=== PATIENT | female | born 1950 | race Caucasian/White ===

== ENCOUNTER 2018-10-25 15:21 | Emergency (ER) | payer MEDICARE, OTHER ==
[~2018-10-25] VITALS: Ht 152.4 cm; Wt 85.7 kg
[~2018-10-25 15:21] MED LIST: ALBU.083IS IH; AMLO10 PO; ASPI81CH PO; ASPI81EC PO; ATEN100 PO; ATOR40TA PO; BUME1 PO; BUME2 PO; CARB200; CARB200 PO; CARB200ER PO; CIME400 PO; CLON.2 PO; CLON.3TP TP; CLOP75 PO; CODGUAEL; CYCL10 PO; DIPH50 PO; DOCU100 PO; DOXA2 PO; ESOM20 PO; ESTRO; FAMO20 PO; FERR325 PO; FLUC150A; FLUSAL2505; FLUSAL2505 IH; FLUT.05NI; Ferrous Sulfat325 M2 PO; HYDACE5 PO; HYDCHL25 PO; HYDR1TAB94 PO; IBUP200 PO; IBUP800; IBUP800 PO; INSULANPEN SC; ISON300; Isosorbide Mono30 MG PO; LORA.5 PO; MECL25; MECL25 PO; META800 PO; METF500 PO; METF500C PO; METOPROLOL TART75 MG PO; MOTION RELIEF25 MG PO; Macrobid 100 M100 MG PO; Metoprolol Tar100 MG; NAPR250 PO; NITR.4SL SL; NITR100CA PO; OXYACE5T PO; OXYC5 PO; POTA10T PO; POTCHL20ER; POTCHL20ER PO; Plavix75 MG PO; RANO500T PO; SENN187 PO; SERT100 PO; SERT50 PO; SPIHYD; TELM80 PO; TIOT18 INH; TRIA80TC TOP; [UNRECOGNIZED DRUG - OTHER] PO
[2018-10-25 17:25] LABS: BASOPHILS ABSOLUTE AUTO 0.02 K/mm3 (0.00-0.23); BASOPHILS PERCENT AUTO 0 % (0-2); EOSINOPHILS ABSOLUTE AUTO 0.28 K/mm3 (0.00-0.68); EOSINOPHILS PERCENT AUTO 4 % (0-6); Hematocrit 33.7 % (33.0-51.0); Hemoglobin 10.7 g/dL (11.5-16.0); IMMATURE GRAN ABSOLUTE AUTO 0.03 K/mm3 (0.00-0.10); IMMATURE GRAN PERCENT AUTO 1 % (0-1); LYMPHOCYTES ABSOLUTE AUTO 1.19 K/mm3 (0.84-5.20); LYMPHOCYTES PERCENT AUTO 18 % (21-46); MONOCYTES ABSOLUTE AUTO 0.44 K/mm3 (0.16-1.47); MONOCYTES PERCENT AUTO 7 % (4-13); Mean Corpuscular HGB 26.5 pg (26.0-34.0); Mean Corpuscular HGB Conc 31.8 g/dL (31.5-36.5); Mean Corpuscular Volume 83 fL (80-100); Mean Platelet Volume 11.4 fL (9.1-12.4); NEUTROPHILS ABSOLUTE AUTO 4.58 K/mm3 (1.96-9.15); NEUTROPHILS PERCENT AUTO 70 % (41-73); Platelet Count 197 K/mm3 (150-400); RDW Coefficient Variation 14.6 % (11.7-14.2); RDW Standard Deviation 44.8 fL (35.1-46.3); Red Blood Cell Count 4.04 M/mm3 (3.80-5.20); White Blood Cell Count 6.54 K/mm3 (4.00-11.30)
[2018-10-25 17:42] LABS: Alanine Aminotransfer (ALT/SGP 15 U/L (12-78); Albumin, Blood 3.3 g/dL (3.4-5.0); Albumin/Globulin Ratio 0.9 (0.8-1.8); Alk Phos 107 U/L (50-136); Anion Gap 8 mmol/L (6-16); Aspartate Aminotrans (AST/SGOT 11 U/L (12-37); Bilirubin, Total 0.3 mg/dL (0.1-1.0); Blood Urea Nitrogen 27 mg/dL (8-24); Bun/Creatinine Ratio 22.3 (12.0-20.0); CO2, Blood 27 mmol/L (21-32); Calcium, Blood 8.2 mg/dL (8.5-10.1); Chloride, Blood 106 mmol/L (98-108); Creatinine, Blood 1.21 mg/dL (0.40-1.00); Globulin, Blood 3.6 g/dL (2.2-4.0); Glomerular Filtration Rate 47 (60-); Glucose, Blood 103 mg/dL (70-99); Potassium, Blood 4.2 mmol/L (3.5-5.5); Sodium, Blood 141 mmol/L (136-145); Total Protein, Blood 6.9 g/dL (6.4-8.2); Troponin I <0.015 ng/mL (0.000-0.040)
[2018-10-25 17:57] LABS: Source, Urine Voided
[2018-10-25 18:00] LABS: Appearance, Urine Clear (Clear); Bilirubin, Urine Neg (Neg); Blood, Urine Neg (Neg); Color, Urine Yellow (P-Yellow); Glucose Qualitative, Urine Neg (Neg); Ketones, Urine Neg (Neg); Leukocyte Esterase, Urine 1+ (Neg); Nitrite, Urine Neg (Neg); Protein, Urine 1+ (Neg); Specific Gravity, Urine 1.015 (1.003-1.022); Urobilinogen, Urine NORM (Normal)
[2018-10-25 18:50] LABS: Red Blood Cells, Urine 0-2 /hpf (0-2)
[2018-10-25 18:51] LABS: Bacteria Mod /hpf; Squamous Epithelial Cells Many /hpf (Few)
== END 2018-10-25 19:27 | disposition home or self-care (01) ==
LOC: ER 15:21
PROVIDERS: Emergency Medicine
DX: R55 Syncope and collapse (principal); I25.10 Atherosclerotic heart disease of native coronary artery without angina pectoris; Z88.2 Allergy status to sulfonamides; Z88.8 Allergy status to other drugs, medicaments and biological substances; Z79.899 Other long term (current) drug therapy; Z79.84 Long term (current) use of oral hypoglycemic drugs; Z79.82 Long term (current) use of aspirin; I10 Essential (primary) hypertension; E78.00 Pure hypercholesterolemia, unspecified; Z86.73 Personal history of transient ischemic attack (TIA), and cerebral infarction without residual deficits; E11.9 Type 2 diabetes mellitus without complications; Z87.891 Personal history of nicotine dependence
CPT/HCPCS: 80053; 81001; 84484; 85025; 87086; 93005; 93010; 99284-25

== ENCOUNTER 2018-12-16 15:46 | Inpatient (IN) | payer MEDICARE, OTHER ==
[~2018-12-16] VITALS: Ht 152.4 cm; Wt 89.0 kg
[~2018-12-16 15:46] MED LIST changes: +METO50 PO; -METOPROLOL TART75 MG PO
[2018-12-16 16:30] LABS: BASOPHILS ABSOLUTE AUTO 0.02 K/mm3 (0.00-0.23); BASOPHILS PERCENT AUTO 0 % (0-2); EOSINOPHILS ABSOLUTE AUTO 0.31 K/mm3 (0.00-0.68); EOSINOPHILS PERCENT AUTO 5 % (0-6); Hematocrit 35.8 % (33.0-51.0); Hemoglobin 11.5 g/dL (11.5-16.0); IMMATURE GRAN ABSOLUTE AUTO 0.01 K/mm3 (0.00-0.10); IMMATURE GRAN PERCENT AUTO 0 % (0-1); LYMPHOCYTES ABSOLUTE AUTO 1.27 K/mm3 (0.84-5.20); LYMPHOCYTES PERCENT AUTO 20 % (21-46); MONOCYTES ABSOLUTE AUTO 0.45 K/mm3 (0.16-1.47); MONOCYTES PERCENT AUTO 7 % (4-13); Mean Corpuscular HGB Conc 32.1 g/dL (31.5-36.5); Mean Corpuscular Volume 87 fL (80-100); Mean Platelet Volume 10.5 fL (9.1-12.4); NEUTROPHILS ABSOLUTE AUTO 4.19 K/mm3 (1.96-9.15); NEUTROPHILS PERCENT AUTO 67 % (41-73); Platelet Count 268 K/mm3 (150-400); RDW Coefficient Variation 14.5 % (11.7-14.2); RDW Standard Deviation 46.2 fL (35.1-46.3); Red Blood Cell Count 4.11 M/mm3 (3.80-5.20); White Blood Cell Count 6.25 K/mm3 (4.00-11.30)
[2018-12-16 16:48] LABS: Alanine Aminotransfer (ALT/SGP 15 U/L (12-78); Albumin, Blood 3.5 g/dL (3.4-5.0); Albumin/Globulin Ratio 0.9 (0.8-1.8); Alk Phos 137 U/L (50-136); Anion Gap 6 mmol/L (6-16); Aspartate Aminotrans (AST/SGOT 15 U/L (12-37); Bilirubin, Total 0.2 mg/dL (0.1-1.0); Blood Urea Nitrogen 21 mg/dL (8-24); Bun/Creatinine Ratio 18.1 (12.0-20.0); CO2, Blood 28 mmol/L (21-32); Calcium, Blood 8.7 mg/dL (8.5-10.1); Chloride, Blood 106 mmol/L (98-108); Creatinine, Blood 1.16 mg/dL (0.40-1.00); Glomerular Filtration Rate 49 (60-); Glucose, Blood 105 mg/dL (70-99); Potassium, Blood 4.8 mmol/L (3.5-5.5); Sodium, Blood 140 mmol/L (136-145); Total Protein, Blood 7.5 g/dL (6.4-8.2); Troponin I <0.015 ng/mL (0.000-0.040)
[2018-12-16] MEDS ORDERED: POTA10T PO (20:18)
[2018-12-16] MEDS ORDERED: DOCU100 PO (20:25)
[2018-12-16] MEDS ORDERED: TORSE20 PO (20:54)
[2018-12-16] MEDS ORDERED: Isosorbide Mono30 MG PO (20:54)
--- NOTE | 2018-12-16 23:16 | NUR ---
BLOOD SUGAR: APPROX 2219 PATIENTS BLOOD GLUCOSE WAS 44, PATIENT ALERT AND DENIES ANY SYMPTOMS. PATIENT PROVIDED WITH A SANDWICH AND TAPIOCA PUDDING PER REQUEST, ALL VSS. APPROX 2255 PATIENT BLOOD SUGAR 115
[2018-12-17 04:36] LABS: Bun/Creatinine Ratio 19.3 (12.0-20.0); Calcium, Blood 8.9 mg/dL (8.5-10.1); Creatinine, Blood 1.09 mg/dL (0.40-1.00); Potassium, Blood 3.9 mmol/L (3.5-5.5)
--- NOTE | 2018-12-17 04:38 | NUR ---
SHIFT SUMMARY: PATIENT ARRIVED TO [facility] AT APPROX 2140 FROM ED. PATIENT ALERT AND ORIENTED AND STABLE WITH AMBULATION. VSS, SON AT BEDSIDE, CALL LIGHT WITHIN REACH, ADMISSION COMPLETED AND PATIENT ORIENTED TO ROOM, CALL LIGHT AND HOSPITAL POLICIES.
--- NOTE | 2018-12-17 12:44 | NUR ---
DR TIPTON SPOKE WITH DR TIPTON REGARDING PT BLOOD PRESSURE. THIS MORNING DURING ROUNDS HE STATED HE WANTED TO SEE IF THE B/P REDUCED WITH THE PO MEDICATIONS NOT IV. ADMINISTERED PO MED AND RECHECKED PER INSTRUCTIONS THIS AFTERNOON. PT SYSTOLIC CONTINUES IN 190'S, CALLED DR TIPTON AND HE IS ADDING ADDITIONAL PO MEDS TO BE GIVEN, WAIT ONE HOUR, RECHECK B/P, IF IT HAS NOT DECREASED, THEN GIVE HYDRALAZINE IV. THIS NURSE TO ADD NURSE NOTIFY AND FOLLOW UP.
--- NOTE | 2018-12-17 17:49 | NUR ---
HYPERTENSION: PT HAS CONTINUED TO HAVE HYPERTENSION THROUGHOUT THE SHIFT, HER DIASTOLIC PRESSURE INCREASED FROM 60'S TO 110'S THIS AFTERNOON. CALLED DR. TIPTON TO REPORT CHANGE AND ASK FOR FURTHER ORDERS. DR TIPTON ASKED TO HAVE CATAPRESS GIVEN EARLY AND ADD THE SUGGESTED MEDICATIONS FROM DR. MOSQUERA. ENTERED CHANGES AND WILL ADMINISTER MEDICATION. IF THESE CHANGES DO NOT DECREASE B/P, START NICARDAPINE DRIP AND IF NECESSARY TRANSFER TO ICU. WILL ENTER NURSE NOTIFY TO COMMUNICATE THESE VERBAL ORDERS.
--- NOTE | 2018-12-17 19:51 | NUR ---
PT CALM AT TIME OF SHIFT CHANGE, DIASTOLIC BLOOD PRESSURE HAS RETURNED TO 60'S AFTER INTERVENTIONS AND MEDICATION ADMINISTRATION. WILL CONTINUE TO MONITOR AND GIVE REPORT TO NOC RN.
[2018-12-18 04:26] LABS: Bun/Creatinine Ratio 17.4 (12.0-20.0); Calcium, Blood 8.9 mg/dL (8.5-10.1); Creatinine, Blood 1.21 mg/dL (0.40-1.00); Potassium, Blood 3.6 mmol/L (3.5-5.5)
--- NOTE | 2018-12-18 05:57 | NUR ---
ELEVATED BLOOD PRESSURE DR GALVEZ NOTIFIED THAT PATIENT'S BLOOD PRESSURE IS IN THE 180'S-190'S SYSTOLICALLY, THAT THE PATIENT IS NAUSOUS AND HAS A HEADACHE. A ONE TIME DOES OF 10 MG OF HYDRALAZINE IV WAS ORDERED. THEN A HALF HOUR AFTER THAT DOES, IF PATIENT'S SYSTOLIC BLOOD PRESSURE IS STILL GREATER THAN 180 ANOTHER 10 MG DOSE OF IV HYDRALAZINE IS TO BE GIVEN.
--- NOTE | 2018-12-18 06:46 | NUR ---
SHIFT SUMMARY PATIENT APPEARED TO SLEEP WELL THROUGHOUT THE NIGHT. HOWEVER, PATIENT STARTED EXPERIENCING NAUSEA, A HEADACHE, AND ELEVATED BLOOD PRESSURE, AND SHAKES THIS AM. FIRST DOSE OF HYDRALAZINE GIVERN BUT SECOND DOSE A HALF HOUR LATER WAS HELD DUE TO PATIENT'S SYSTOLIC BLOOD PRESSURE BEING IN THE 150'S. PATIENT STATES SHE STILL DOESN'T "FEEL GOOD" THIS MORNING THROUGH. PATIENT CURRENTLY RESTING IN THE DARK ROOM, WITH A COOL CLOTH ON HER FORHEAD. PATIENT APPEARS TO BE NAPPING ON AND OFF THIS MORNING. VITAL SIGNS CHARTED. PATIENT'S STAYED THE NIGHT AT THE BEDSIDE. WILL CONTINUE TO MONITOR PATIENT AND REPORT TO ONCOMING RN.
--- NOTE | 2018-12-18 08:00 | NUR ---
PO B/P MEDS GIVEN WITH SIP OF WATER WILL RECHECK DR TIPTON BY TO SEE PT WILL ADJUST MEDS AWAITING DR WHYTE FOR UPPER ENDO TODAY NPO WILL GIVE OTHER MEDS AFTER
--- NOTE | 2018-12-18 09:49 | NUR ---
PT PLACED ON NC BIOX 87% RA PT REPORTED BEING DIZZY WHEN GETTING UP WITH RT EARLIER STILL ALSO REPORTING HEARTBEAT IN HER EAR
--- NOTE | 2018-12-18 11:15 | NUR ---
PT TRANSPORTED TO DAYSURGERY FOR SCOPE
--- NOTE | 2018-12-18 11:20 | NUR ---
History, Chart, Medications and Allergies reviewed before start of procedure. Patient confirms NPO status and agrees with scheduled surgery.
--- NOTE | 2018-12-18 11:25 | NUR ---
12/18/18 1125 Virgilio Rene PATIENT DETERMINED TO BE ASA APPROPRIATE FOR PROPOFOL SEDATION PRIOR TO START OF PROCEDURE BY . 3-LEAD EKG REVIEWED WITH PHYSICIAN PRIOR TO START OF PROCEDURE.PATIENT CONFIRMS NPO STATUS AND AGREES WITH SCHEDULED PROCEDURE.History, Chart, Medications and Allergies reviewed before start of procedure.MONITOR INTACT WITH CONTINUOUS PULSE OXIMETRY AND INTERMITTENT BP.O2 VIA N/C INTACT THROUGHOUT SEDATION/PROCEDURE.Bite Block Placed
--- NOTE | 2018-12-18 12:03 | NUR ---
PT BACK TO ROOM PCU 15 FROM UPPER ENDO FINDING ULCER NO PATH
--- NOTE | 2018-12-18 15:57 | NUR ---
pt visiting with family stated she eddie food well no nausea or pain biox on ra went down to 88% when pt started to doze put pt on 2 l nc up to 94%
--- NOTE | 2018-12-18 20:11 | NUR ---
Shift Summary: Pt has been resting in room after coming back from Scope. Has been dozing on and off. States that she is just tired. See endo report for results of scope. Pt BP has improved this shift, HR has been stable. Pt biox has been 87-90's. Has required O2 PRN for sleep. Pt has tolerated diet post scope and has denied pain. Report was given to night RN. Stable at the end of shift.
[2018-12-19 04:39] LABS: Bun/Creatinine Ratio 19.2 (12.0-20.0); Calcium, Blood 8.7 mg/dL (8.5-10.1); Creatinine, Blood 1.2 mg/dL (0.40-1.00); Potassium, Blood 3.5 mmol/L (3.5-5.5)
--- NOTE | 2018-12-19 06:22 | NUR ---
SHIFT SUMMARY PATIENT PLEASENT AND COOPERATIVE THROUGHOUT THE NIGHT. PATIENT APPEARED TO SLEEP WELL LAST NIGHT WITH NO COMPLAINTS OF FURTHER HEADACHE, NAUSEA, OR SHAKINESS. PATIENT'S CPAP AND CONTINUOUS BIOX IN LACE THROUGHOUT THE NIGHT. PATIENT'S STAYED THE NIGHT AT THE BEDSIDE. VITAL SIGNS CHARTED. WILL CONTINUE TO MONITOR PATIENT AND REPORT TO ONCOMING RN.
--- NOTE | 2018-12-19 08:16 | NUR ---
RECEIVED REPORT AND ASSUMED CARE OF PATIENT. SHE IS PLEASANT AND ANXIOUS TO GO HOME TODAY.
--- NOTE | 2018-12-19 10:41 | NUR ---
DR GALLEGO TO SEE PATIENT, PLEASED WITH PROGRESS AND STATED SHE WILL PLACE D/C ORDERS FOR PATIENT.
[2018-12-19] MEDS ORDERED: LOSA50 PO (11:37)
[2018-12-19] MEDS ORDERED: PANT20 PO (11:38)
--- NOTE | 2018-12-19 16:15 | NUR ---
PT EDUCATED ABOUT MEDICATION CHANGES AND WENT OVER LIST AND DOSAGES. ANSWERED QUESTIONS FOR FAMILY RELATED TO DISCHARGE.
== END 2018-12-19 13:37 | disposition home or self-care (01) | DRG 384 ==
LOC: ER 15:46 → PCU 21:42
PROVIDERS: Internal Medicine; Physician Assistant; ADMIT Family Medicine
DX: K25.9 Gastric ulcer, unspecified as acute or chronic, without hemorrhage or perforation (principal); I50.32 Chronic diastolic (congestive) heart failure; Z68.42 Body mass index [BMI] 45.0-49.9, adult; R00.1 Bradycardia, unspecified; E66.01 Morbid (severe) obesity due to excess calories; F32.9 Major depressive disorder, single episode, unspecified; J44.9 Chronic obstructive pulmonary disease, unspecified; I11.0 Hypertensive heart disease with heart failure; K22.2 Esophageal obstruction; G47.33 Obstructive sleep apnea (adult) (pediatric); T44.7X5A Adverse effect of beta-adrenoreceptor antagonists, initial encounter; I16.0 Hypertensive urgency; I25.10 Atherosclerotic heart disease of native coronary artery without angina pectoris; K21.9 Gastro-esophageal reflux disease without esophagitis; E11.42 Type 2 diabetes mellitus with diabetic polyneuropathy; Z86.73 Personal history of transient ischemic attack (TIA), and cerebral infarction without residual deficits; I25.2 Old myocardial infarction; Z99.81 Dependence on supplemental oxygen; Z79.01 Long term (current) use of anticoagulants; Z79.82 Long term (current) use of aspirin; Z95.5 Presence of coronary angioplasty implant and graft
CPT/HCPCS: 36415; 71046; 80048; 80053; 82947; 83690; 83880; 84484; 85025; 93005; 93010; 94640; 94760; 94762; 97162; 97530; 99285-25; C9113; J0360; J1650; J1815; J2405; J2704; J7120

== ENCOUNTER → 2018-12-30 | Outpatient (CLI) | payer MEDICARE, OTHER ==
[~2018-12-30] MED LIST changes: +LOSA50 PO; +PANT20 PO; +TORSE20 PO
[2018-12-30 19:23] LABS: Bun/Creatinine Ratio 14.4 (12.0-20.0); Creatinine, Blood 1.11 mg/dL (0.40-1.00); Potassium, Blood 4.3 mmol/L (3.5-5.5)
== END | disposition home or self-care (01) ==
LOC: LAB 19:01 → LAB SHORT 19:01
PROVIDERS: Nurse Practitioner Family
DX: N18.9 Chronic kidney disease, unspecified (principal)
CPT/HCPCS: 80048

== ENCOUNTER → 2019-03-30 | Outpatient (CLI) | payer MEDICARE, OTHER ==
[~2019-03-30] MED LIST changes: -ALBU.083IS IH; +ALBU2.5V5 INH; +Catapres0.2 MG; +ONDA4ODT MM
[2019-04-01 15:14] LABS: Stool Occult Bld Immuno 1 Negative (NEGATIVE); Stool Occult Bld Immuno 2 Negative (NEGATIVE)
== END | disposition home or self-care (01) ==
LOC: LAB SHORT 09:00 → LAB 09:00
PROVIDERS: Internal Medicine Gastroenterology
DX: Z12.11 Encounter for screening for malignant neoplasm of colon (principal)
CPT/HCPCS: 82274

== ENCOUNTER 2019-04-02 11:27 | Emergency (ER) | payer MEDICARE, OTHER ==
[~2019-04-02] VITALS: Ht 152.4 cm; Wt 88.0 kg
[~2019-04-02 11:27] MED LIST changes: -Catapres0.2 MG; -ONDA4ODT MM
[2019-04-02 12:22] LABS: BASOPHILS ABSOLUTE AUTO 0.03 K/mm3 (0.00-0.23); BASOPHILS PERCENT AUTO 1 % (0-2); EOSINOPHILS ABSOLUTE AUTO 0.22 K/mm3 (0.00-0.68); EOSINOPHILS PERCENT AUTO 4 % (0-6); Hematocrit 35.6 % (33.0-51.0); Hemoglobin 11.9 g/dL (11.5-16.0); IMMATURE GRAN ABSOLUTE AUTO 0.01 K/mm3 (0.00-0.10); IMMATURE GRAN PERCENT AUTO 0 % (0-1); LYMPHOCYTES ABSOLUTE AUTO 0.85 K/mm3 (0.84-5.20); LYMPHOCYTES PERCENT AUTO 15 % (21-46); MONOCYTES ABSOLUTE AUTO 0.34 K/mm3 (0.16-1.47); MONOCYTES PERCENT AUTO 6 % (4-13); Mean Corpuscular HGB 28.7 pg (26.0-34.0); Mean Corpuscular HGB Conc 33.4 g/dL (31.5-36.5); Mean Corpuscular Volume 86 fL (80-100); Mean Platelet Volume 10.1 fL (9.1-12.4); NEUTROPHILS ABSOLUTE AUTO 4.07 K/mm3 (1.96-9.15); NEUTROPHILS PERCENT AUTO 74 % (41-73); Platelet Count 244 K/mm3 (150-400); RDW Coefficient Variation 12.8 % (11.7-14.2); RDW Standard Deviation 39.7 fL (35.1-46.3); Red Blood Cell Count 4.15 M/mm3 (3.80-5.20); White Blood Cell Count 5.52 K/mm3 (4.00-11.30)
[2019-04-02 12:44] LABS: Alanine Aminotransfer (ALT/SGP 21 U/L (12-78); Albumin, Blood 3.4 g/dL (3.4-5.0); Albumin/Globulin Ratio 0.9 (0.8-1.8); Alk Phos 134 U/L (50-136); Anion Gap 5 mmol/L (6-16); Aspartate Aminotrans (AST/SGOT 15 U/L (12-37); Bilirubin, Total 0.3 mg/dL (0.1-1.0); Blood Urea Nitrogen 16 mg/dL (8-24); CO2, Blood 35 mmol/L (21-32); Chloride, Blood 98 mmol/L (98-108); Globulin, Blood 3.8 g/dL (2.2-4.0); Glomerular Filtration Rate 59 (60-); Glucose, Blood 114 mg/dL (70-99); Potassium, Blood 3.5 mmol/L (3.5-5.5); Sodium, Blood 138 mmol/L (136-145); Total Protein, Blood 7.2 g/dL (6.4-8.2); Troponin I <0.015 ng/mL (0.000-0.040)
[2019-04-02] MEDS ORDERED: ONDA4ODT MM (12:49)
[2019-04-02] MEDS ORDERED: HYDCHL25 PO (13:58)
== END 2019-04-02 14:37 | disposition home or self-care (01) ==
LOC: ER 11:27
PROVIDERS: Emergency Medicine
DX: I10 Essential (primary) hypertension (principal); Z88.8 Allergy status to other drugs, medicaments and biological substances; Z88.2 Allergy status to sulfonamides; Z79.899 Other long term (current) drug therapy; Z79.84 Long term (current) use of oral hypoglycemic drugs; Z79.82 Long term (current) use of aspirin; E78.00 Pure hypercholesterolemia, unspecified; J44.9 Chronic obstructive pulmonary disease, unspecified; Z86.73 Personal history of transient ischemic attack (TIA), and cerebral infarction without residual deficits; E11.9 Type 2 diabetes mellitus without complications; I25.2 Old myocardial infarction; Z87.891 Personal history of nicotine dependence
CPT/HCPCS: 36415; 80053; 83880; 84484; 85025; 93005; 93010; 99283-25

== ENCOUNTER 2019-04-06 16:00 | Emergency (ER) | payer MEDICARE, OTHER ==
[~2019-04-06] VITALS: Ht 152.4 cm; Wt 87.5 kg
[~2019-04-06 16:00] MED LIST changes: +ONDA4ODT MM
[2019-04-06 16:39] LABS: BASOPHILS ABSOLUTE AUTO 0.03 K/mm3 (0.00-0.23); BASOPHILS PERCENT AUTO 1 % (0-2); EOSINOPHILS ABSOLUTE AUTO 0.17 K/mm3 (0.00-0.68); EOSINOPHILS PERCENT AUTO 3 % (0-6); Hematocrit 35.6 % (33.0-51.0); Hemoglobin 12.2 g/dL (11.5-16.0); IMMATURE GRAN ABSOLUTE AUTO 0.02 K/mm3 (0.00-0.10); IMMATURE GRAN PERCENT AUTO 0 % (0-1); LYMPHOCYTES ABSOLUTE AUTO 0.93 K/mm3 (0.84-5.20); LYMPHOCYTES PERCENT AUTO 15 % (21-46); MONOCYTES ABSOLUTE AUTO 0.42 K/mm3 (0.16-1.47); MONOCYTES PERCENT AUTO 7 % (4-13); Mean Corpuscular HGB 28.7 pg (26.0-34.0); Mean Corpuscular HGB Conc 34.3 g/dL (31.5-36.5); Mean Corpuscular Volume 84 fL (80-100); Mean Platelet Volume 10.3 fL (9.1-12.4); NEUTROPHILS ABSOLUTE AUTO 4.65 K/mm3 (1.96-9.15); NEUTROPHILS PERCENT AUTO 75 % (41-73); Platelet Count 290 K/mm3 (150-400); RDW Coefficient Variation 12.7 % (11.7-14.2); RDW Standard Deviation 38.7 fL (35.1-46.3); Red Blood Cell Count 4.25 M/mm3 (3.80-5.20); White Blood Cell Count 6.22 K/mm3 (4.00-11.30)
[2019-04-06 17:02] LABS: Albumin, Blood 3.6 g/dL (3.4-5.0); Albumin/Globulin Ratio 0.9 (0.8-1.8); Bilirubin, Total 0.3 mg/dL (0.1-1.0); Bun/Creatinine Ratio 24.6 (12.0-20.0); Calcium, Blood 9.1 mg/dL (8.5-10.1); Creatinine, Blood 1.18 mg/dL (0.40-1.00); Globulin, Blood 3.9 g/dL (2.2-4.0); Potassium, Blood 3.1 mmol/L (3.5-5.5); Total Protein, Blood 7.5 g/dL (6.4-8.2)
[2019-04-06 21:13] LABS: Source, Urine Clean Catch
[2019-04-06 21:17] LABS: Bilirubin, Urine Neg (Neg); Blood, Urine Neg (Neg); Glucose Qualitative, Urine Neg (Neg); Ketones, Urine Neg (Neg); Leukocyte Esterase, Urine Neg (Neg); Nitrite, Urine Neg (Neg); Protein, Urine 3+ (Neg); Urobilinogen, Urine NORM (Normal)
[2019-04-06 21:23] LABS: Appearance, Urine Clear (Clear); Color, Urine Yellow (P-Yellow)
[2019-04-06 21:24] LABS: Bacteria Few /hpf; Red Blood Cells, Urine 0-2 /hpf (0-2); Squamous Epithelial Cells Few /hpf (Few); White Blood Cells, Urine 0-2 /hpf (0-5)
== END 2019-04-07 00:57 | disposition home or self-care (01) ==
LOC: ER 16:00
PROVIDERS: Physician Assistant
DX: I10 Essential (primary) hypertension (principal); E87.6 Hypokalemia; Z88.8 Allergy status to other drugs, medicaments and biological substances; Z88.2 Allergy status to sulfonamides; Z79.899 Other long term (current) drug therapy; Z79.82 Long term (current) use of aspirin; Z86.73 Personal history of transient ischemic attack (TIA), and cerebral infarction without residual deficits; E11.9 Type 2 diabetes mellitus without complications; I25.2 Old myocardial infarction; Z87.891 Personal history of nicotine dependence
CPT/HCPCS: 80053; 81001; 84484; 85025; 96374; 99283-25; J0360

== ENCOUNTER → 2019-04-25 | Outpatient (CLI) | payer MEDICARE, OTHER ==
[~2019-04-25] MED LIST changes: +Catapres0.2 MG
[2019-04-25 15:01] LABS: Protein, Urine Quantitative 52.8 mg/dL (0.0-11.9)
[2019-04-28 17:07] LABS: M-SPIKE, % Not Observed % (Not Observed); PROTEIN,TOTAL,URINE 54.4 mg/dL (Not Estab.)
== END | disposition home or self-care (01) ==
LOC: LAB SHORT 11:26 → LAB 11:26
PROVIDERS: Internal Medicine
DX: N18.3 Chronic kidney disease, stage 3 (moderate) (principal)
CPT/HCPCS: 81050; 82530; 84156; 84166

== ENCOUNTER 2019-05-20 14:36 | Emergency (ER) | payer MEDICARE, OTHER ==
[~2019-05-20] VITALS: Ht 152.4 cm; Wt 88.9 kg
[~2019-05-20 14:36] MED LIST changes: -Catapres0.2 MG
[2019-05-20 15:18] LABS: BASOPHILS ABSOLUTE AUTO 0.03 K/mm3 (0.00-0.23); BASOPHILS PERCENT AUTO 1 % (0-2); EOSINOPHILS ABSOLUTE AUTO 0.26 K/mm3 (0.00-0.68); EOSINOPHILS PERCENT AUTO 5 % (0-6); Hematocrit 34.7 % (33.0-51.0); IMMATURE GRAN ABSOLUTE AUTO 0.01 K/mm3 (0.00-0.10); IMMATURE GRAN PERCENT AUTO 0 % (0-1); LYMPHOCYTES ABSOLUTE AUTO 0.97 K/mm3 (0.84-5.20); LYMPHOCYTES PERCENT AUTO 17 % (21-46); MONOCYTES ABSOLUTE AUTO 0.46 K/mm3 (0.16-1.47); MONOCYTES PERCENT AUTO 8 % (4-13); Mean Corpuscular HGB 29.3 pg (26.0-34.0); Mean Corpuscular HGB Conc 34.6 g/dL (31.5-36.5); Mean Corpuscular Volume 85 fL (80-100); Mean Platelet Volume 9.9 fL (9.1-12.4); NEUTROPHILS ABSOLUTE AUTO 3.93 K/mm3 (1.96-9.15); NEUTROPHILS PERCENT AUTO 70 % (41-73); Platelet Count 240 K/mm3 (150-400); RDW Coefficient Variation 12.6 % (11.7-14.2); RDW Standard Deviation 38.5 fL (35.1-46.3); White Blood Cell Count 5.66 K/mm3 (4.00-11.30)
[2019-05-20 15:49] LABS: Albumin, Blood 3.5 g/dL (3.4-5.0); Albumin/Globulin Ratio 0.9 (0.8-1.8); Bilirubin, Total 0.2 mg/dL (0.1-1.0); Bun/Creatinine Ratio 27.5 (12.0-20.0); Calcium, Blood 9.1 mg/dL (8.5-10.1); Creatinine, Blood 1.09 mg/dL (0.40-1.00); Globulin, Blood 3.9 g/dL (2.2-4.0); Total Protein, Blood 7.4 g/dL (6.4-8.2)
[2019-05-20] MEDS ORDERED: Catapres0.2 MG (17:47)
[2019-05-20] MEDS ORDERED: CARB200 PO (17:47)
[2019-05-20] MEDS ORDERED: LOSA50 PO (17:49)
[2019-05-20] MEDS ORDERED: METF500 PO (17:50)
== END 2019-05-20 21:01 | disposition home or self-care (01) ==
LOC: ER 14:36
PROVIDERS: Physician Assistant
DX: G43.909 Migraine, unspecified, not intractable, without status migrainosus (principal); I10 Essential (primary) hypertension; E78.00 Pure hypercholesterolemia, unspecified; J44.9 Chronic obstructive pulmonary disease, unspecified; I25.2 Old myocardial infarction; E11.9 Type 2 diabetes mellitus without complications; Z86.73 Personal history of transient ischemic attack (TIA), and cerebral infarction without residual deficits; Z87.891 Personal history of nicotine dependence; Z88.8 Allergy status to other drugs, medicaments and biological substances; Z88.2 Allergy status to sulfonamides; Z79.899 Other long term (current) drug therapy; Z79.82 Long term (current) use of aspirin; Z79.84 Long term (current) use of oral hypoglycemic drugs; Z79.02 Long term (current) use of antithrombotics/antiplatelets
CPT/HCPCS: 36415; 70450; 80053; 85025; 93005; 93010; 96374; 96375; 99284-25; J0780; J1200; J1885

== ENCOUNTER 2019-09-29 02:46 | Observation (INO) | payer MEDICARE, OTHER ==
[~2019-09-29] VITALS: Ht 152.4 cm; Wt 91.7 kg
[~2019-09-29 02:46] MED LIST changes: +Catapres0.2 MG
[2019-09-29 04:01] LABS: BASOPHILS ABSOLUTE AUTO 0.02 K/mm3 (0.00-0.23); BASOPHILS PERCENT AUTO 0 % (0-2); EOSINOPHILS ABSOLUTE AUTO 0.22 K/mm3 (0.00-0.68); EOSINOPHILS PERCENT AUTO 3 % (0-6); Hematocrit 31.2 % (33.0-51.0); Hemoglobin 10.4 g/dL (11.5-16.0); IMMATURE GRAN ABSOLUTE AUTO 0.04 K/mm3 (0.00-0.10); IMMATURE GRAN PERCENT AUTO 1 % (0-1); LYMPHOCYTES ABSOLUTE AUTO 0.58 K/mm3 (0.84-5.20); LYMPHOCYTES PERCENT AUTO 7 % (21-46); MONOCYTES ABSOLUTE AUTO 0.44 K/mm3 (0.16-1.47); MONOCYTES PERCENT AUTO 6 % (4-13); Mean Corpuscular HGB 29.9 pg (26.0-34.0); Mean Corpuscular HGB Conc 33.3 g/dL (31.5-36.5); Mean Corpuscular Volume 90 fL (80-100); Mean Platelet Volume 10.6 fL (9.1-12.4); NEUTROPHILS ABSOLUTE AUTO 6.69 K/mm3 (1.96-9.15); NEUTROPHILS PERCENT AUTO 84 % (41-73); Platelet Count 205 K/mm3 (150-400); RDW Coefficient Variation 12.6 % (11.7-14.2); RDW Standard Deviation 41.3 fL (35.1-46.3); Red Blood Cell Count 3.48 M/mm3 (3.80-5.20); White Blood Cell Count 7.99 K/mm3 (4.00-11.30)
[2019-09-29 04:16] LABS: Alanine Aminotransfer (ALT/SGP 20 U/L (12-78); Albumin, Blood 3.2 g/dL (3.4-5.0); Albumin/Globulin Ratio 0.9 (0.8-1.8); Alk Phos 133 U/L (50-136); Anion Gap 10 mmol/L (6-16); Aspartate Aminotrans (AST/SGOT 10 U/L (12-37); Bilirubin, Total 0.2 mg/dL (0.1-1.0); Blood Urea Nitrogen 25 mg/dL (8-24); Bun/Creatinine Ratio 19.1 (12.0-20.0); CO2, Blood 23 mmol/L (21-32); Calcium, Blood 8.6 mg/dL (8.5-10.1); Chloride, Blood 105 mmol/L (98-108); Creatinine, Blood 1.31 mg/dL (0.40-1.00); Globulin, Blood 3.6 g/dL (2.2-4.0); Glomerular Filtration Rate 43 (60-); Glucose, Blood 262 mg/dL (70-99); Potassium, Blood 3.5 mmol/L (3.5-5.5); Sodium, Blood 138 mmol/L (136-145); Total Protein, Blood 6.8 g/dL (6.4-8.2); Troponin I <0.015 ng/mL (0.000-0.040)
[2019-09-29 05:15] LABS: PCO2 Arterial 41.3 mmHg (35-45); PO2 Arterial 83.1 mmHg (80-100); pH Blood Arterial 7.42 (7.35-7.45)
[2019-09-29] MEDS ORDERED: AMLO10 PO (06:35)
[2019-09-29] MEDS ORDERED: Isosorbide Mono60 MG PO (06:37)
[2019-09-29] MEDS ORDERED: GLIP5 PO (06:37)
[2019-09-29] MEDS ORDERED: POTA10T PO ×2 (06:38→07:44)
[2019-09-29] MEDS ORDERED: POTASSIUM (06:39)
[2019-09-29] MEDS ORDERED: MAGNESIUM OXID500 MG (06:39)
[2019-09-29] MEDS ORDERED: ESTROGEN (06:40)
--- NOTE | 2019-09-29 07:00 | NUR ---
ADMIT NOTE- PT ADMITTED THROUGH THE ED FOR COPD EXACERBATION. PT HAS AN EXTENSIVE CARDIAC Hx INCLUDING OPEN HEART SURGERY IN 2018. PT HAS HOME MEDICATIONS ON A LIST ON HER CELL PHONE WHICH SHE PROVIDED TO STAFF. MEDICATIONS RECONCILED UPON ARRIVAL. PT HAS NO S&S OF DISTRESS NOTED ON ARRIVAL. PT SATS IN THE 90'S ON ROOM AIR. PT ON SOLUMEDROL. HOME MEDS NOT YET ORDERED. WILL SPEAK TO HOSPITALIST DR BLOUNT ABOUT HOME MEDS.
[2019-09-29] MEDS ORDERED: AMIL5 PO (07:36)
[2019-09-29] MEDS ORDERED: CARV3.125 PO (07:37)
[2019-09-29] MEDS ORDERED: MOTION RELIEF25 MG PO (07:41)
[2019-09-29] MEDS ORDERED: MIRALAX17 GM PO (07:46)
--- NOTE | 2019-09-29 10:00 | NUR ---
PT HAS ADA DIET ORDER AND INSULIN ORDERED. AC & HS BLOOD SUGARS WILL BE DONE. PT BG [phone] LABS 211 ON CBG AFTER SHE ATE HER BREAKFAST. ATTEMPTED TO CALL DR BLOUNT LEFT MESSAGE WAITING FOR A CALL BACK INSULIN HELD FOR CJ. PT RECIEVED LOVENOX. NO MED ORDERS YET. Hx COMPLETED.
--- NOTE | 2019-09-29 10:23 | NUR ---
Pt arrived after shift change, report was not given to me. CBG was checked late.
[2019-09-29 12:55] LABS: CPK Creatine Kinase 71 U/L (26-193); Troponin I <0.015 ng/mL (0.000-0.040)
[2019-09-29 17:16] LABS: Adenovirus Not Detected (NOT DETECT); Bordetella pertussis Not Detected (NOT DETECT); Chlamydophila pneumoniae Not Detected (NOT DETECT); Coronavirus 229E Not Detected (NOT DETECT); Coronavirus HKU1 Not Detected (NOT DETECT); Coronavirus NL63 Not Detected (NOT DETECT); Coronavirus OC43 Not Detected (NOT DETECT); Human Metapneumovirus Not Detected (NOT DETECT); Human Rhinovirus/Enterovirus Not Detected (NOT DETECT); Influenza A Not Detected (NOT DETECT); Influenza A/2009-H1 Not Detected (NOT DETECT); Influenza A/H1 Not Detected (NOT DETECT); Influenza A/H3 Not Detected (NOT DETECT); Influenza B Not Detected (NOT DETECT); Mycoplasma pneumoniae Not Detected (NOT DETECT); Parainfluenza Virus 1 Not Detected (NOT DETECT); Parainfluenza Virus 2 Not Detected (NOT DETECT); Parainfluenza Virus 3 Not Detected (NOT DETECT); Parainfluenza Virus 4 Not Detected (NOT DETECT); Respiratory Syncytial Virus Not Detected (NOT DETECT)
--- NOTE | 2019-09-29 18:30 | NUR ---
SHIFT SUMMARY- PT ALERT, ORIENTED AMD INDEPENDENT IN THE ROOM. PT FAMILY AT THE BEDSIDE. PT HOME C-PAP BROUGHT IN BY PT FAMILY, NOTIFIED RT TIRSO WHEN IT ARRIVED SO IT CAN BE EVALUATED FOR FUNCTION. PT HAS A NEW ORDER FO Q3 BLOOD PRESSURES. PT BP TENDS TO BE VERY LABILE AND JUMPS FROM SBP 190 TO SBP 93 IN AN HOUR. (PER DR DIAZ). PT AWARE, HOME MEDICATIONS ORDERED. PT HAS HAD NO C/O CP OR DISCOMFORT OR DISTRESS T/O THE DAY. PT STATED SHE IS STILL SOB ON EXERTION HOWEVER SHE HAS BEEN UP INDEPENDENTLY IN THE ROOM. NO REPORTED EVENTS ON TELE SINCE PLACEMENT.
[2019-09-29 20:58] LABS: CPK Creatine Kinase 76 U/L (26-193); Troponin I <0.015 ng/mL (0.000-0.040)
[2019-09-30 05:09] LABS: Hemoglobin 10.3 g/dL (11.5-16.0); Mean Corpuscular HGB 29.8 pg (26.0-34.0); Mean Corpuscular HGB Conc 33.2 g/dL (31.5-36.5); Mean Corpuscular Volume 90 fL (80-100); Mean Platelet Volume 10.4 fL (9.1-12.4); Platelet Count 186 K/mm3 (150-400); RDW Coefficient Variation 12.7 % (11.7-14.2); RDW Standard Deviation 41.5 fL (35.1-46.3); Red Blood Cell Count 3.46 M/mm3 (3.80-5.20); White Blood Cell Count 7.95 K/mm3 (4.00-11.30)
[2019-09-30 05:36] LABS: Alanine Aminotransfer (ALT/SGP 19 U/L (12-78); Albumin/Globulin Ratio 0.8 (0.8-1.8); Alk Phos 124 U/L (50-136); Anion Gap 7 mmol/L (6-16); Aspartate Aminotrans (AST/SGOT 13 U/L (12-37); Bilirubin, Total 0.3 mg/dL (0.1-1.0); Blood Urea Nitrogen 35 mg/dL (8-24); Bun/Creatinine Ratio 26.1 (12.0-20.0); CO2, Blood 25 mmol/L (21-32); Calcium, Blood 8.9 mg/dL (8.5-10.1); Chloride, Blood 104 mmol/L (98-108); Creatinine, Blood 1.34 mg/dL (0.40-1.00); Globulin, Blood 3.8 g/dL (2.2-4.0); Glomerular Filtration Rate 42 (60-); Glucose, Blood 222 mg/dL (70-99); Phosphorus, Blood 3.3 mg/dL (2.5-4.9); Sodium, Blood 136 mmol/L (136-145); Total Protein, Blood 6.8 g/dL (6.4-8.2)
--- NOTE | 2019-09-30 06:05 | NUR ---
SHIFT SUMMARY A/O, ABLE TO MAKE NEEDS KNOWN. COOPERATIVE WITH CARE. CALLS AND ANSWERS QUESTIONS APPROPRIATELY. NO C/O PAIN/DISCOMFORT. SISTER AT BEDSIDE. APPEARED TO REST MUCH OF NIGHT. HYPERTENSIVE THIS AM; WILL MEDICATE PER EMAR. NO OTHER ACUTE CHANGES NOTED THIS SHIFT. WCTM. BED IN LOWEST POSITION. CALL LIGHT AND BELONGINGS WITHIN REACH. REPORT TO ONCOMING RN.
--- NOTE | 2019-09-30 13:33 | NUR ---
Upon receiving an admit referral, I visit patient. I conduct a life review. Patient tells me about her family history her Jehovah'S Witness background. I learn from patient about her medical history and all that she has recovered from. Patient is very remarkable in her courage and outlook. I listen emapthically, reinforce helpful attitudes and practices, explore anabaptism beliefs and provide prayer. Patient responds well and shows signs of an elevated mood. I will continue to remain available to patient and family.
--- NOTE | 2019-09-30 19:35 | NUR ---
AFTER BEDSIDE REPORT WAS COMPLETED PT SPOUSE CAME INTO THE HALLWAY AND TOLD STAFF THAT THE PT IS HAVING TROBLE BREATHING AND IS SHAKING AND COLD. PT HAD GOTTEN UP AND WENT TO THE BATHROOM AND BECAME VERY SHORT OF BREATH. PT APPEARED TO BE ANXIOUS BREATHING FAST AND WHEEZY, HOWEVER SHE RECENTLY RECIEVED IV HYDRALIZINE FOR HTN. VITALS 170/115 RESP 24 O2 SATS 98%. CALLED RT TO GIVE A BREATHING Tx. NO PRN ANXIETY MEDICATION, HOWEVER PT TAKES SCHEDULED MEDS FOR HER ANXIETY. WHEN RT ARRIVED IN THE ROOM THE PT BECAME FIDGETTY AND GRABBED HER LEFT SHOULDER SAID MY SHOULDER AND ARM HURT PT WAS ABLE TO TELL STAFF THAT THE PAIN WAS 8/10. PT VERY TEARFUL BREATHING Tx SEEMED TO HELP A LITTLE. PT STATED THE PAIN IN HER SHOULDER HAS REDUCED TO A 3/10 NIGHT RN AWARE AND CAME TO THE BEDSIDE AT THAT TIME. UPDATED NIGHT PLUMBING ASSEMBLER INSTALLER LEXI WHO CALLED DR FOR ORDERS. PT MAY NEED EKG, TROPONIN, AND POSSIBLY TO HAVE TELE ORDERED AGAIN. PT SEEMS TO BE CALMING AT THIS TIME BREATHING STILL SEEMS A LITTLE LABORED.
--- NOTE | 2019-09-30 19:59 | NUR ---
SHIFT SUMMARY- PT ALERT AND ORIENTED AT THE BEDSIDE. REPORT COMPLETED WITH NIGHT RN KASIA. PT IS HAVING AN EPPISODE OF SOME SORT THAT SEEMS TO BE RESOLVING AT THIS TIME. SEE PREVIOUS NOTES FOR DETAILS. UNCLEAR IF IT IS CARDIAC, RESPIRATORY OR ANXIETY RELATED POSSIBLY A COMBINATION OF ALL. NIGHT RN MANAGING NIGHT CHARGE AWARE.
--- NOTE | 2019-10-01 05:57 | NUR ---
LATE ENTRY 1953 ON-CALL PHYSICIAN NOTIFIED OF PREVIOUS RN EXPERICE BY PATIENT SVCS MGR. PATIENT CONTINUES TO HAVE PAIN TO L SHOULDER; DENIES SOB OR CP AT THIS TIME. GIVEN NTG X1 PER ORDERS TO RULE OUT CARDIAC EVENT.
--- NOTE | 2019-10-01 05:58 | NUR ---
LATE ENTRY 2007 VS RE-CHECKED AFTER NTG. ORIGINALLY BP 195/60, HR 72. RE-CHECK: 170/67, 70.
--- NOTE | 2019-10-01 06:00 | NUR ---
LATE ENTRY 2034 PATIENT CONTINUES TO HAVE EPISODES OF SOB, PAIN TO L SHOULDER, TEARFULNESS, SHAKING AND JUST FEELING ILL. ON-CALL PHYSICIAN NOTIFIED BY WEBBING INSPECTORTA BIGGS. NEW ORDERS EKG, 325 ASA X1, XANAX X1, RESTART TELEMETRY. WCTM.
--- NOTE | 2019-10-01 06:02 | NUR ---
LATE ENTRY 2129 PATIENT STATED FEELING MUCH BETTER. NO LONGER HAVING ANY PAIN AND CONVERSING WITH FAMILY WHOM ARE AT BEDSIDE. EKG STATES NORMAL SINUS RHYTHM. TELEMETRY STATES SINUS STEFFANIE @ 56. WCTM.
--- NOTE | 2019-10-01 06:06 | NUR ---
SHIFT SUMMARY A/O, ABLE TO MAKE NEEDS KNOWN. COOPERATIVE WITH CARE. CALLS AND ANSWERS QUESTIONS APPROPRIATELY. NO FURTHER C/O CP OR SOB (SEE PREV RN NOTES). ABLE TO SLEEP MUCH OF NIGHT. @ BEDSIDE. VSS/AFEBRILE. CONTINUE WITH Q3H VS PER ORDERS. BED IN LOWEST POSITION. CALL LIGHT AND BELONGINGS WITHIN REACH. WCTM. REPORT TO ONCOMING RN.
[2019-10-01 09:28] LABS: Albumin, Blood 3.2 g/dL (3.4-5.0); Anion Gap 9 mmol/L (6-16); Blood Urea Nitrogen 45 mg/dL (8-24); Bun/Creatinine Ratio 31.7 (12.0-20.0); CO2, Blood 23 mmol/L (21-32); Calcium, Blood 8.8 mg/dL (8.5-10.1); Chloride, Blood 107 mmol/L (98-108); Creatinine, Blood 1.42 mg/dL (0.40-1.00); Glomerular Filtration Rate 39 (60-); Glucose, Blood 161 mg/dL (70-99); Phosphorus, Blood 4.9 mg/dL (2.5-4.9); Potassium, Blood 3.7 mmol/L (3.5-5.5); Sodium, Blood 139 mmol/L (136-145)
[2019-10-01] MEDS ORDERED: LOSARTAN POTASS50 MG PO (15:28)
[2019-10-01] MEDS ORDERED: PROAIR DIGIHAL90 MCG INH (15:30)
[2019-10-01] MEDS ORDERED: DELTASONE20 MG PO (15:31)
[2019-10-01] MEDS ORDERED: FLUT1DIS5 INH (15:31)
[2019-10-01] MEDS ORDERED: Clonazepam0.5 MG PO (15:34)
--- NOTE | 2019-10-01 17:36 | NUR ---
DISCHARGE INSTRUCTIONS COMPLETED AND DISCUSSED WITH PT AND EXPRESSING UNDERSTANDING. RT IN TO SEE PT WELL AND PROVIDED EXTRA RESP EDUCATION. TO CURB VIA W/C WITH .
== END 2019-10-01 16:50 | disposition home or self-care (01) ==
LOC: ER 02:46 → MEDS 06:25
PROVIDERS: Emergency Medicine; Internal Medicine; ADMIT Internal Medicine
DX: J44.1 Chronic obstructive pulmonary disease with (acute) exacerbation (principal); N17.9 Acute kidney failure, unspecified; I13.0 Hypertensive heart and chronic kidney disease with heart failure and stage 1 through stage 4 chronic kidney disease, or unspecified chronic kidney disease; E11.22 Type 2 diabetes mellitus with diabetic chronic kidney disease; N18.3 Chronic kidney disease, stage 3 (moderate); I50.32 Chronic diastolic (congestive) heart failure; D63.1 Anemia in chronic kidney disease; G47.33 Obstructive sleep apnea (adult) (pediatric); E78.5 Hyperlipidemia, unspecified; E11.40 Type 2 diabetes mellitus with diabetic neuropathy, unspecified; K21.9 Gastro-esophageal reflux disease without esophagitis; I25.10 Atherosclerotic heart disease of native coronary artery without angina pectoris; E66.01 Morbid (severe) obesity due to excess calories; Z68.39 Body mass index [BMI] 39.0-39.9, adult; Z95.1 Presence of aortocoronary bypass graft; Z95.5 Presence of coronary angioplasty implant and graft; Z86.73 Personal history of transient ischemic attack (TIA), and cerebral infarction without residual deficits; Z99.89 Dependence on other enabling machines and devices; Z88.2 Allergy status to sulfonamides; Z88.8 Allergy status to other drugs, medicaments and biological substances; Z79.02 Long term (current) use of antithrombotics/antiplatelets; Z79.52 Long term (current) use of systemic steroids; Z79.82 Long term (current) use of aspirin; Z79.84 Long term (current) use of oral hypoglycemic drugs; Z79.51 Long term (current) use of inhaled steroids; Z79.899 Other long term (current) drug therapy
CPT/HCPCS: 0099U; 36415; 36600; 71046; 80053; 80069; 82550; 82803; 82947; 83880; 84100; 84484; 85025; 85027; 93005; 93010; 93975; 94640; 94664; 94667; 94760; 94762; 96372; 96374; 96375; 96376; 98960; 99285-25; C9113; G0378; J0360; J1650; J2930; J7512

== ENCOUNTER 2021-02-01 17:46 | Observation (INO) | payer MEDICARE, OTHER ==
[~2021-02-01] VITALS: Ht 152.4 cm; Wt 105.4 kg
[~2021-02-01 17:46] MED LIST changes: +ACET500; +AMIL5 PO; +Aspirin EC81 MG PO; +CARV3.125 PO; -CLON.2 PO; +CLON.3 PO; +Clonazepam0.5 MG PO; +DELTASONE20 MG PO; +ESTROGEN; +FLUT1DIS5 INH; +GLIP5 PO; +Isosorbide Mono60 MG PO; +LOSARTAN POTASS50 MG PO; +MAGNESIUM OXID500 MG; +MAGNESIUM OXID500 MG PO; +MIRALAX17 GM PO; +Nitrostat0.3 MG; +Norco 5-325 Ta1 EACH; +OLMESARTAN MEDO20 MG; +POTASSIUM; +PROAIR DIGIHAL90 MCG INH; -SERT100 PO; +Zithromax250 MG PO
[2021-02-01] MEDS ORDERED: HYDCHL25 PO (18:19)
[2021-02-01] MEDS ORDERED: BREO ELLIPTA 11 EAC1 INH (18:19)
[2021-02-01] MEDS ORDERED: ESTEST.62T PO (18:19)
[2021-02-01] MEDS ORDERED: PANT40 PO (18:20)
[2021-02-01] MEDS ORDERED: OLME20 PO (18:20)
[2021-02-01 23:34] LABS: CPK Creatine Kinase 76 U/L (26-193); Troponin I <0.015 ng/mL (0.000-0.040)
[2021-02-02 00:17] LABS: Source, Urine Clean Catch
[2021-02-02 00:25] LABS: Bilirubin, Urine Neg (Neg); Blood, Urine Neg (Neg); Glucose Qualitative, Urine Neg (Neg); Ketones, Urine Neg (Neg); Leukocyte Esterase, Urine Neg (Neg); Nitrite, Urine Neg (Neg); Protein, Urine Neg (Neg); Urobilinogen, Urine NORM (Normal)
[2021-02-02 00:27] LABS: Appearance, Urine Clear (Clear); Color, Urine Yellow (P-Yellow)
[2021-02-02] MEDS ORDERED: TIOT18 INH (06:28)
[2021-02-02 07:22] LABS: BASOPHILS ABSOLUTE AUTO 0.03 K/mm3 (0.00-0.23); BASOPHILS PERCENT AUTO 1 % (0-2); EOSINOPHILS ABSOLUTE AUTO 0.27 K/mm3 (0.00-0.68); EOSINOPHILS PERCENT AUTO 6 % (0-6); Hematocrit 30.4 % (33.0-51.0); Hemoglobin 9.7 g/dL (11.5-16.0); IMMATURE GRAN ABSOLUTE AUTO 0.02 K/mm3 (0.00-0.10); IMMATURE GRAN PERCENT AUTO 0 % (0-1); LYMPHOCYTES ABSOLUTE AUTO 0.92 K/mm3 (0.84-5.20); LYMPHOCYTES PERCENT AUTO 21 % (21-46); MONOCYTES ABSOLUTE AUTO 0.39 K/mm3 (0.16-1.47); MONOCYTES PERCENT AUTO 9 % (4-13); Mean Corpuscular HGB Conc 31.9 g/dL (31.5-36.5); Mean Corpuscular Volume 88 fL (80-100); Mean Platelet Volume 10.4 fL (9.1-12.4); NEUTROPHILS ABSOLUTE AUTO 2.85 K/mm3 (1.96-9.15); NEUTROPHILS PERCENT AUTO 64 % (41-73); Platelet Count 209 K/mm3 (150-400); RDW Coefficient Variation 13.8 % (11.7-14.2); RDW Standard Deviation 43.7 fL (35.1-46.3); Red Blood Cell Count 3.46 M/mm3 (3.80-5.20); White Blood Cell Count 4.48 K/mm3 (4.00-11.30)
[2021-02-02 07:42] LABS: Alanine Aminotransfer (ALT/SGP 16 U/L (12-78); Albumin, Blood 3.2 g/dL (3.4-5.0); Albumin/Globulin Ratio 0.9 (0.8-1.8); Alk Phos 120 U/L (50-136); Anion Gap 5 mmol/L (6-16); Aspartate Aminotrans (AST/SGOT 13 U/L (12-37); Bilirubin, Total 0.3 mg/dL (0.1-1.0); Blood Urea Nitrogen 37 mg/dL (8-24); CO2, Blood 31 mmol/L (21-32); CPK Creatine Kinase 71 U/L (26-193); Calcium, Blood 8.8 mg/dL (8.5-10.1); Chloride, Blood 104 mmol/L (98-108); Creatinine, Blood 1.61 mg/dL (0.40-1.00); Globulin, Blood 3.5 g/dL (2.2-4.0); Glomerular Filtration Rate 34 (60-); Glucose, Blood 131 mg/dL (70-99); Potassium, Blood 3.9 mmol/L (3.5-5.5); Sodium, Blood 140 mmol/L (136-145); Total Protein, Blood 6.7 g/dL (6.4-8.2); Troponin I <0.015 ng/mL (0.000-0.040)
--- NOTE | 2021-02-02 14:00 | NUR ---
Echocardiogram using 9.0ml of agitated saline contrast performed.
--- NOTE | 2021-02-02 16:17 | NUR ---
AM ASSESSMENT I AGREE WITH THE SN DICKEY'S AM ASSEMNT EXCEPT THE PT DID REPORT SOME REDNESS AND SORENESS OF HER LEFT FOOT, PT WAS SOB AND WHEEZING WITH MINIMAL EXCERTION TO THE BATHROOM
--- NOTE | 2021-02-02 16:59 | NUR ---
PT IS A/OX4, SBA, CONTINENT, AND WILL CALL TO USE THE RESTROOM. PT IS ON CONTINUOUS BIOX SATS RANGING FROM 90 TO 92%, ON RA WHILE UP IN HER CHAIR. . PT HAS SOB AND WHEEZING PRESENT WITH EXERTION. PT IS ON TELE, DOES NOT COMPLAIN OF ANY CHEST PAIN. PT RECEIVED A CT TO RULE OUT A PE, AND HAD AN ECHO TODAY WELL. PT IS ON A ADA DIET, ACHS, RECEIVES COVERAGE INDICATED PER SS. PT'S SPOUSE IS WITH HER CURRENTLY AT BEDSIDE.
[2021-02-03 04:37] LABS: BASOPHILS ABSOLUTE AUTO 0.01 K/mm3 (0.00-0.23); BASOPHILS PERCENT AUTO 0 % (0-2); EOSINOPHILS ABSOLUTE AUTO 0.25 K/mm3 (0.00-0.68); EOSINOPHILS PERCENT AUTO 5 % (0-6); Hematocrit 29.5 % (33.0-51.0); Hemoglobin 9.5 g/dL (11.5-16.0); IMMATURE GRAN ABSOLUTE AUTO 0.02 K/mm3 (0.00-0.10); IMMATURE GRAN PERCENT AUTO 0 % (0-1); LYMPHOCYTES ABSOLUTE AUTO 0.88 K/mm3 (0.84-5.20); LYMPHOCYTES PERCENT AUTO 18 % (21-46); MONOCYTES ABSOLUTE AUTO 0.36 K/mm3 (0.16-1.47); MONOCYTES PERCENT AUTO 7 % (4-13); Mean Corpuscular HGB 27.6 pg (26.0-34.0); Mean Corpuscular HGB Conc 32.2 g/dL (31.5-36.5); Mean Corpuscular Volume 86 fL (80-100); Mean Platelet Volume 10.4 fL (9.1-12.4); NEUTROPHILS ABSOLUTE AUTO 3.47 K/mm3 (1.96-9.15); NEUTROPHILS PERCENT AUTO 70 % (41-73); Platelet Count 203 K/mm3 (150-400); RDW Coefficient Variation 13.8 % (11.7-14.2); RDW Standard Deviation 42.8 fL (35.1-46.3); Red Blood Cell Count 3.44 M/mm3 (3.80-5.20); White Blood Cell Count 4.99 K/mm3 (4.00-11.30)
[2021-02-03 04:53] LABS: Bun/Creatinine Ratio 21.1 (12.0-20.0); Calcium, Blood 8.6 mg/dL (8.5-10.1); Creatinine, Blood 1.71 mg/dL (0.40-1.00); Potassium, Blood 3.6 mmol/L (3.5-5.5)
--- NOTE | 2021-02-03 05:32 | NUR ---
SHIFT SUMMARY PT IS A 70 Y/O FEMALE, ADMITTED FOR PERIPHERAL EDEMA AND DYSPNEA. PT IS A&O X 4, SBA TO THE BATHROOM. PT DID REPORT DYSPNEA WITH EXERTION, WITH SOME POSITIONAL DYSPNEA AND DESATTTING TO THE MID 50S. PT ON RA WHILE AWAKE, AND CPAP WITH 2L O2 BLEED IN WHILE SLEEPING. NO COMPLAINTS OF ACUTE NAUSEA OR SOB. PT BP WAS ELEVATED AT START OF SHIFT AT 211/69 BUT CAME DOWN TO 123/64 AFTER RECEIVING HER SCHEDULED HS BLOOD PRESSURE MEDICATION. VITAL SIGNS OTHERWISE STABLE. NO ACUTE CHANGES IN PT CONDITION NOTED DURING THE NIGHT. WILL CONTINUE TO MONITOR AND TREAT PER EMAR UNTIL HAND OFF TO DAY SHIFT RN.
--- NOTE | 2021-02-03 18:21 | NUR ---
PT IS A/O X4, SBA, SATS HAVE BEEN RANGING FROM 90 TO 94%, PT IS ON CONTINUOUS BIOX ON RA. PT'S SOB AND WHEEZING HAS IMPROVED SOME SINCE YESTERDAY. PT DENIES ANY CHEST PAIN CURRENTLY. PT'S BP IS STILL ELEVATED TODAY. THE MD SPOKE WITH THE PT TODAY ABOUT CHANGING SOME MEDICATIONS. IF THE PT'S BP IS MORE CONTROLLED BY TOMORROW THEY MAY BE DC'D HOME WITH SPOUSE.
--- NOTE | 2021-02-03 19:02 | NUR ---
SN ASSESMENT I AGREE WITH THE STUDENTS AM ASSESSMENT AND DOCUMENTATION TODAY
[2021-02-04 05:21] LABS: Bun/Creatinine Ratio 23.1 (12.0-20.0); Calcium, Blood 8.6 mg/dL (8.5-10.1); Creatinine, Blood 1.47 mg/dL (0.40-1.00); Potassium, Blood 3.1 mmol/L (3.5-5.5)
--- NOTE | 2021-02-04 05:54 | NUR ---
SHIFT SUMMARY PT IS A 70 Y/O FEMALE, ADMITTED FOR PERIPHERAL EDEMA AND DYSPNEA. SHE IS A&O X 4, SBA TO THE BATHROOM. PT WAS ELEVATED DURING THE NIGHT, 200/61 AT HS, WHICH CAME DOWN TO 178/70 AFTER HS BP MEDS. THIS AM, BP WAS 199/83, AND CAME DOWN TO 102/59 AFTER 10MG IV HYDRALAZINE. ALL OTHER VITAL STABLE. PT IS ON CPAP WITH 2L O2 BLEED IN WHILE ASLEEP. PT WAS MEDICATED THIS AM FOR BACK PAIN WITH PRN TYLENOL, AND REPORTED DYSPNEA WITH EXERTION AND POSITIONAL. NO C/O NAUSEA. PT SLEPT WELL THROUGH THE NIGHT. NO ACUTE CHANGES IN PT CONDITION NOTED. WILL CONTINUE TO MONITOR AND TREAT PER EMAR UNTIL HAND OFF TO DAY SHIFT RN.
[2021-02-04] MEDS ORDERED: SPIR25 PO (12:39)
--- NOTE | 2021-02-04 16:33 | NUR ---
PATIENT DISCHARGE: PATIENT DISCHARGED TO HOME THIS SHIFT. MEDICATION RECONCILIATION COMPLETED; MED LIST FAXED TO [facility]. DISCHARGE EDUCATION COMPLETED WITH PATIENT AND FAMILY. PATIENT TRANSPORTED TO EXIT BY [facility] WITH WHEELCHAIR AT 1518. PATIENT DEPARTED [facility] VIA PRIVATE AUTO.
[2021-03-30] MEDS ORDERED: AMIL5 PO (17:18)
[2021-03-30] MEDS ORDERED: BREO ELLIPTA 11 EAC1 INH (17:20)
[2021-03-30] MEDS ORDERED: GLIP5 PO ×2 (17:23)
[2021-03-30] MEDS ORDERED: PANT20 PO (17:24)
[2021-03-30] MEDS ORDERED: ONDA4 PO (17:24)
[2021-03-30] MEDS ORDERED: POTA10T PO (17:25)
[2021-03-30] MEDS ORDERED: Zoloft50 MG PO (17:26)
== END 2021-02-04 15:18 | disposition home or self-care (01) ==
LOC: ER 17:46 → MEDS 20:06 → ER 20:06 → MEDS 20:56 → ENPENDDIS 02-04 12:31 → MEDS 02-04 15:18
PROVIDERS: Internal Medicine; ADMIT Internal Medicine
DX: I27.20 Pulmonary hypertension, unspecified (principal); I13.10 Hypertensive heart and chronic kidney disease without heart failure, with stage 1 through stage 4 chronic kidney disease, or unspecified chronic kidney disease; E11.22 Type 2 diabetes mellitus with diabetic chronic kidney disease; N17.9 Acute kidney failure, unspecified; N18.30 Chronic kidney disease, stage 3 unspecified; I27.81 Cor pulmonale (chronic); G47.33 Obstructive sleep apnea (adult) (pediatric); J44.9 Chronic obstructive pulmonary disease, unspecified; E66.01 Morbid (severe) obesity due to excess calories; I25.10 Atherosclerotic heart disease of native coronary artery without angina pectoris; M10.9 Gout, unspecified; F32.9 Major depressive disorder, single episode, unspecified; F41.9 Anxiety disorder, unspecified; Z79.82 Long term (current) use of aspirin; Z95.1 Presence of aortocoronary bypass graft; Z86.73 Personal history of transient ischemic attack (TIA), and cerebral infarction without residual deficits; Z68.41 Body mass index [BMI] 40.0-44.9, adult
CPT/HCPCS: 36415; 71260; 80048; 80053; 81003; 82550; 82947; 84484; 84550; 85025; 85379; 93306; 94640; 94660; 94762; 96372; 96374; 96375; 96376; 99285-25; A9270; G0378; J0360; J1650; J1940; J2405; J7120; Q9967

== ENCOUNTER 2021-05-08 06:26 | Day surgery (SDC) | payer MEDICARE, OTHER ==
[~2021-05-08] VITALS: Ht 152.4 cm; Wt 100.0 kg
[~2021-05-08 06:26] MED LIST changes: +BREO ELLIPTA 11 EAC1 INH; +ESTEST.62T PO; +OLME20 PO; +ONDA4 PO; +PANT40 PO; +SPIR25 PO; +Zoloft50 MG PO
--- NOTE | 2021-05-08 10:13 | NUR ---
HEMATOMA R GROIN FIRM, PRESSURE APPLIED AND SOFTENED. PT HAVING SPASMS IN R UPPER LEG AND ALSO C/O DISCOMFORT. FENTANYL 50 MCG GIVEN PER ORDER IV. WILL CONTINUE TO MONITOR.
--- NOTE | 2021-05-08 11:26 | NUR ---
PT SITTING UP ON GURNEY. BILAT GROIN SITES STABLE. PT HAVING LEG SPASMS UPPER LEG RIGHT SIDE, BUT HAVE IMRPOVED WITH SITTING UP. EATING AT THIS TIME. PT B/P ELEVATED 209/88, NOTIFIED AND ORDERS RECEIVED TO GIVE 20 MG IV HYDRALAZINE.
--- NOTE | 2021-05-08 11:53 | NUR ---
PT AUDIBLY WHEEZING AND SHAKING. JOSE ALBERTO HEBERER GOING AT THIS TIME FOR CHILLS AND NICKY TREATMENT GIVEN FOR WHEEZING.
--- NOTE | 2021-05-08 12:23 | NUR ---
PT UP TO BATHROOM, BECAME NAUSEATED AND THREW UP 200 CC. ZOFRAN 4 MG GIVEN IVP PER ORDER. BILAT GROIN SITES STABLE.
--- NOTE | 2021-05-08 12:46 | NUR ---
PT STATES SHE IS FEELING BETTER. IS SITTING UP IN BED EATING SOME CHEESE AND CRACKERS AT THIS TIME, WILL CONTINUE TO MONITOR.
--- NOTE | 2021-05-08 13:10 | NUR ---
AMBULATED TO BATHROOM. DRESSING FOR DISCHARGE.DISCHARGE INSTRUCTIONS GIVEN WITH VERBAL AND WRITTEN UNDERSTANDING.
--- NOTE | 2021-05-08 13:15 | NUR ---
IV REMOVED INTACT. 2X2, COBAN AND MANUAL PRESSURE HELD BY LILIAN ZURITA RN.
--- NOTE | 2021-05-08 13:35 | NUR ---
DISCHARGED HOME VIA WHEELCHAIR. DRIVING.
[2021-05-09] MEDS ORDERED: HYDR1TAB94 PO (13:25)
== END 2021-05-08 13:35 | disposition home or self-care (01) ==
LOC: MHTC 06:26
DX: E11.51 Type 2 diabetes mellitus with diabetic peripheral angiopathy without gangrene (principal); I70.223 Atherosclerosis of native arteries of extremities with rest pain, bilateral legs; E11.22 Type 2 diabetes mellitus with diabetic chronic kidney disease; I13.0 Hypertensive heart and chronic kidney disease with heart failure and stage 1 through stage 4 chronic kidney disease, or unspecified chronic kidney disease; N18.9 Chronic kidney disease, unspecified; I50.9 Heart failure, unspecified; J44.9 Chronic obstructive pulmonary disease, unspecified; K21.9 Gastro-esophageal reflux disease without esophagitis; I25.2 Old myocardial infarction; Z86.73 Personal history of transient ischemic attack (TIA), and cerebral infarction without residual deficits; Z95.1 Presence of aortocoronary bypass graft; Z87.891 Personal history of nicotine dependence; Z88.8 Allergy status to other drugs, medicaments and biological substances; Z88.2 Allergy status to sulfonamides; Z79.82 Long term (current) use of aspirin; Z79.02 Long term (current) use of antithrombotics/antiplatelets; Z79.84 Long term (current) use of oral hypoglycemic drugs
CPT/HCPCS: 37221; 75625; 75716; 75774; 76937; 82947; 99152; 99153; C1760; C1769; C1876; C1887; C1894; J0360; J1644; J2250; J2405; J3010; J7030; J7050; Q9967

== ENCOUNTER 2021-05-09 12:15 | Emergency (ER) | payer MEDICARE, OTHER ==
[~2021-05-09] VITALS: Ht 152.4 cm; Wt 101.6 kg
[2021-05-09] MEDS ORDERED: HYDR1TAB94 PO (13:25)
== END 2021-05-09 14:20 | disposition home or self-care (01) ==
LOC: ER 12:15
DX: R10.30 Lower abdominal pain, unspecified (principal); G89.18 Other acute postprocedural pain; I10 Essential (primary) hypertension; E78.5 Hyperlipidemia, unspecified; J44.9 Chronic obstructive pulmonary disease, unspecified; I25.10 Atherosclerotic heart disease of native coronary artery without angina pectoris; E11.40 Type 2 diabetes mellitus with diabetic neuropathy, unspecified; K21.9 Gastro-esophageal reflux disease without esophagitis; I25.2 Old myocardial infarction; Z95.1 Presence of aortocoronary bypass graft; Z95.5 Presence of coronary angioplasty implant and graft; Z79.82 Long term (current) use of aspirin; Z79.899 Other long term (current) drug therapy; Z79.02 Long term (current) use of antithrombotics/antiplatelets
CPT/HCPCS: 93005; 93010; 93926; 99284-25; A9270

== ENCOUNTER 2021-07-08 10:28 | Day surgery (SDC) | payer MEDICARE, OTHER ==
[~2021-07-08] VITALS: Ht 152.4 cm; Wt 102.5 kg
--- NOTE | 2021-07-08 14:32 | NUR ---
PATIENT RETURNED FROM THE [facility] AT 1400. PLACED ON THE MONITOR AND CALL LIGHT IN REACH. HOB UP 10 DEGREES. RIGHT GROIN AND LEFT PEDAL ACCESS CHECKED. PATIENT IS IN AND OUT OF SLEEP. MOANING AND GROANING OF PAIN TO THE RIGHT GROIN. ANGIOSEAL NOTED AND SITE CDI, NO HEMATOMA. VVS. SIDE RAIL UP X 2. NOTIFIED OF PROCEDURE COMPLETION AND POTENTIAL DISCHARGE TIME.
--- NOTE | 2021-07-08 16:09 | NUR ---
PATIENT ALLOWED TO SIT UP IN THE BED. LUNCH TRAY SERVED. VVS. MILD TENDERNESS AT THE RIGHT GROIN SITE AND THE LEFT FOOT. PATEINT DID NOT TAKE HER MEDICATIONS THIS MORNING SO FEELING VERY ANXIOUS, WANTING TO GET OUT OF THE BED FREQUENTLY. ENCOURAGED PATIENT TO STAY ON BEDREST UNTIL 1630 THEN CAN GET UP. CONTINUE TO MONITOR. CALL LIGHT IN REACH.
--- NOTE | 2021-07-08 16:28 | NUR ---
PATIENT ALLOWED TO GET UP OOB AND SHE WALKED TO THE RESTROOM INDEPENDENTLY. REVIEWED DISCHARGE INSTRUCTIONS. COPIES MADE FOR THE CHART AND ORIGINALS GIVEN TO THE PATIENT.
--- NOTE | 2021-07-08 17:09 | NUR ---
PATIENT DISCAHRGED HOME WITH MORNING NEWS ANCHOR. PATIENT VERBALIZED INSTRUCTIONS AND FOLLOW UP APPOINTMENT.
== END 2021-07-08 17:00 | disposition home or self-care (01) ==
LOC: MHTC 10:28
DX: I70.293 Other atherosclerosis of native arteries of extremities, bilateral legs (principal); I12.9 Hypertensive chronic kidney disease with stage 1 through stage 4 chronic kidney disease, or unspecified chronic kidney disease; I50.9 Heart failure, unspecified; N18.9 Chronic kidney disease, unspecified; E11.22 Type 2 diabetes mellitus with diabetic chronic kidney disease; J44.9 Chronic obstructive pulmonary disease, unspecified; E66.9 Obesity, unspecified; Z68.41 Body mass index [BMI] 40.0-44.9, adult; I25.2 Old myocardial infarction; Z86.73 Personal history of transient ischemic attack (TIA), and cerebral infarction without residual deficits; Z88.2 Allergy status to sulfonamides; Z88.8 Allergy status to other drugs, medicaments and biological substances; Z79.899 Other long term (current) drug therapy; Z79.84 Long term (current) use of oral hypoglycemic drugs
CPT/HCPCS: 36252; 75716; 75774; 76937; 99152; 99153; C1725; C1760; C1769; C1887; C1894; C2623; C9764; J0360; J1644; J2250; J2405; J3010; J7030; J7050; Q9967

== ENCOUNTER 2021-08-22 12:19 | Emergency (ER) | payer MEDICARE, OTHER ==
[~2021-08-22] VITALS: Ht 152.4 cm; Wt 93.9 kg
[2021-08-22 14:12] LABS: BASOPHILS ABSOLUTE AUTO 0.04 K/mm3 (0.00-0.23); BASOPHILS PERCENT AUTO 1 % (0-2); EOSINOPHILS ABSOLUTE AUTO 0.41 K/mm3 (0.00-0.68); EOSINOPHILS PERCENT AUTO 6 % (0-6); Hemoglobin 10.8 g/dL (11.5-16.0); IMMATURE GRAN ABSOLUTE AUTO 0.02 K/mm3 (0.00-0.10); IMMATURE GRAN PERCENT AUTO 0 % (0-1); LYMPHOCYTES ABSOLUTE AUTO 0.76 K/mm3 (0.84-5.20); LYMPHOCYTES PERCENT AUTO 11 % (21-46); MONOCYTES ABSOLUTE AUTO 0.55 K/mm3 (0.16-1.47); MONOCYTES PERCENT AUTO 8 % (4-13); Mean Corpuscular HGB 28.7 pg (26.0-34.0); Mean Corpuscular HGB Conc 32.7 g/dL (31.5-36.5); Mean Corpuscular Volume 88 fL (80-100); Mean Platelet Volume 11.1 fL (9.1-12.4); NEUTROPHILS ABSOLUTE AUTO 5.35 K/mm3 (1.96-9.15); NEUTROPHILS PERCENT AUTO 75 % (41-73); Platelet Count 221 K/mm3 (150-400); RDW Coefficient Variation 12.9 % (11.7-14.2); RDW Standard Deviation 41.1 fL (35.1-46.3); Red Blood Cell Count 3.76 M/mm3 (3.80-5.20); White Blood Cell Count 7.13 K/mm3 (4.00-11.30)
[2021-08-22 14:32] LABS: Albumin, Blood 3.3 g/dL (3.4-5.0); Albumin/Globulin Ratio 0.8 (0.8-1.8); Bilirubin, Total 0.4 mg/dL (0.1-1.0); Bun/Creatinine Ratio 35.3 (12.0-20.0); Calcium, Blood 9.4 mg/dL (8.5-10.1); Creatinine, Blood 1.56 mg/dL (0.40-1.00); Globulin, Blood 4.1 g/dL (2.2-4.0); Potassium, Blood 4.1 mmol/L (3.5-5.5); Total Protein, Blood 7.4 g/dL (6.4-8.2)
== END 2021-08-22 18:05 | disposition home or self-care (01) ==
LOC: ER 12:19
PROVIDERS: Physician Assistant
DX: R19.7 Diarrhea, unspecified (principal); R10.9 Unspecified abdominal pain; I77.89 Other specified disorders of arteries and arterioles; J44.9 Chronic obstructive pulmonary disease, unspecified; I10 Essential (primary) hypertension; E78.5 Hyperlipidemia, unspecified; I25.10 Atherosclerotic heart disease of native coronary artery without angina pectoris; E11.40 Type 2 diabetes mellitus with diabetic neuropathy, unspecified; K21.9 Gastro-esophageal reflux disease without esophagitis; I25.2 Old myocardial infarction; Z86.73 Personal history of transient ischemic attack (TIA), and cerebral infarction without residual deficits; Z88.2 Allergy status to sulfonamides; Z88.8 Allergy status to other drugs, medicaments and biological substances; Z79.899 Other long term (current) drug therapy; Z79.82 Long term (current) use of aspirin
CPT/HCPCS: 36415; 80053; 83605; 83690; 85025; 93005; 93010; 96374; 99284-25; J2405

== ENCOUNTER → 2021-09-16 | Outpatient (CLI) | payer MEDICARE, OTHER ==
[~2021-09-16] MED LIST changes: +ALBU2.5V5; +STIOLTO RESPIMAT4 G1
[2021-09-18 09:37] LABS: Stool Occult Bld Immuno 1 Negative (NEGATIVE)
== END | disposition home or self-care (01) ==
LOC: LAB SHORT 15:15
PROVIDERS: Internal Medicine Gastroenterology
DX: D64.9 Anemia, unspecified (principal)
CPT/HCPCS: 82274

== ENCOUNTER 2021-11-18 10:17 | Observation (INO) | payer MEDICARE, OTHER ==
[~2021-11-18] VITALS: Ht 152.4 cm; Wt 96.0 kg
[~2021-11-18 10:17] MED LIST changes: +CATAPRES0.2 M1 PO; -CLON.3 PO; -DOXA2 PO; +DOXA4 PO
--- NOTE | 2021-11-18 17:48 | NUR ---
DR BRAUN HERE TO SPEAK TO PATIENT ABOUT HOSPITAL ADMISSION.
--- NOTE | 2021-11-18 18:12 | NUR ---
FULL HANDOFF REPORT GIVEN TO [facility] PCU. PO CLONIDINE GIVEN PRIOR TO TRANSFER. PT TO PCU WITH MONITOR. ALL MEDICATIONS REVIEWED. NO FURTHER QUESTIONS R GROIN SITE STABLE.
[2021-11-18 19:09] LABS: BASOPHILS ABSOLUTE AUTO 0.03 K/mm3 (0.00-0.23); BASOPHILS PERCENT AUTO 0 % (0-2); EOSINOPHILS ABSOLUTE AUTO 0.14 K/mm3 (0.00-0.68); EOSINOPHILS PERCENT AUTO 2 % (0-6); Hematocrit 36.1 % (33.0-51.0); Hemoglobin 11.7 g/dL (11.5-16.0); IMMATURE GRAN ABSOLUTE AUTO 0.07 K/mm3 (0.00-0.10); IMMATURE GRAN PERCENT AUTO 1 % (0-1); LYMPHOCYTES ABSOLUTE AUTO 0.49 K/mm3 (0.84-5.20); LYMPHOCYTES PERCENT AUTO 7 % (21-46); MONOCYTES ABSOLUTE AUTO 0.46 K/mm3 (0.16-1.47); MONOCYTES PERCENT AUTO 6 % (4-13); Mean Corpuscular HGB 29.2 pg (26.0-34.0); Mean Corpuscular HGB Conc 32.4 g/dL (31.5-36.5); Mean Corpuscular Volume 90 fL (80-100); Mean Platelet Volume 10.8 fL (9.1-12.4); NEUTROPHILS ABSOLUTE AUTO 6.07 K/mm3 (1.96-9.15); NEUTROPHILS PERCENT AUTO 84 % (41-73); Platelet Count 164 K/mm3 (150-400); RDW Coefficient Variation 15.5 % (11.7-14.2); RDW Standard Deviation 51.2 fL (35.1-46.3); Red Blood Cell Count 4.01 M/mm3 (3.80-5.20); White Blood Cell Count 7.26 K/mm3 (4.00-11.30)
[2021-11-18 19:42] LABS: Bun/Creatinine Ratio 23.6 (12.0-20.0); Creatinine, Blood 1.27 mg/dL (0.40-1.00); Potassium, Blood 3.9 mmol/L (3.5-5.5)
[2021-11-19 04:40] LABS: BASOPHILS ABSOLUTE AUTO 0.02 K/mm3 (0.00-0.23); BASOPHILS PERCENT AUTO 0 % (0-2); EOSINOPHILS ABSOLUTE AUTO 0.24 K/mm3 (0.00-0.68); EOSINOPHILS PERCENT AUTO 4 % (0-6); Hematocrit 34.8 % (33.0-51.0); IMMATURE GRAN ABSOLUTE AUTO 0.04 K/mm3 (0.00-0.10); IMMATURE GRAN PERCENT AUTO 1 % (0-1); LYMPHOCYTES ABSOLUTE AUTO 0.39 K/mm3 (0.84-5.20); LYMPHOCYTES PERCENT AUTO 6 % (21-46); MONOCYTES ABSOLUTE AUTO 0.45 K/mm3 (0.16-1.47); MONOCYTES PERCENT AUTO 7 % (4-13); Mean Corpuscular HGB 28.4 pg (26.0-34.0); Mean Corpuscular HGB Conc 31.6 g/dL (31.5-36.5); Mean Corpuscular Volume 90 fL (80-100); Mean Platelet Volume 10.7 fL (9.1-12.4); NEUTROPHILS ABSOLUTE AUTO 4.92 K/mm3 (1.96-9.15); NEUTROPHILS PERCENT AUTO 81 % (41-73); Platelet Count 155 K/mm3 (150-400); RDW Coefficient Variation 15.8 % (11.7-14.2); RDW Standard Deviation 51.8 fL (35.1-46.3); Red Blood Cell Count 3.88 M/mm3 (3.80-5.20); White Blood Cell Count 6.06 K/mm3 (4.00-11.30)
[2021-11-19 04:54] LABS: Albumin/Globulin Ratio 0.8 (0.8-1.8); Bilirubin, Total 0.5 mg/dL (0.1-1.0); Bun/Creatinine Ratio 23.8 (12.0-20.0); Calcium, Blood 8.5 mg/dL (8.5-10.1); Creatinine, Blood 1.3 mg/dL (0.40-1.00); Globulin, Blood 3.6 g/dL (2.2-4.0); Potassium, Blood 4.1 mmol/L (3.5-5.5); Total Protein, Blood 6.6 g/dL (6.4-8.2)
--- NOTE | 2021-11-19 06:12 | NUR ---
shift summary pt rested well through the night. alert and oriented, able to make needs known. cooperative with plan of care. sats >95% on 2lnc. tele reads nsr/sb. no c/o chest pain. no c/o other pain. sba to bathroom. r groin site c/d/i. vss. plans for echo this am. call light within reach, bed in lowerst position. will continue to monitor.
[2021-11-19] MEDS ORDERED: LOSA50 PO (09:55)
--- NOTE | 2021-11-19 11:34 | NUR ---
UPDATE: ASSUMED CARE OF PT THIS AM AFTER RECEIVING REPORT FROM TA CARVAJAL. PT CONTINUES A&O, COOPERATIVE WITH CARE. O2 FLOW HAS BEEN TITRATED FROM 2 TO 1 L/MIN VIA NC, PT MAINTAINING O2 SATS >92%. SR CONTINUES ON MONITOR. THIS AM, PT BP ELEVATED, WAS GIVEN HER MORNING MEDICATIONS AND SWALLOWED THEM WITH WATER, THEN HAD IMMEDIATE EMESIS WITH WHOLE PILLS COMING BACK UP. PT EXPRESSED THAT SHE THOUGHT IT WAS BECAUSE SHE HADN'T EATEN FOR QUITE A WHILE. PT MEDICATED W/ZOFRAN, PROVIDED W/BREAKFAST TRAY, THEN MEDICATED WITH MEDS INTENDED TO DECREASE BP WITH PT ABLE TO KEEP THOSE PILLS DOWN. AT THIS TIME, PT BP HAS DECREASED TO APPROPRIATE RANGE BUT NOW HAS ELEVATED TEMP. PT ALREADY MEDICATED W/TYLENOL FOR R HIP ACHE, EXTRA BLANKETS TAKEN OFF BED AND ROOM TEMP ADJUSTED. R HIP SITE CONTINUES WNL. WILL CONTINUE TO MONITOR AND TREAT ACCORDINGLY UNTIL CHANGE OF SHIFT.
--- NOTE | 2021-11-19 14:56 | NUR ---
DISCHARGE: PT HAS BEEN CLEARED FOR DISCHARGE. IV ACCESS DC'D WNL. PT AND SPOUSE PROVIDED WITH DC PAPERWORK AND INSTRUCTIONS, ALL QUESTIONS HAVE BEEN ANSWERED. PT ESCORTED FROM UNIT VIA W/C IN NAD.
== END 2021-11-19 14:55 | disposition home or self-care (01) ==
LOC: MHTC 10:17 → PCU 18:05 → MHTC 18:21 → PCU 11-19 14:55
PROVIDERS: Family Medicine; ADMIT Internal Medicine
DX: I16.0 Hypertensive urgency (principal); I13.0 Hypertensive heart and chronic kidney disease with heart failure and stage 1 through stage 4 chronic kidney disease, or unspecified chronic kidney disease; I50.30 Unspecified diastolic (congestive) heart failure; K59.09 Other constipation; N18.30 Chronic kidney disease, stage 3 unspecified; J44.9 Chronic obstructive pulmonary disease, unspecified; F32.A Depression, unspecified; E11.22 Type 2 diabetes mellitus with diabetic chronic kidney disease; K21.9 Gastro-esophageal reflux disease without esophagitis; E11.40 Type 2 diabetes mellitus with diabetic neuropathy, unspecified; I08.3 Combined rheumatic disorders of mitral, aortic and tricuspid valves; I70.1 Atherosclerosis of renal artery; I15.0 Renovascular hypertension; I25.10 Atherosclerotic heart disease of native coronary artery without angina pectoris; E11.51 Type 2 diabetes mellitus with diabetic peripheral angiopathy without gangrene; R00.1 Bradycardia, unspecified; E66.01 Morbid (severe) obesity due to excess calories; G47.33 Obstructive sleep apnea (adult) (pediatric); Z95.1 Presence of aortocoronary bypass graft; Z88.2 Allergy status to sulfonamides; Z88.8 Allergy status to other drugs, medicaments and biological substances; Z87.891 Personal history of nicotine dependence
CPT/HCPCS: 36415; 76937; 80048; 80053; 82947; 85025; 93005; 93010; 93306; 99152; 99153; A9270; C1725; C1760; C1769; C1876; C1887; C1894; C9113; J0360; J1644; J1650; J2060; J2250; J3010; J7030; J7050; Q9967

== ENCOUNTER 2021-12-17 20:01 | Inpatient (IN) | payer MEDICARE, OTHER ==
[~2021-12-17] VITALS: Ht 152.4 cm; Wt 106.9 kg
[2021-12-17 20:43] LABS: BASOPHILS ABSOLUTE AUTO 0.01 K/mm3 (0.00-0.23); BASOPHILS PERCENT AUTO 0 % (0-2); EOSINOPHILS ABSOLUTE AUTO 0.13 K/mm3 (0.00-0.68); EOSINOPHILS PERCENT AUTO 2 % (0-6); Hematocrit 31.7 % (33.0-51.0); Hemoglobin 10.4 g/dL (11.5-16.0); IMMATURE GRAN ABSOLUTE AUTO 0.06 K/mm3 (0.00-0.10); IMMATURE GRAN PERCENT AUTO 1 % (0-1); LYMPHOCYTES ABSOLUTE AUTO 0.47 K/mm3 (0.84-5.20); LYMPHOCYTES PERCENT AUTO 7 % (21-46); MONOCYTES ABSOLUTE AUTO 0.49 K/mm3 (0.16-1.47); MONOCYTES PERCENT AUTO 7 % (4-13); Mean Corpuscular HGB 29.2 pg (26.0-34.0); Mean Corpuscular HGB Conc 32.8 g/dL (31.5-36.5); Mean Corpuscular Volume 89 fL (80-100); Mean Platelet Volume 10.4 fL (9.1-12.4); NEUTROPHILS ABSOLUTE AUTO 6.03 K/mm3 (1.96-9.15); NEUTROPHILS PERCENT AUTO 84 % (41-73); Platelet Count 204 K/mm3 (150-400); RDW Coefficient Variation 15.3 % (11.7-14.2); RDW Standard Deviation 50.1 fL (35.1-46.3); Red Blood Cell Count 3.56 M/mm3 (3.80-5.20); White Blood Cell Count 7.19 K/mm3 (4.00-11.30)
[2021-12-17] MEDS ORDERED: METO25ER PO (20:46)
[2021-12-17] MEDS ORDERED: ALDACTONE25 MG PO (20:48)
[2021-12-17] MEDS ORDERED: ALBU2.5V5 INH (20:50)
[2021-12-17 20:56] LABS: Albumin, Blood 3.2 g/dL (3.4-5.0); Albumin/Globulin Ratio 0.9 (0.8-1.8); Bilirubin, Total 0.4 mg/dL (0.1-1.0); Bun/Creatinine Ratio 31.6 (12.0-20.0); Calcium, Blood 8.5 mg/dL (8.5-10.1); Creatinine, Blood 1.33 mg/dL (0.40-1.00); Globulin, Blood 3.5 g/dL (2.2-4.0); Potassium, Blood 3.9 mmol/L (3.5-5.5); Total Protein, Blood 6.7 g/dL (6.4-8.2)
[2021-12-18 05:43] LABS: BASOPHILS ABSOLUTE AUTO 0.01 K/mm3 (0.00-0.23); BASOPHILS PERCENT AUTO 0 % (0-2); EOSINOPHILS ABSOLUTE AUTO 0.01 K/mm3 (0.00-0.68); EOSINOPHILS PERCENT AUTO 0 % (0-6); Hematocrit 33.4 % (33.0-51.0); Hemoglobin 11.1 g/dL (11.5-16.0); IMMATURE GRAN ABSOLUTE AUTO 0.04 K/mm3 (0.00-0.10); IMMATURE GRAN PERCENT AUTO 1 % (0-1); LYMPHOCYTES ABSOLUTE AUTO 0.24 K/mm3 (0.84-5.20); LYMPHOCYTES PERCENT AUTO 4 % (21-46); MONOCYTES ABSOLUTE AUTO 0.13 K/mm3 (0.16-1.47); MONOCYTES PERCENT AUTO 2 % (4-13); Mean Corpuscular HGB Conc 33.2 g/dL (31.5-36.5); Mean Corpuscular Volume 87 fL (80-100); Mean Platelet Volume 10.2 fL (9.1-12.4); NEUTROPHILS ABSOLUTE AUTO 6.49 K/mm3 (1.96-9.15); NEUTROPHILS PERCENT AUTO 94 % (41-73); Platelet Count 195 K/mm3 (150-400); RDW Coefficient Variation 15.4 % (11.7-14.2); Red Blood Cell Count 3.83 M/mm3 (3.80-5.20); White Blood Cell Count 6.92 K/mm3 (4.00-11.30)
[2021-12-18 06:07] LABS: Bun/Creatinine Ratio 36.7 (12.0-20.0); Calcium, Blood 9.4 mg/dL (8.5-10.1); Creatinine, Blood 1.2 mg/dL (0.40-1.00)
[2021-12-18] MEDS ORDERED: OMEP20ER PO (06:50)
[2021-12-18] MEDS ORDERED: TIOT18 INH (06:55)
[2021-12-18] MEDS ORDERED: FLONASE ALLERG9.9 ML (06:56)
[2021-12-18] MEDS ORDERED: BREO ELLIPTA 11 EAC1 INH (06:57)
[2021-12-18] MEDS ORDERED: CARBAMAZEPINE200 M1 PO (06:58)
[2021-12-18] MEDS ORDERED: GLIP5 PO (07:00)
[2021-12-18] MEDS ORDERED: DOCU100 PO (07:00)
[2021-12-18] MEDS ORDERED: MAGNESIUM OXID500 MG PO (07:01)
[2021-12-18] MEDS ORDERED: MECL25 PO (07:02)
[2021-12-18] MEDS ORDERED: ASPI81CH PO (07:02)
[2021-12-18] MEDS ORDERED: CLOP75 PO (07:03)
[2021-12-18] MEDS ORDERED: CARV6.25 PO (07:09)
[2021-12-18] MEDS ORDERED: CARDURA2 M2 PO (07:10)
[2021-12-18] MEDS ORDERED: ISOSORBIDE MONO60 MG PO (07:11)
[2021-12-18] MEDS ORDERED: ONDA4 PO (07:12)
[2021-12-18] MEDS ORDERED: IRON18 MG PO (07:12)
--- NOTE | 2021-12-18 07:30 | NUR ---
PT ADMITTED TO ROOM ICU 14 AT 0620 THIS MORNING. PT UNDER PCU STATUS. REPORT RECEIVED. PT PRENSENTS WITH DYSPNEA. ANXIOUS AFFECT. PT SLIDE TRANSFERRED TO BED FROM [facility]. PT GOOD HISTORIAN. UPDATED MEDICATION LIST. REPORT GIVEN TO ONCOMING RN.
[2021-12-18] MEDS ORDERED: SERTRALINE HCL50 MG PO (07:34)
[2021-12-18] MEDS ORDERED: ESTROVEN CMPLT M4 MG PO (07:34)
--- NOTE | 2021-12-18 07:49 | NUR ---
ASSUME CARE: I have assumed care of this patient.
--- NOTE | 2021-12-18 08:05 | NUR ---
PHONE CALL: Dr. Howard called for home dose of pantoprazole of 20mg BID; telephone order.
--- NOTE | 2021-12-18 15:37 | NUR ---
UPDATE: PRN hydralazine given with minimal effect. Dr Hansen called and notified of continued hypertension; She will put in order for nicardipine drip and transfer to ICU status.
--- NOTE | 2021-12-18 18:42 | NUR ---
SHIFT SUMMARY: Pt transferred to ICU status this afternoon for nicardapine drip. Pt's blood pressures have been elevated, but labile. Hydralazine PRN given with minimal effect. Nicardapine currently at 5. Pt complains of headache for which she was given 650mg tylenol. UOP 850 today; total fluid balance -490 this shift. Pt complaining of dyspnea on exertion that is considerably worse than usual. Pt on 2 liters O2 baseline and CPAP at night at home. Declined bed bath due to fatigue. Pt was encouraged to turn q two hours and was offered assistance, however she decline repositioning as well. Tolerating PO intake well. Family at bedside and interactive with patient.
--- NOTE | 2021-12-18 19:41 | NUR ---
ASSUMED CARE OF PT AT 1915. REPORT RECEIVED AT BEDSIDE. PT PRESENTS IN BED EATING HER DINNER. FAMILY AT BEDSIDE. PT ALERT AND ORIENTED. PLEASANT AND COOPERATIVE WITH CARE AND ASSESSMENT. WILL REVIEW CHART AND PLAN OF CARE FOR THIS PT.
--- NOTE | 2021-12-19 00:19 | NUR ---
PT CONTINUES ON NICARDIPINE DRIP WHICH HAS BEEN INCREASED TO 7.5. REMAINS WITH HYPERTENSION. BLOOD PRESSURES DO VARY IN VALUE. SOMEWHAT COORELATED TO ANXIOUSNESS. DID PLACE 18 GAUGHE BY 10 CM POWERGLIDE IN LEFT UPPER ARM. PT TOLERATES WELL. USED LIDOCAINE 1 PERCENT. PT EASILY BECOMES ANXIOUS WITH CONVERSATION AND WITH ANY MOVEMENTS. PT DOES MOVE HERSELF ABOUT IN BED ON HER OWN. DOES NEED SOME ENCOURAGEMENT.
[2021-12-19 04:01] LABS: Hematocrit 32.8 % (33.0-51.0); Hemoglobin 10.8 g/dL (11.5-16.0); Mean Corpuscular HGB 29.3 pg (26.0-34.0); Mean Corpuscular HGB Conc 32.9 g/dL (31.5-36.5); Mean Corpuscular Volume 89 fL (80-100); Mean Platelet Volume 10.3 fL (9.1-12.4); Platelet Count 223 K/mm3 (150-400); RDW Coefficient Variation 15.5 % (11.7-14.2); RDW Standard Deviation 50.2 fL (35.1-46.3); Red Blood Cell Count 3.69 M/mm3 (3.80-5.20); White Blood Cell Count 8.85 K/mm3 (4.00-11.30)
[2021-12-19 04:19] LABS: Albumin, Blood 3.2 g/dL (3.4-5.0); Albumin/Globulin Ratio 0.9 (0.8-1.8); Bilirubin, Total 0.6 mg/dL (0.1-1.0); Bun/Creatinine Ratio 33.6 (12.0-20.0); Calcium, Blood 8.6 mg/dL (8.5-10.1); Creatinine, Blood 1.25 mg/dL (0.40-1.00); Globulin, Blood 3.7 g/dL (2.2-4.0); Potassium, Blood 3.7 mmol/L (3.5-5.5); Total Protein, Blood 6.9 g/dL (6.4-8.2)
--- NOTE | 2021-12-19 05:54 | NUR ---
PT'S NICARDIPINE DRIP TITRATED UPWARDS THROUGH THE NIGHT TO CURRENT 12.5 MG/HOUR. PT HAS BEEN ABLE TO TURN HERSELF IN BED. DOES BECOME VERY DYSPNEIC WITH ANY EXERTION. MAINTAINS ON HOME CPAP WITH 2 L/M O2 BLEEDIN. MAINTAINS OXYGEN SATURATIONS > 90 PERCENT. CPAP WITHOUT O2 BLEED IN, SATURATIONS 88 PERCENT. POWERGLIDE PLACED TO LEFT UPPER ARM. CALL MADE TO DR RUSSELL THIS NIGHT FOR A POSSITIVE BLOOD CULTURE OF GRAM POSITIVE COCCI IN CLUSTERS. NO NEW ORDERS RECEIVED. PT REMAINS AFEBRILE. WILL CONTINUE TO MONITOR PT, AND WILL REPORT OFF TO ONCOMING RN.
--- NOTE | 2021-12-19 07:00 | NUR ---
ASSUME CARE: I have assumed care of this patient.
--- NOTE | 2021-12-19 15:06 | NUR ---
UPDATE: Dr Hansen called regarding CT and US; will order CTA chest abdomen pelvis and d/c PE study and renal US.
--- NOTE | 2021-12-19 16:49 | NUR ---
UPDATE: PT REPORTING SHARP, LEFT SIDED CHEST PAIN THAT BEGAN AFTER EXERTION AND HAS NOT IMPROVED FOR APPROXMATELY [address] COWART CALLED AND NOTIFIED; NEW ORDER FOR EKG AND PRN MORPHINE
--- NOTE | 2021-12-19 18:43 | NUR ---
SHIFT SUMMARY: Pt up in chair for most of day. She declined bed bath again today, stating that she was too fatigued. Nicardapine currently at 10 mg/hr (100mls/hr). Pt to CT this afternoon for CTA chest abdomen pelvis. After CT, pt has had a difficult time recovering; she complains of "twinges" of sharp, left sided chest pain as well as increased SOB. One time dose of 20mg lasix given. Dr Garcia consulted regarding results. Pt to be NPO after midnight tonight. 24 hour urine collection started at 11:00 am today.
--- NOTE | 2021-12-19 20:00 | NUR ---
ASSUMED CARE OF PT AT 1915. REPORT RECEIVED. PT PRESENTS IN BED. ALERT AND ORIENTED. DOES STATE SHE FEELS IF SHE IS UNABLE TO BREATHE. PT'S OXYGEN SATURATIONS > 90 PERCENT WITH NASAL CANNULA AT 4 L/M. CONTINUES ON NICARDIPINE DRIP AT 10 MG/HOUR. BLOOD PRESSURES NOTED WITHOUT MUCH FLUCTUATION DAY PREVIOUS. WILL REVIEW CHART AND PLAN OF CARE FOR THIS PT.
[2021-12-19 21:26] LABS: Source, Urine Foley catheter
[2021-12-19 21:30] LABS: Bilirubin, Urine Neg (Neg); Blood, Urine 5+ (Neg); Glucose Qualitative, Urine Neg (Neg); Ketones, Urine Neg (Neg); Leukocyte Esterase, Urine 1+ (Neg); Nitrite, Urine Neg (Neg); Protein, Urine 3+ (Neg); Urobilinogen, Urine NORM (Normal)
[2021-12-19 21:33] LABS: Appearance, Urine Hazy (Clear); Color, Urine Yellow (P-Yellow)
[2021-12-19 21:40] LABS: Bacteria Few /hpf; Red Blood Cells, Urine TNTC /hpf (0-2); Squamous Epithelial Cells Few /hpf (Few); White Blood Cells, Urine 0-2 /hpf (0-5)
[2021-12-20 04:33] LABS: Hematocrit 29.9 % (33.0-51.0); Hemoglobin 9.6 g/dL (11.5-16.0); Mean Corpuscular HGB 28.9 pg (26.0-34.0); Mean Corpuscular HGB Conc 32.1 g/dL (31.5-36.5); Mean Corpuscular Volume 90 fL (80-100); Mean Platelet Volume 10.5 fL (9.1-12.4); Platelet Count 189 K/mm3 (150-400); RDW Coefficient Variation 15.3 % (11.7-14.2); RDW Standard Deviation 50.8 fL (35.1-46.3); Red Blood Cell Count 3.32 M/mm3 (3.80-5.20); White Blood Cell Count 6.46 K/mm3 (4.00-11.30)
--- NOTE | 2021-12-20 04:52 | NUR ---
PT HAS REMAINED WITH HER HOME CPAP MASK AND HER HOME SETTINGS THROUGHOUT THE NIGHT. SHE HAD STATED THAT SHE HAS NOT HAD A GOOD NIGHT SLEEP IN PAST FEW NIGHTS SO ALLOWED TO PT BE UNDESTURBED MUCH THIS NIGHT FOR HER TO GET HER REST. PT CONTINUES ON NICARDAPINE DRIP AT 10 MG/HOUR WHICH HAS GIVEN A MORE STEADY BLOOD PRESSURE THIS NIGHT. WILL CONTINUE TO MONITOR PT, AND WILL REPORT OFF TO ONCOMING RN.
[2021-12-20 04:55] LABS: Albumin/Globulin Ratio 0.8 (0.8-1.8); Bilirubin, Total 0.5 mg/dL (0.1-1.0); Bun/Creatinine Ratio 28.8 (12.0-20.0); Calcium, Blood 8.5 mg/dL (8.5-10.1); Creatinine, Blood 1.46 mg/dL (0.40-1.00); Globulin, Blood 3.6 g/dL (2.2-4.0); Potassium, Blood 3.9 mmol/L (3.5-5.5); Total Protein, Blood 6.6 g/dL (6.4-8.2)
--- NOTE | 2021-12-20 08:00 | NUR ---
PT STATES BASELINE BLOOD PRESSURE IS BETWEEN 150-170 SYSTOLIC
--- NOTE | 2021-12-20 09:16 | NUR ---
PT REFUSING ALL MEDS, BESIDES PROTONIX, UNTIL SHE CAN EAT, D/T RISK OF THROWING UP. STATES WILI DOESN'T WORK AND REITERATES THAT SHE MUST EAT TO KEEP THEM DOWN. RN TO NOTIFY PHYSICIAN.
--- NOTE | 2021-12-20 11:08 | NUR ---
ATTEMPTED TO NOTIFY DR. COSTA OF CONSULT FROM . NO ANSWER
--- NOTE | 2021-12-20 16:00 | NUR ---
SUMMARY NEURO; A/O X4, AT BASELINE LUNGS; 2LNC, DYSPNEA ON EXERTION, CRACKLES IN BASES, PT NOT INTERESTED IN USING BIPAP AT THIS TIME. CARDIAC; BLE AND BUE EDEMA, NSR, ON 2.5MG/HR OF NICARDIPINE DRIP, 2 DOSES OF PRN HYDRALAZINE GIVEN. CARDIAC PO MEDS ADJUSTED BY AIR TRAFFIC INSTRUCTOR, PER DR. COSTA SYSTOLIC GOAL 150-170 CONSITENT WITH PT'S BASELINE. GI; NO BM SINCE THURSDAY ; CRICKET IN PLACE, 24HR URINE SENT AT 11AM WITH ONLY 1500ML. RENAL ULTRASOUND COMPLETED TODAY- SEE RESULTS. MED REC COMPLETED
[2021-12-20] MEDS ORDERED: AMLO5 PO (17:03)
[2021-12-20] MEDS ORDERED: ATOR40TA PO (17:05)
[2021-12-20] MEDS ORDERED: CATAPRES0.3 MG PO (17:09)
[2021-12-20] MEDS ORDERED: ESTROVEN CMPLT M4 MG PO (17:11)
[2021-12-20] MEDS ORDERED: OLME20 PO (17:15)
[2021-12-20] MEDS ORDERED: POTA10T PO (17:17)
[2021-12-20] MEDS ORDERED: PANT20 PO (17:18)
[2021-12-20] MEDS ORDERED: PRED1 PO (17:22)
[2021-12-20] MEDS ORDERED: SOAANZ40 MG PO (17:24)
[2021-12-20] MEDS ORDERED: Voltaren100 GM TOP (17:26)
--- NOTE | 2021-12-20 19:15 | NUR ---
ASSUMPTION OF CARE PT SITTING IN CHAIR WITH IN ROOM. SHE IS ON 2L NC WITH SPO2 >90%. SHE APPEARS UNCOMFORTABLE AND SOB. PT MOVED TO BED AND PLACED ON CPAP. INCREASED TO 5L DUE TO DYSPNEA WITH EXCERTION. HARLEY PATENT AND DRAINING CLOUDY YELLOW URINE. PT IS ALERT AND ORIENTED. SHE IS ON NICARDIPINE 2.5MG/HR. SEE SHIFT ASSESSMENT.
[2021-12-21 04:54] LABS: Hematocrit 29.5 % (33.0-51.0); Hemoglobin 9.6 g/dL (11.5-16.0); Mean Corpuscular HGB 29.4 pg (26.0-34.0); Mean Corpuscular HGB Conc 32.5 g/dL (31.5-36.5); Mean Corpuscular Volume 90 fL (80-100); Platelet Count 188 K/mm3 (150-400); RDW Standard Deviation 53.1 fL (35.1-46.3); Red Blood Cell Count 3.27 M/mm3 (3.80-5.20); White Blood Cell Count 6.48 K/mm3 (4.00-11.30)
[2021-12-21 05:13] LABS: Albumin/Globulin Ratio 0.8 (0.8-1.8); Bilirubin, Total 0.5 mg/dL (0.1-1.0); Bun/Creatinine Ratio 28.9 (12.0-20.0); Calcium, Blood 8.7 mg/dL (8.5-10.1); Creatinine, Blood 1.59 mg/dL (0.40-1.00); Globulin, Blood 3.8 g/dL (2.2-4.0); Potassium, Blood 3.9 mmol/L (3.5-5.5); Total Protein, Blood 6.8 g/dL (6.4-8.2)
[2021-12-21 05:41] LABS: BAND PERCENT MAN 1 % (0-8); BASOPHILS PERCENT MAN 0 % (0-2); EOSINOPHILS ABSOLUTE MAN 0.06 K/mm3 (0.00-0.68); EOSINOPHILS PERCENT MAN 1 % (0-6); LYMPHOCYTES ABSOLUTE MAN 0.25 K/mm3 (0.84-5.20); LYMPHOCYTES PERCENT MAN 4 % (21-46); MONOCYTES ABSOLUTE MAN 0.12 K/mm3 (0.16-1.47); MONOCYTES PERCENT MAN 2 % (4-13); NEUTROPHILS ABSOLUTE MAN 6.02 K/mm3 (1.96-9.15); SEG NEUTROPHILS PERCENT MAN 92 % (41-73); TOTAL CELLS COUNTED 100
--- NOTE | 2021-12-21 06:08 | NUR ---
SHIFT SUMMARY PT REMAINS ON NICARDIPINE 2.5MG/HR. SHE HAS WORN HER CPAP THROUGH THE WHOLE NIGHT WITH 2-5L. SHE WAS ABLE TO REST MOST OF THE NIGHT AND WOKE UP AROUND 0430 FEELING SOB. TREATMENT PROVIDED BY RT. CRICKET JHA AND DRAINING WITH SHIFT OUPUT OF 525ML. NO SIGNIFICANT CHANGES THIS SHIFT. WILL REPORT TO ONCOMING RN.
--- NOTE | 2021-12-21 08:10 | NUR ---
TOOK OVER CARE OF PT AT 0700, PT RESTING ON HOME CPAP MACHINE, NICARDIPINE DRIP AT 2.5MG/HR
--- NOTE | 2021-12-21 10:00 | NUR ---
PT REQUESTING AM MEDS TOLERATED, ALL AVAILABLE TO THE PATIENT WHEN SHE IS READY.
--- NOTE | 2021-12-21 10:41 | NUR ---
PER PT REQUEST, NOTIFIED OF DEMADEX HOME DOSAGE AMOUNT
--- NOTE | 2021-12-21 18:26 | NUR ---
SUMMARY NEURO: A/O X4 CARDIAC: EDEMA DECREASING BUT STILL PRESENT. NICARDIPINE DRIP OFF. PO CARDIAC AND PRN MEDS ADJUSTED. LUNGS; CRACKLES IN BASES, 2-4L NC TODAY, 2L NC AT BASELINE. PT REPORTS MORE DYSPNEA THAN AT BASELINE. GI/; URINE 50ML/HR, NO BM
--- NOTE | 2021-12-21 19:15 | NUR ---
ASSUMPTION OF CARE PT SLEEPING AND WAKENS EASILY. SHE IS LYING IN BED WITH CPAP ON AND 4L. SHE IS ALERT AND ORIENTED. HARLEY PATENT AND DRAINING SMALL AMOUNT OF URINE. SBP 150S. DR LABOY AT BEDSIDE FOR EVAL. ORDER RECEIVED TO INCREASE TORSEMIDE. SEE SHIFT ASSSSMENT.
[2021-12-22 05:09] LABS: Hematocrit 26.6 % (33.0-51.0); Hemoglobin 8.7 g/dL (11.5-16.0); Mean Corpuscular HGB 29.9 pg (26.0-34.0); Mean Corpuscular HGB Conc 32.7 g/dL (31.5-36.5); Mean Corpuscular Volume 91 fL (80-100); Mean Platelet Volume 10.7 fL (9.1-12.4); Platelet Count 167 K/mm3 (150-400); RDW Standard Deviation 53.8 fL (35.1-46.3); Red Blood Cell Count 2.91 M/mm3 (3.80-5.20); White Blood Cell Count 4.22 K/mm3 (4.00-11.30)
[2021-12-22 05:36] LABS: Albumin, Blood 2.7 g/dL (3.4-5.0); Albumin/Globulin Ratio 0.8 (0.8-1.8); Bilirubin, Total 0.4 mg/dL (0.1-1.0); Bun/Creatinine Ratio 30.9 (12.0-20.0); Calcium, Blood 8.3 mg/dL (8.5-10.1); Creatinine, Blood 1.65 mg/dL (0.40-1.00); Globulin, Blood 3.2 g/dL (2.2-4.0); Potassium, Blood 3.9 mmol/L (3.5-5.5); Total Protein, Blood 5.9 g/dL (6.4-8.2)
--- NOTE | 2021-12-22 05:39 | NUR ---
SHIFT SUMMARY NO ACUTE CHANGES OVERNIGHT. PT HAS WORN CPAP THROUGHOUT NIGHT WITH 2-4L. CONTINUES TO FEEL SOB WITH EXCERTION AND MOVEMENT. SALINE LOCKED. SBP CURRENTLY 140S. HARLEY PATENT AND DRAINING TO GRAVITY WITH SHIFT OUTPUT OF 400ML DARK YELLOW URINE. SHE REMAINS ON FLUID RESTRICTION OF 1000ML/DAY AND DRANK 50ML THIS SHIFT. WILL REPORT TO ONCOMING RN.
--- NOTE | 2021-12-22 08:07 | NUR ---
GIVING AM MEDS PT REQUEST THEM
--- NOTE | 2021-12-22 18:01 | NUR ---
PT IS ALERT AND ORIENED. TRANSFERED FROM ICU AROUND 1130 FOR HTN EMERGENCY. SINCE TX HER SYSTOLIC HAS RANGED FROM 130-150 AND HAS PERSISTENT BRADYCARDIA. SHE IS ON A 1000CC STRICT FLUID RESTRICTION FOR FLUID OVERLOAD. LUNGS SOUND CLEAR, SLIGHTLY DIMINISHED. OXYGEN IS KEPT AT 3-4L.
[2021-12-23 03:56] LABS: Hematocrit 28.8 % (33.0-51.0); Hemoglobin 9.4 g/dL (11.5-16.0)
[2021-12-23 04:12] LABS: Albumin, Blood 2.8 g/dL (3.4-5.0); Anion Gap 9 mmol/L (6-16); Blood Urea Nitrogen 57 mg/dL (8-24); Bun/Creatinine Ratio 33.9 (12.0-20.0); CO2, Blood 24 mmol/L (21-32); Calcium, Blood 8.5 mg/dL (8.5-10.1); Chloride, Blood 107 mmol/L (98-108); Creatinine, Blood 1.68 mg/dL (0.40-1.00); Glomerular Filtration Rate 30 (60-); Glucose, Blood 124 mg/dL (70-99); Magnesium, Blood 2.2 mg/dL (1.6-2.4); Phosphorus, Blood 4.5 mg/dL (2.5-4.9); Potassium, Blood 3.9 mmol/L (3.5-5.5); Sodium, Blood 140 mmol/L (136-145)
--- NOTE | 2021-12-23 05:48 | NUR ---
SHIFT SUMMARY PT IS ALERT AND ORIENTED. THERE HAVE BEEN NO ACUTE CHANGES T/O THE SHIFT. VITLAS ARE STABLE AND PT HAS BEEN ON 3LNC OR CPAP WHILE SLEEPING WITH SATS ABOVE 92%. PT DENIES CHEST PAIN. PT HAS BEEN SOB WITH EXERTION AND OXYGEN HAD TO BE INCREASED WHILE PT WAS PIVOTING FROM CHAIR TO BED. PT REPORTS NOT HAVING A BM SINCE ADMISSION. PT HAS BEEN SLEEPING MOST OF THE NIGHT. HARLEY IN PLACE AND DRAINING OT GRAVITY. CALL LIGHT IS WITHIN REACH.
--- NOTE | 2021-12-23 14:08 | NUR ---
NO SIGNIFICANT CHANGES. BP WAS HIGH THIS MORNING BUT HAS SINCE CAME BACK DOWN TO HER BASELINE THAT SHES BEEN SINCE YESTERDAY. PATIENT IS ON 3L NC WHICH IS HER BASELINE. PATIENT BECOMES DYSPNIC ON EXERTION AND NEEDS TO HAVE OXYGEN INCREASED TO 4-5L OF OXYGEN BUT OTHERWISE DENIES SOB OR CHEST PAIN. SHE IS TOLERATING HER PO INTAKE. SHE IS ON A FLUID RESTRICTION OF 600CCS DURING THE DAY THEN 400 AT NIGHT. HARLEY IS IN PLACE AND IS DRAINING PER GRAVITY. SHE IS A SBA TO BSC AND CHAIR. IS IN THE ROOM. CALL LIGHT WITHIN REACH. PATIENT HAD A VERY LARGE BM THIS MORNING. HAND OFF WILL BE GIVEN TO PRN NURSE SHORTLY TO TAKE OVER.
--- NOTE | 2021-12-23 14:58 | NUR ---
ASSUMPTION OF CARE HANDOFF REPORT RECEIVED FROM TATIANA Obregon RN.
--- NOTE | 2021-12-23 18:23 | NUR ---
SHIFT SUMMARY PT HAS BEEN RESTING IN CHAIR SINCE THIS RN ASSUMED CARE. PT HAS BEEN DROWSY BUT ROUSABLE BY VOICE OR GENTLE TOUCH. PT HAS HAD NO C/O PAIN OR DISCOMFORT. PT HAS BEEN PLEASANT AND COOPERATIVE WITH CARES. PT HAS TAKEN AN ACTIVE ROLE IN CARE AND ASKED QUESTIONS TO BETTER UNDERSTAND THEIR MEDICATIONS. TEMP. 98.0 F, PULSE 48, RR 16, BP 152/51, SPO2 98% ON RA.
[2021-12-24 05:01] LABS: Hematocrit 28.9 % (33.0-51.0); Hemoglobin 9.6 g/dL (11.5-16.0)
[2021-12-24 05:11] LABS: METANEPHRINE, UR 215 ug/L (Undefined)
[2021-12-24 05:31] LABS: Albumin, Blood 2.9 g/dL (3.4-5.0); Anion Gap 9 mmol/L (6-16); Blood Urea Nitrogen 52 mg/dL (8-24); Bun/Creatinine Ratio 35.4 (12.0-20.0); CO2, Blood 25 mmol/L (21-32); Chloride, Blood 108 mmol/L (98-108); Creatinine, Blood 1.47 mg/dL (0.40-1.00); Glomerular Filtration Rate 35 (60-); Glucose, Blood 124 mg/dL (70-99); Magnesium, Blood 2.2 mg/dL (1.6-2.4); Phosphorus, Blood 3.8 mg/dL (2.5-4.9); Potassium, Blood 3.4 mmol/L (3.5-5.5); Sodium, Blood 142 mmol/L (136-145)
--- NOTE | 2021-12-24 06:45 | NUR ---
SHIFT SUMMARY PATIENT ALERT AND ORIENTED. MEDICATED PER EMAR FOR PAIN. GETS DYSPNIC UPON EXERTION. NO ACUTE ISSUES NOTED OVERNIGHT. CALL LIGHT WITHIN REACH. REPORT GIVEN TO ONCOMING RN.
[2021-12-24] MEDS ORDERED: ESTROGEN PO (09:25)
--- NOTE | 2021-12-24 19:33 | NUR ---
SHIFT SUMMARY- PT A/OX4, 1 ASSIST WITH FWW UP TO BSC. PT MEDICATED X1 WITH TYLENOL FOR MID BACK PAIN. LS CLEAR, ON 2L SATS IN THE MID 90'S, OCCASIONAL DESATS TO HIGH 80'S WITH EXERTION. SOB WITH EXERTION. CPAP AT HS, CONT BIOX IN PLACE. TELE SR AT 75 BUT DOES STEFFANIE INTO THE 50'S. 1+ BLE EDEMA NOTED. PT BP ELEVATED T/O THE DAY INTO THE 220'S. SCHEDULE CARDIAC MEDS GIVEN WELL PRN IV HYDRALAZINE, SBP DID COME DOWN INTO THE 160'S BUT INCREASED BACK TO THE 180'S. CRICKET DC'D, PT VOIDING. PHYSICAL THERAPY EVAL COMPLETED. BRUISING NOTED TO RIGHT ABD, ABRASION ON BUTTOCKS. NO OTHER ACUTE CHANGES THIS SHIFT.
--- NOTE | 2021-12-25 04:33 | NUR ---
TIE KNITTER HELPER SUMMARY AWAKE AT INTERVALS. VOICED BACK PAIN AND NOTED ELEVATED BP. RECEIVED TYLENOL FOR PAIN AND ANTIHPERTENSIVE MED FOR ELEVATED BP. WAS 200/59 AT EARLIER WHEN SHE RECEIVED THE MED, BP NOW TRENDING DOWN. ASYMPTOMATIC. CALL LIGHT IN REACH. WILL CONTINUE TO MONITOR
[2021-12-25 07:39] LABS: Albumin, Blood 3.1 g/dL (3.4-5.0); Anion Gap 7 mmol/L (6-16); Blood Urea Nitrogen 39 mg/dL (8-24); Bun/Creatinine Ratio 33.3 (12.0-20.0); CO2, Blood 27 mmol/L (21-32); Calcium, Blood 9.1 mg/dL (8.5-10.1); Chloride, Blood 108 mmol/L (98-108); Creatinine, Blood 1.17 mg/dL (0.40-1.00); Glomerular Filtration Rate 46 (60-); Glucose, Blood 137 mg/dL (70-99); Potassium, Blood 3.3 mmol/L (3.5-5.5); Sodium, Blood 142 mmol/L (136-145)
[2021-12-25] MEDS ORDERED: LOSA25 PO (13:54)
[2021-12-25] MEDS ORDERED: ACET325 PO (13:56)
[2021-12-25] MEDS ORDERED: HYDRA50 PO (13:56)
[2021-12-25] MEDS ORDERED: TORSE20 PO (13:57)
--- NOTE | 2021-12-25 16:29 | NUR ---
DISHCARGE SUMMARY- DISCHARGE INSTRUCTIONS REVIEWED WITH PT AND SPOUSE. PHARMACIST REVEWED DISCHARGE MEDICATIONS. POWERGLIDE DC'D INTACT BY RN STUDENT. HOME 02 EVAL COMPLETED WITH 02 AT 2L CONT, [facility] DROPPED OFF PORTABLE 02 AND PT ALREADY HAS CONCENTRATOR AT HOME. F/U APPT MADE AT PCP'S AND DR LABOY, PT TO F/U WITH HH. U/S COMPLETED OF BLE PRIOR TO DISCHARGE NO DVT NOTED. BP 184/48, PER DR FUNEZ OK TO DISCHARGE HOME. PT DC'D HOME WITH SPOUSE AT 1637 ESCORTED OUT VIA W/C.
--- NOTE | 2021-12-26 09:35 | NUR ---
Received referral from nurse managed care manager (Marlena Puentes) on 12/25/2021. Patient discharged 12/25/2021 with orders for home health and elected [facility]. Contacted patient at number listed on demographic sheet today- 12/26/2021 to further discuss the above. Spoke with patient and patient's (Cristobal Franz) who are agreeable to the above. Discussed homebound status definition with patient and . Patient and verbalized understanding. Discussed what home health is vs what it is not (in home caregivers/housekeeping). Patient and verbalized understanding. Discussed the next steps in the process of an initial assessment to determine frequency of visits. Again patient and verbalized understanding. Offered a chance for patient and to ask questions regarding the above of which there were none. Gathered all supporting documentation for referral (face sheet, face to face, med list, H&P, discharge summary, and most recent PT assessment) and sent to [facility] for review. No further interventions required. Dalia Curry Referral Liaison
[2022-01-01 20:06] LABS: 5-HIAA, URINE 2.6 mg/L (Undefined); CREATININE, URINE 52.9 mg/dL (Not Estab.); CREATININE, URINE 54.3 mg/dL (Not Estab.)
[2022-01-02 15:10] LABS: ALDOS/RENIN RATIO 0.2 (0.0-30.0); ALDOSTERONE 5.1 ng/dL (0.0-30.0)
== END 2021-12-25 16:40 | disposition home health service (06) | DRG 291 ==
LOC: ER 20:01 → ICUW 12-18 03:05 → ERHOLD 12-18 03:05 → ICUW 12-18 05:45 → PCU 12-22 11:10 → MEDS 12-23 18:37
PROVIDERS: Family Medicine; Internal Medicine; Internal Medicine Nephrology; Physician Assistant; ADMIT Internal Medicine
PROC: 5A09357 Assistance with Respiratory Ventilation, Less than 24 Consecutive Hours, Continuous Positive Airway Pressure (ICD-10-PCS; principal; 2021-12-18)
DX: I13.0 Hypertensive heart and chronic kidney disease with heart failure and stage 1 through stage 4 chronic kidney disease, or unspecified chronic kidney disease (principal); I50.33 Acute on chronic diastolic (congestive) heart failure; I16.1 Hypertensive emergency; N17.9 Acute kidney failure, unspecified; Z68.41 Body mass index [BMI] 40.0-44.9, adult; N25.81 Secondary hyperparathyroidism of renal origin; E66.2 Morbid (severe) obesity with alveolar hypoventilation; I27.20 Pulmonary hypertension, unspecified; E88.09 Other disorders of plasma-protein metabolism, not elsewhere classified; E87.6 Hypokalemia; I25.10 Atherosclerotic heart disease of native coronary artery without angina pectoris; I25.2 Old myocardial infarction; N18.30 Chronic kidney disease, stage 3 unspecified; E78.5 Hyperlipidemia, unspecified; E11.22 Type 2 diabetes mellitus with diabetic chronic kidney disease; J44.9 Chronic obstructive pulmonary disease, unspecified; E11.42 Type 2 diabetes mellitus with diabetic polyneuropathy; K21.9 Gastro-esophageal reflux disease without esophagitis; I70.1 Atherosclerosis of renal artery; D63.1 Anemia in chronic kidney disease; F32.A Depression, unspecified; Z86.73 Personal history of transient ischemic attack (TIA), and cerebral infarction without residual deficits; Z79.899 Other long term (current) drug therapy; Z79.82 Long term (current) use of aspirin; Z79.02 Long term (current) use of antithrombotics/antiplatelets; Z88.2 Allergy status to sulfonamides; Z88.8 Allergy status to other drugs, medicaments and biological substances; Z95.1 Presence of aortocoronary bypass graft; Z95.5 Presence of coronary angioplasty implant and graft; Z79.84 Long term (current) use of oral hypoglycemic drugs; Z90.49 Acquired absence of other specified parts of digestive tract; Z90.710 Acquired absence of both cervix and uterus; Z98.890 Other specified postprocedural states; Z87.891 Personal history of nicotine dependence
CPT/HCPCS: 36415; 71045; 71275; 74174; 80048; 80053; 80069; 81001; 81050; 82088; 82570; 82947; 83497; 83605; 83735; 83835; 83880; 84484; 84585; 85007; 85014; 85018; 85025; 85027; 87040; 87086; 93005; 93010; 93970; 94640; 94660; 94664; 94760; 94761; 94762; 96374; 96375; 96376; 97110; 97116; 97162; 97530; 99285-25; A9270; C1751; C9113; J0360; J1650; J1940; J2930; J7050; Q9967

== ENCOUNTER 2022-01-03 18:55 | Inpatient (IN) | payer MEDICARE, OTHER ==
[~2022-01-03] VITALS: Ht 152.4 cm; Wt 98.4 kg
[2022-01-03 19:48] LABS: BASOPHILS ABSOLUTE AUTO 0.02 K/mm3 (0.00-0.23); BASOPHILS PERCENT AUTO 0 % (0-2); EOSINOPHILS ABSOLUTE AUTO 0.14 K/mm3 (0.00-0.68); EOSINOPHILS PERCENT AUTO 2 % (0-6); Hematocrit 31.9 % (33.0-51.0); Hemoglobin 10.4 g/dL (11.5-16.0); IMMATURE GRAN ABSOLUTE AUTO 0.05 K/mm3 (0.00-0.10); IMMATURE GRAN PERCENT AUTO 1 % (0-1); LYMPHOCYTES ABSOLUTE AUTO 0.63 K/mm3 (0.84-5.20); LYMPHOCYTES PERCENT AUTO 8 % (21-46); MONOCYTES ABSOLUTE AUTO 0.47 K/mm3 (0.16-1.47); MONOCYTES PERCENT AUTO 6 % (4-13); Mean Corpuscular HGB 29.1 pg (26.0-34.0); Mean Corpuscular HGB Conc 32.6 g/dL (31.5-36.5); Mean Corpuscular Volume 89 fL (80-100); Mean Platelet Volume 10.7 fL (9.1-12.4); NEUTROPHILS ABSOLUTE AUTO 6.55 K/mm3 (1.96-9.15); NEUTROPHILS PERCENT AUTO 83 % (41-73); Platelet Count 236 K/mm3 (150-400); RDW Coefficient Variation 14.6 % (11.7-14.2); RDW Standard Deviation 46.1 fL (35.1-46.3); Red Blood Cell Count 3.57 M/mm3 (3.80-5.20); White Blood Cell Count 7.86 K/mm3 (4.00-11.30)
[2022-01-03 20:11] LABS: Albumin, Blood 3.6 g/dL (3.4-5.0); Albumin/Globulin Ratio 0.9 (0.8-1.8); Bilirubin, Total 0.4 mg/dL (0.1-1.0); Bun/Creatinine Ratio 25.4 (12.0-20.0); Calcium, Blood 9.1 mg/dL (8.5-10.1); Creatinine, Blood 1.18 mg/dL (0.40-1.00); Globulin, Blood 3.8 g/dL (2.2-4.0); Potassium, Blood 3.6 mmol/L (3.5-5.5); Total Protein, Blood 7.4 g/dL (6.4-8.2)
[2022-01-03 22:46] LABS: CPK Creatine Kinase 50 U/L (26-193)
--- NOTE | 2022-01-04 00:50 | NUR ---
NURSE NOTE: SAEED HAYNES CONTACTED REQUESTING TO MODIFY SCHEDULED NIGHT TIME MEDICATIONS PATIENT REPORTED NOT TAKING TO START NOW. GAVE TELEPHONE ORDER TO START LIPITOR, ZOLOFT, COLACE AND PROTONIX NOW AND RESUME NORMAL SCHEDULED REGIMINE.
--- NOTE | 2022-01-04 04:10 | NUR ---
SHIFT SUMMARY: TRANSFER FROM ED ADMIT. PT A/OX4, INCREASED SHORTNESS OF BREATH WITH EXERTION. PT REPORTS WEAKNESS BUT IS STEADY ON FEET, 1 PERSON STAND BY ASSIST. BASELINE 2-3 L O2 NASAL CANNULA AT HOME, CURRENTLY ON 3L O2 SATING 90's PERCENTILE. DIFFICULTY MANAGING BLOOD PRESSURE, MULTIPLE PRN BP MEDS ADMINISTERED. PT REPORTS PERSISTANT HEADACHE, ACETAMINOPHEN GAVE NO RELIEF. CONTINUE TREATING BP AND MONITOR HEADACHE, SUSPECTING HEADACHE CAUSED BY ELEVATED BP AT THIS TIME. PT RESTING WITH CPAP IN PLACE. PATIENT CALLS APPROPRIATELY AND FOLLOWS COMMANDS, BED IN LOW POSITION, BED ALARM ACTIVATED, CALL MERINO IN REACH.
[2022-01-04 06:44] LABS: BASOPHILS ABSOLUTE AUTO 0.01 K/mm3 (0.00-0.23); BASOPHILS PERCENT AUTO 0 % (0-2); EOSINOPHILS ABSOLUTE AUTO 0.11 K/mm3 (0.00-0.68); EOSINOPHILS PERCENT AUTO 2 % (0-6); Hematocrit 27.9 % (33.0-51.0); Hemoglobin 9.2 g/dL (11.5-16.0); IMMATURE GRAN ABSOLUTE AUTO 0.02 K/mm3 (0.00-0.10); IMMATURE GRAN PERCENT AUTO 0 % (0-1); LYMPHOCYTES ABSOLUTE AUTO 0.44 K/mm3 (0.84-5.20); LYMPHOCYTES PERCENT AUTO 8 % (21-46); MONOCYTES ABSOLUTE AUTO 0.41 K/mm3 (0.16-1.47); MONOCYTES PERCENT AUTO 7 % (4-13); Mean Corpuscular HGB 29.5 pg (26.0-34.0); Mean Corpuscular Volume 89 fL (80-100); Mean Platelet Volume 10.3 fL (9.1-12.4); NEUTROPHILS PERCENT AUTO 82 % (41-73); Platelet Count 175 K/mm3 (150-400); RDW Coefficient Variation 14.5 % (11.7-14.2); RDW Standard Deviation 46.6 fL (35.1-46.3); Red Blood Cell Count 3.12 M/mm3 (3.80-5.20); White Blood Cell Count 5.59 K/mm3 (4.00-11.30)
[2022-01-04 07:08] LABS: Albumin, Blood 3.1 g/dL (3.4-5.0); Albumin/Globulin Ratio 0.9 (0.8-1.8); Bilirubin, Total 0.4 mg/dL (0.1-1.0); Bun/Creatinine Ratio 23.7 (12.0-20.0); Calcium, Blood 8.9 mg/dL (8.5-10.1); Creatinine, Blood 1.14 mg/dL (0.40-1.00); Globulin, Blood 3.4 g/dL (2.2-4.0); Potassium, Blood 3.5 mmol/L (3.5-5.5); Total Protein, Blood 6.5 g/dL (6.4-8.2)
--- NOTE | 2022-01-04 22:00 | NUR ---
ALY HAYNES NOTIFIED PTS HR DROPPING INTO THE 40'S WHEN SLEEPING. NON SYMPTOMATIC. GAVE NO ORDERS FOR INTERVENTIONS AT THIS TIME. CONTINUE TO MONITOR INFORM IF PATIENT BECOMES SYMPTOMATIC OR HR SUSTAINS <40 BPM.
--- NOTE | 2022-01-05 03:01 | NUR ---
SHIFT SUMMARY: A/O X4, CONTINENT, SUPERVISION WHEN AMBULATING. CONTINUED 3L O2 NASAL CANNULA. PATIENTS BREATHING APPEARS TO HAVE IMPROVED SIGNIFICANTLY, LESS SHORT OF BREATH WHEN AMBULATING AND DECREASED DIFFICULTY BREATHING AT REST. HR BRADYCARDIC IN THE 40'S WHEN SLEEPING (MD NOTIFIED) NON SYMPTOMATIC. CPAP IN USE WHEN RESTING. PATIENT CALLS APPROPRIATELY, FOLLOWS COMMANDS. RESPOSTIONS SELF IN BED. BED ALARM ACTIVATED, BED IN LOW POSITION, CALL MERINO IN REACH.
[2022-01-05 05:18] LABS: Albumin, Blood 2.8 g/dL (3.4-5.0); Albumin/Globulin Ratio 0.9 (0.8-1.8); Bilirubin, Total 0.4 mg/dL (0.1-1.0); Bun/Creatinine Ratio 22.3 (12.0-20.0); Calcium, Blood 8.6 mg/dL (8.5-10.1); Creatinine, Blood 1.21 mg/dL (0.40-1.00); Globulin, Blood 3.1 g/dL (2.2-4.0); Potassium, Blood 3.5 mmol/L (3.5-5.5); Total Protein, Blood 5.9 g/dL (6.4-8.2)
--- NOTE | 2022-01-05 18:36 | NUR ---
SHIFT SUMMARY PATIENT IS ALERT AND ORIENTED X4, PLEASANT AND COOPERATIVE WITH CARE. SYSTOLIC BP'S HAVE BEEEN 170-190'S TODAY. BLOOD PRESSURE MEDS GIVEN PER MAR. HELD THE COREG TODAY PATIENT'S HEART RATE WAS NOT WITHIN PARAMETERS. HEART RATE WILL STEFFANIE TO THE 40'S WHILE THE PATIENT IS SLEEPING. HEART RATE HAS BEEN BETWEEN 50 AND 6O TODAY. PATIENT BECOMES SHORT OF BREATH WHILE AMBULATING. PATIENT STATES THEY WOULD LIKE TO BE ON TORSIMIDE VERSUS THE BUMEX THEY ARE GETTING NOW. PATIENT IS CURRENTLY UP IN RECLINER. CALL LIGHT WITHIN REACH.
--- NOTE | 2022-01-06 04:05 | NUR ---
SHIFT SUMMARY NO ACUTE CHANGES TO PT CONDITION. PT COMPLAINED OF BACK AND HEAD PAIN. MEDICATED PER EMAR AND PT WAS ABLE TO GO TO SLEEP. PT PLEASANT AND COOPERATIVE. CALL LIGHT IS WITHIN REACH AND WILL CONTINUE TO MONITOR.
[2022-01-06 06:36] LABS: Bun/Creatinine Ratio 22.9 (12.0-20.0); Calcium, Blood 9.1 mg/dL (8.5-10.1); Creatinine, Blood 1.09 mg/dL (0.40-1.00); Potassium, Blood 3.5 mmol/L (3.5-5.5)
--- NOTE | 2022-01-06 09:59 | NUR ---
PT REQUESTED TO PULL OUT IV THAT WAS TOTALLY WORKING. PT STATED IT IS UNCOMFORTABLE AND A LITTLE BIT PAINFUL WHENEVER WE DO A BLOOD PRESSURE CHECK. CANNOT CHECK A BP ON THE RIGHT SIDE OF ARM PER PT. TRIED TO PUT AN IV BUT WAS UNSUCCESSFUL. AWAITS FOR CHARGE TO START ANOTHER ATTEMPT. PT BP IS ELEVATED AGAIN THIS AM
--- NOTE | 2022-01-06 14:43 | NUR ---
CALLED AND ASKED ABOUT THE PT MEDICATION WHICH IS THE CLONIDINE AND HYDRALAZINE, THE PT BP WAS 160/50 USING THE MANUAL BP AND HR IS 57 TO LOW 50'S ON THE MONITOR . DR ORDERED TO HOLD THE MEDICATION DUE TO LOW HR.
--- NOTE | 2022-01-06 17:24 | NUR ---
SHIFT SUMMARY PT AOX4; AT BEDSIDE ALL DAY. PT IS ON 3L OF O2 AND USES CPAP AT NIGHT. PT DESATS WHEN GOING TO THE BATHROOM UP TO HIGH 80'S. BP WAS IN THE 200'S TODAY; BUT THEN DR ORDER TO USE MANUAL BP; PT BP HAS BEEN STAYING IN THE 150'S TO 170'S SBP. HR IS ON HIGH 40'S AND LOW 50'S TODAY PER TELE. CALLED THE DR FOR PARAMETERS ON BP MEDS TODAY. ENCOURAGE THE PT TO NOT TALK OR MOVE DURING BP CHECK TO GET AN ACCURATE READING PER DR. PT MEDICATED FOR PAIN NEEDED PER EMAR. PT C/O OF IV SITE BEING RED THIS AFTERNOON AND PAINFUL. ENCOURAGED TO ELEVATE THE ARM AND PLACED ICE TO MINIMIZE SWELLING. BED IS IN THE LOWEST POSITION AND CALL LIGHT WITHIN REACH
--- NOTE | 2022-01-07 04:32 | NUR ---
SHIFT SUMMARY ASSUMED CARE OF PT AT 1900. PT IS A/OX4. HEART SOUNDS REGULAR, LUNG SOUNDS DIMINISHED. PT WAS A 1P SBA TO BATHROOM. PT C/O PAIN IN HER R GLUTE FROM SORE. MEILEX CHANGED AND PT SLEPT OFF OF IT T/O THE NIGHT. PT C/O HEADACHE AND BACK ACHE, MEDICATED PER EMAR. PT SLEPT WITH HER CPAP ON T/O THE NIGHT.
[2022-01-07 06:34] LABS: Bun/Creatinine Ratio 17.8 (12.0-20.0); Calcium, Blood 8.5 mg/dL (8.5-10.1); Creatinine, Blood 1.29 mg/dL (0.40-1.00); Potassium, Blood 3.4 mmol/L (3.5-5.5)
--- NOTE | 2022-01-07 15:57 | NUR ---
SHIFT SUMMARY- PT WITH FAMILY(SON) AT BEDSIDE THROUGHOUT SHIFT. PT DESATS OCCASSIONALY BUT IMPROVES WITH PROPT DEEP BREATH REMINDERS. PT B/P HIGH AT BEGINING OF SHIFT BUT CONTROLLED THROUGHOUT SHIFT WITH MEDS PER EMAR. PT ASSIGNED FLUID RESTRICTION PRE DR ORDERS. PT PROPED IN CHAIR THROUGHOUT MOST OF DAY. CALL LIGHT WITHIN REACH.
--- NOTE | 2022-01-07 16:52 | NUR ---
SPOKE WITH DR. LABOY ABOUT CONSULT ORDER. AGREED TO PUT PT ON LIST. 01/07/22 @ 6644
--- NOTE | 2022-01-07 17:53 | NUR ---
THIS BATTERYMAN HAS REVIEWED ALL ASSESSMENTS AND NOTES BY TA BELLE AND AGREES WITH THEM.
[2022-01-08 00:17] LABS: Base Excess Venous 4.4 mmol/L; Bicarbonate Venous 28.1 mmol/L (24.0-30.0); PCO2 Venous 39.7 mmHg (38-42); PO2 Venous 145 mmHg (38-42); pH Blood Venous 7.46 (7.34-7.37)
[2022-01-08 00:36] LABS: Hematocrit 28.5 % (33.0-51.0); Hemoglobin 9.2 g/dL (11.5-16.0)
[2022-01-08 00:46] LABS: Albumin, Blood 2.8 g/dL (3.4-5.0); Anion Gap 7 mmol/L (6-16); Blood Urea Nitrogen 29 mg/dL (8-24); Bun/Creatinine Ratio 19.3 (12.0-20.0); CO2, Blood 28 mmol/L (21-32); Calcium, Blood 8.2 mg/dL (8.5-10.1); Chloride, Blood 101 mmol/L (98-108); Glomerular Filtration Rate 34 (60-); Glucose, Blood 181 mg/dL (70-99); Magnesium, Blood 1.2 mg/dL (1.6-2.4); Phosphorus, Blood 2.5 mg/dL (2.5-4.9); Potassium, Blood 3.4 mmol/L (3.5-5.5); Sodium, Blood 136 mmol/L (136-145)
--- NOTE | 2022-01-08 05:44 | NUR ---
SHIFT SUMMARY PATIENT RESTED THROUGHOUT NIGHT, VSS ON 3 LV VIA NC OR HOME CPAP, PATIENT DOES DESAT QUICKLY WITHOUT OXYGEN, PATIENT IS EXTREMELY LETHARGIC THIS SHIFT, A&O 2-3, PATIENT UP TO THE RESTROOM X 1, BECAME NAUSEASOUS WAS ALMOST UNABLE TO MAKE IS BACK TO BED, NEXT VOID WAS TO THE BEDSIDE COMMODE, PATIENT STILL EXTREMELY FATIGUED AND NOT FOLLOWING DIRECTIONS WELL, UNABLE TO HELP HERSELF UPRIGHT WHILE SITTING, PLACED PATIENT ON BEDREST FOR SAFETY UNTIL SHE IS ABLE TO PARTICIPATE IN CARE MORE, D/T PATIENT INCREASED LETHARGY, DR QUIÑONES WAS CALLED TO UPDATE HER ON PATIENT CONDITION FOR WORRY OF CO2 RETENTION. DR. QUIÑONES ORDERED A VBG AND FOR PATIENT TO WEAR HER CPAP.
--- NOTE | 2022-01-08 11:26 | NUR ---
SPOKE WITH DR. VALDOVINOS ABOUT ELEVATED TEMP 102.2. GENERAL WEAKNESS, ABLE TO STAND, REPORTED CURRENT B/P. DISCUSSED GIVING TYNENOL AROUND 1000. WILL PLACE ICE BEHIND NECK AND ARMPITS, CONTINUE TO MONITOR.
--- NOTE | 2022-01-08 14:35 | NUR ---
PT DISPLAYED TEMPERATURE OF 102.4 AT 1048. TREATED FOR PAIN/ FEVER PER EMAR. REASSED TEMP AT 1410 PT TEMP 98.4.
--- NOTE | 2022-01-08 15:02 | NUR ---
Spoke with Primary RN Zuri reporting Pt and family may benefit from F/U discussion regarding code status wishes. Pt resting in bed with eyes closed. Pt's spouse Cristobal and Pt's friend at bedside. Pt awakes briefly and intermittently during conversation but does not interact. Engaged in therapeutic listening as spouse reports being to Pt for over 30 years. He reports Pt is visiting the hospital more frequently and has seen a decline with Pt during this hospital visit. Engaged in therapeutic discussion regarding wishes for CPR. Educated on life sustaining treatment including risk factors and implications of CPR. Gentle education on disease process including trajectory. Spouse reports plan to make a decision regarding Pt's code status after speaking with hospitalist regarding results of latest CT. Continued therapeutic listening and answered questions. Spouse expresses appreciation and report no other concerns at this time. Palliative Care will remain available.
[2022-01-08 16:35] LABS: Hematocrit 27.2 % (33.0-51.0); Hemoglobin 8.8 g/dL (11.5-16.0); Mean Corpuscular HGB 29.6 pg (26.0-34.0); Mean Corpuscular HGB Conc 32.4 g/dL (31.5-36.5); Mean Corpuscular Volume 92 fL (80-100); Mean Platelet Volume 10.5 fL (9.1-12.4); Platelet Count 127 K/mm3 (150-400); RDW Standard Deviation 50.2 fL (35.1-46.3); Red Blood Cell Count 2.97 M/mm3 (3.80-5.20); White Blood Cell Count 4.88 K/mm3 (4.00-11.30)
[2022-01-08 16:40] LABS: Base Excess Venous 3.8 mmol/L; Bicarbonate Venous 27.9 mmol/L (24.0-30.0); PCO2 Venous 31.4 mmHg (38-42); PO2 Venous 163 mmHg (38-42); pH Blood Venous 7.53 (7.34-7.37)
--- NOTE | 2022-01-08 17:10 | NUR ---
PT TRANSFERED TO [facility] 7 AT 1700. GAVE REPORT TO ELROY IN U FPOR TRANSFER.
[2022-01-08 17:16] LABS: Albumin, Blood 2.4 g/dL (3.4-5.0); Albumin/Globulin Ratio 0.7 (0.8-1.8); Bilirubin, Total 0.6 mg/dL (0.1-1.0); Bun/Creatinine Ratio 17.8 (12.0-20.0); Calcium, Blood 8.2 mg/dL (8.5-10.1); Creatinine, Blood 2.13 mg/dL (0.40-1.00); Globulin, Blood 3.5 g/dL (2.2-4.0); Potassium, Blood 3.9 mmol/L (3.5-5.5); Total Protein, Blood 5.9 g/dL (6.4-8.2)
--- NOTE | 2022-01-08 17:16 | NUR ---
SUMMARY FOR PARTIAL SHIFT CARE- PT PAINFUL BUT MODERATELY RESPONSIVE AT BEGINNING OF SHIFT. PT ABLE TO VOID IN BEDPAN AND SWALLOW MEDICATION ONCE NPO REMOVED, WITH APPLESAUCE. PT PROGRESSIVELY WEAKER ONCE ATTEMPTING TO GET UP TO BEDSIDE SHALA. PT DEMOSTRATED WEAKNESS WHILE STANDING, RIGHT SIDE FAVORED. PT THEN REMAINED BEDFAST. PT APPETITE POOR. PT PROGRESSIVELY REDUCED RESPONSIVENESS THROUGHOUT AFTERNOON. PT SPIKED FEVER OF 104, DR NOTIFIED. ICE PACKS AND TYNENOL APPIED, PER EMAR. PT FAMILY AT BEDSIDE THROUGH DAY. PT TRANSFERRED TO PCU 7, REPORT GIVEN TO CLOCK ASSEMBLERELROY. TRANSFERRED AT 1700.
[2022-01-08 17:36] LABS: BAND PERCENT MAN 7 % (0-8); BASOPHILS PERCENT MAN 0 % (0-2); EOSINOPHILS PERCENT MAN 0 % (0-6); LYMPHOCYTES ABSOLUTE MAN 0.04 K/mm3 (0.84-5.20); LYMPHOCYTES PERCENT MAN 1 % (21-46); MONOCYTES ABSOLUTE MAN 0.09 K/mm3 (0.16-1.47); MONOCYTES PERCENT MAN 2 % (4-13); NEUTROPHILS ABSOLUTE MAN 4.73 K/mm3 (1.96-9.15); SEG NEUTROPHILS PERCENT MAN 90 % (41-73); TOTAL CELLS COUNTED 100
[2022-01-08 18:17] LABS: Source, Urine Foley catheter
[2022-01-08 18:34] LABS: Appearance, Urine Hazy (Clear); Bilirubin, Urine Neg (Neg); Blood, Urine 1+ (Neg); Color, Urine Yellow (P-Yellow); Glucose Qualitative, Urine Neg (Neg); Ketones, Urine Neg (Neg); Leukocyte Esterase, Urine 3+ (Neg); Nitrite, Urine Neg (Neg); Protein, Urine 2+ (Neg); Urobilinogen, Urine NORM (Normal)
[2022-01-08 18:51] LABS: Bacteria Many /hpf; Squamous Epithelial Cells Many /hpf (Few); White Blood Cells, Urine 25-50 /hpf (0-5)
[2022-01-08 18:52] LABS: Granular Casts 0-2 /lpf (0); Hyaline Casts 0-2 /lpf (0-2)
[2022-01-08 18:55] LABS: Influenza A, PCR NEGATIVE (NEGATIVE); Influenza B, PCR NEGATIVE (NEGATIVE); Resp Syncytial Virus, PCR NEGATIVE (NEGATIVE); SARS-Cov-2 (COVID-19) PCR, MMC NEGATIVE (NEGATIVE)
--- NOTE | 2022-01-08 19:36 | NUR ---
TRANSFER/SHIFT SUMMARY: PATIENT TRANSFER FROM MEDICAL FLOOR. UPON ARRIVAL VERY LETHARGIC AND MINIMAL RESPONSE. PATIENT SAYING YES/NO AND OPENING EYES BRIEFLY. HARD TO UNDERSTAND. NOT SAFE TO SWALLOW AT THIS TIME. ORDERS TO HOLD ALL MEDS TONIGHT, PER DR. SAIGAL. PALOMINO. NOT FOLLOWING COMMANDS. ON 3L NASAL CANNULA SATING LOW 90'S. CPAP AT BEDSIDE, WEARING [facility] WITH 3L BLEED IN AT BASELINE. LUNG SOUNDS DIMINISHED. TELE SHOWING SINUS RHYTHM WITH HR 70-80'S. STRONG RADIAL AND PEDAL PULSES. PER , HE STATES PATIENT LOWER LEGS LOOK MORE SWOLLEN THAN NORMAL. HARLEY CATH PLACED AND UA SENT TO LAB. DRAINING YELLOW URINE TO GRAVITY. BOWEL TONES PRESENT. 24 URINE COLLECTED AND WALKED UP TO LAB. TEMP TRENDING IN RIGHT DIRECTION. UPON LAST CHECK 100.8. ICE PACKS AND FAN IN PLACE. ANTIBIOTICS INFUSED. POWER GLIDE PLACED. SALINE LOCKED AT THIS TIME. NOT SAFE TO SWALLOW AT THIS TIME DUE TO LETHERGY AND DECREASED MENTATION. CALL LIGHT IN REACH. AT BEDSIDE. ORIENTED TO ROOM AND UNIT. BED IN LOW LOCKED POSITION. BP STABLE AT THIS TIME. REPORTED OFF TO [facility] NURSE SANTOS.
[2022-01-09 01:43] LABS: Base Excess Venous 2.4 mmol/L; Bicarbonate Venous 26.2 mmol/L (24.0-30.0); PCO2 Venous 42.5 mmHg (38-42); PO2 Venous 53.4 mmHg (38-42); pH Blood Venous 7.41 (7.34-7.37)
[2022-01-09 01:58] LABS: Hematocrit 26.4 % (33.0-51.0); Hemoglobin 8.5 g/dL (11.5-16.0); Mean Corpuscular HGB 29.2 pg (26.0-34.0); Mean Corpuscular HGB Conc 32.2 g/dL (31.5-36.5); Mean Corpuscular Volume 91 fL (80-100); Mean Platelet Volume 10.9 fL (9.1-12.4); Platelet Count 118 K/mm3 (150-400); RDW Coefficient Variation 14.9 % (11.7-14.2); Red Blood Cell Count 2.91 M/mm3 (3.80-5.20); White Blood Cell Count 3.64 K/mm3 (4.00-11.30)
[2022-01-09 02:06] LABS: Alanine Aminotransfer (ALT/SGP 19 U/L (12-78); Albumin, Blood 2.6 g/dL (3.4-5.0); Albumin/Globulin Ratio 0.7 (0.8-1.8); Alk Phos 82 U/L (50-136); Anion Gap 9 mmol/L (6-16); Aspartate Aminotrans (AST/SGOT 67 U/L (12-37); Bilirubin, Total 0.6 mg/dL (0.1-1.0); Blood Urea Nitrogen 46 mg/dL (8-24); Bun/Creatinine Ratio 19.9 (12.0-20.0); CO2, Blood 28 mmol/L (21-32); Calcium, Blood 8.2 mg/dL (8.5-10.1); Chloride, Blood 100 mmol/L (98-108); Creatinine, Blood 2.31 mg/dL (0.40-1.00); Globulin, Blood 3.5 g/dL (2.2-4.0); Glomerular Filtration Rate 21 (60-); Glucose, Blood 171 mg/dL (70-99); Magnesium, Blood 1.9 mg/dL (1.6-2.4); Phosphorus, Blood 3.2 mg/dL (2.5-4.9); Potassium, Blood 3.6 mmol/L (3.5-5.5); Sodium, Blood 137 mmol/L (136-145); Total Protein, Blood 6.1 g/dL (6.4-8.2); Vancomycin, Random 15.8 ug/mL
[2022-01-09 02:19] LABS: BAND PERCENT MAN 15 % (0-8); BASOPHILS ABSOLUTE MAN 0.03 K/mm3 (0.00-0.23); BASOPHILS PERCENT MAN 1 % (0-2); EOSINOPHILS PERCENT MAN 0 % (0-6); LYMPHOCYTES ABSOLUTE MAN 0.14 K/mm3 (0.84-5.20); LYMPHOCYTES PERCENT MAN 4 % (21-46); MONOCYTES ABSOLUTE MAN 0.14 K/mm3 (0.16-1.47); MONOCYTES PERCENT MAN 4 % (4-13); MYELOCYTE ABSOLUTE MAN 0.03 K/mm3 (0.00-0.00); MYELOCYTE PERCENT MAN 1 % (0-0); NEUTROPHILS ABSOLUTE MAN 3.27 K/mm3 (1.96-9.15); SEG NEUTROPHILS PERCENT MAN 75 % (41-73); TOTAL CELLS COUNTED 100
--- NOTE | 2022-01-09 05:17 | NUR ---
NOC SHIFT SUMMARY ASSUMED CARE OF PATIENT AT 1919. ASSESSMENT COMPLETED @ 1944. PT OBTUNDED, R GAZE DEVIATION, NONVERBAL AND NOT FOLLOWING COMMANDS. DR. JOSEE QUIÑONES MD NOTIFIED OF ABOVE FINDINGS AND CONCERN FOR STROKE R/O. VSS, ON 3L NC DR. QUIÑONES ORDERED HEAD CT AND STATES WILL SEE PATIENT SHORTLY. 2039 - HEAD CT COMPLETED. 2099- MD AT BEDSIDE TO EVALUATE PATIENT. ORDERS FOR [place] TYLENOL FOR FEVER AND NOTIFY OF CT RESULTS WHEN AVAILABLE. 2199 - NOTIFIED DR. QUIÑONES OF NEGATIVE HEAD CT. NO NEW ORDERS. 2349 - NOTED PT DESATURATION TO LOW 80S ON MONITOR. ENTERED ROOM TO FIND BROWN EMESIS ALL OVER PATIENT CHIN AND CHEST. RAISED HOB, ATTACHED WALL SUCTION. ENCOURAGED COUGH, INCREASED O2 TO 6L WITH SATS IN MID 90S. MD NOTIFIED AND RT TO BEDSIDE. PT COUGHING SPONTANEOUSLY BUT NOT FOLLOWING COMMANDS. CRACKLES NOTED IN MID L AND LOWER L LOBES. CXR ORDERED PER MD. 309 - NOTIFIED DR. QUIÑONES OF + BC X2 FOR GRAM NEG COCCI IN CLUSTERS WELL LOW UOP OVERNIGHT AND INCREASE IN CREATININE W/AM LABS. VBG RESULTED. PER MD OK TO PLACE ON CPAP. PT REMAINING STABLE ON 6L NC OR CPAP OVERNIGHT. WILL PASS ON TO DAY RN.
--- NOTE | 2022-01-09 12:32 | NUR ---
AM NOTE: PATIENT ABLE TO OPEN EYES TO SOUND. ABLE TO TELL THIS RN: NAME, , FAMILY MEMBERS NAME AND ANSWER YES AND NO QUESTIONS. VERY LETHERGIC AND SLEEPY. NOT ABLE TO STAY AWAKE FOR LONG PERIODS OF TIME. ABLE TO MOVE ALL EXTREMITIES. HELPING WITH TURNS. COMPLAINS OF RIGHT HIP PAIN DUE TO ARTHRITIS. Q2 TURNING AND NEEDED. FLOATING HIPS WITH PILLOWS. ON 3-4 L NASAL CANNULA SATING MID 90'S. HOME CPAP ON STANBY AT BEDSIDE. LUNGS SOUNDING CLEAR AND DIM IN BASES. NO COUGH. TELE SHOWING SINUS RHYTHM WITH HR 70'S. DENIES CHEST PAIN/PRESSURE. BP STABLE. BLE EDEMA. DENIES ABDOMINAL PAIN/NAUSEA. HARLEY CATH IN PLACE DRAINING TO GRAVITY. RECTAL TEMP PROBE IN PLACE. SPEECH THERAPY IN THIS AM, SEE ORDERS. PILLS CRUSHED WITH APPLESAUCE, TAKING SMALL SIPS OF WATER. NOT AWAKE ENOUGH TO EAT SAFELY AT LUNCH. TMAX 101.9. TYLENOL SUPPOSITORY IN PLACE. ICE PACKS AND FAN IN PLACE. SPOKE WITH DR. BLOUNT AND DR. VALDOVINOS THIS AM REGARDING CT RESULTS AND PLAN MOVING FORWARD. THIS RN TO MONITOR BP AND MENTATION CLOSELY. CALL LIGHT IN REACH. AT BEDSIDE. PLAN FOR CTA OF HEAD THIS AFTERNOON. ECHO IN AM ALONG WITH CARDIOLOGY CONSULT. WILL CONTINUE TO MONITOR.
--- NOTE | 2022-01-09 14:15 | NUR ---
UPDATE: PATIENT BACK FROM CTA. THIS RN CONCERNED ABOUT PATIENT MENTATION. CALL PLACED TO DR. BLOUNT. DR BLOUNT IN TO ASSESS. ORDERS TO CONTINUE WITH TYLENOL FOR ELEVATED TEMP. PATIENT SEEMS MORE ALTERED WHEN TEMP IS ELEVATED. TYLENOL GIVEN. ICE PACKS, COLD WASH CLOTHS, AND FAN IN PLACE. BP STABLE AT THIS TIME. AT BESIDE. ECHO BEING DONE AT THIS TIME.
--- NOTE | 2022-01-09 18:00 | NUR ---
SHIFT SUMMARY: SEE PREVIOUS NOTES FOR UPDATES THROUGHOUT DAY. PATIENT AT THIS TIME REMAINS LETHARGIC AND AT TIMES OBTUNDED. MENTATION IMPROVING THIS EVENING TEMPERATURE IMPROVES. TMAX 102.5. TYLENOL Q4. THIS AM PATIENT ALERT ENOUGH TO PARTICIPATE IN SPEECH THERAPY AND TAKE PILLS CRUSHED WITH APPLESAUCE. ABLE TO TAKE TYLENOL PO AND OTHERS DE. ABLE TO MOVE EXTREMITIES AND HELP WITH TURNS. COMPLAINS OF RIGHT HIP PAIN, LIDOCAINE PATCH IN PLACE. Q2 TURNING AND NEEDED. REMAINS ON 3-4L NASAL CANNULA, AT TIMES NEEDING IN MOUTH DUE TO MOUTH BREATHING. CPAP AT BEDSIDE. TELE SHOWING SINUS RHYTHM WITH HR 60'S. BP SOFT WITH MAPS RANGING FROM 58-60'S. DR. BLOUNT NOTIFIED. ORDERS TO HOLD ALL BP LOWERING MEDS TONIGHT, THIS RN CHARTED THEM NOT GIVEN. ORDERS TO INFUSE LR AT 125 ML/HR AT ONE BAG. INFUSING AT THIS TIME. TEMP TRENDING IN RIGHT DIRECTION, ICE PACKS REMAIN IN PLACE. REMAINS AT BEDSIDE. CALL LIGHT IN REACH. WILL REPORT OFF TO ONCOMING RN. ECHO COMPLETED THIS SHIFT, RESULTS PENDING.
[2022-01-10 04:17] LABS: Hematocrit 24.2 % (33.0-51.0); Hemoglobin 7.7 g/dL (11.5-16.0); Mean Corpuscular HGB 28.8 pg (26.0-34.0); Mean Corpuscular HGB Conc 31.8 g/dL (31.5-36.5); Mean Corpuscular Volume 91 fL (80-100); Mean Platelet Volume 11.9 fL (9.1-12.4); Platelet Count 95 K/mm3 (150-400); RDW Coefficient Variation 15.2 % (11.7-14.2); RDW Standard Deviation 50.6 fL (35.1-46.3); Red Blood Cell Count 2.67 M/mm3 (3.80-5.20); White Blood Cell Count 2.94 K/mm3 (4.00-11.30)
[2022-01-10 04:38] LABS: Albumin, Blood 2.3 g/dL (3.4-5.0); Anion Gap 11 mmol/L (6-16); Blood Urea Nitrogen 67 mg/dL (8-24); Bun/Creatinine Ratio 21.1 (12.0-20.0); CO2, Blood 26 mmol/L (21-32); Calcium, Blood 8.1 mg/dL (8.5-10.1); Chloride, Blood 100 mmol/L (98-108); Creatinine, Blood 3.17 mg/dL (0.40-1.00); Glomerular Filtration Rate 14 (60-); Glucose, Blood 124 mg/dL (70-99); Magnesium, Blood 2.2 mg/dL (1.6-2.4); Phosphorus, Blood 4.8 mg/dL (2.5-4.9); Potassium, Blood 3.7 mmol/L (3.5-5.5); Sodium, Blood 137 mmol/L (136-145); Vancomycin, Random 19.9 ug/mL
[2022-01-10 04:42] LABS: BAND PERCENT MAN 19 % (0-8); BASOPHILS PERCENT MAN 0 % (0-2); EOSINOPHILS PERCENT MAN 0 % (0-6); LYMPHOCYTES PERCENT MAN 7 % (21-46); MONOCYTES ABSOLUTE MAN 0.14 K/mm3 (0.16-1.47); MONOCYTES PERCENT MAN 5 % (4-13); NEUTROPHILS ABSOLUTE MAN 2.58 K/mm3 (1.96-9.15); SEG NEUTROPHILS PERCENT MAN 69 % (41-73); TOTAL CELLS COUNTED 100
--- NOTE | 2022-01-10 05:35 | NUR ---
NOC SHIFT SUMMARY ASSUMED CARE OF PT @1900. PT ORIENTED X2-4 OVERNIGHT, AWAKENS TO VOICE. DELAYED RESPONSES AND OCCASIONALLY SLURRED SPEECH. LUNGS DIM W/FINE CRACKLES IN BASES. ON 4L NC OR CPAP. NOTIFIED DR. NURIA MD OF MAPS 58-61 AND VERY LITTLE UOP VIA HARLEY. ORDER FOR ADDITIONAL BAG OF LR @ 125. MAPS INCREASED TO 66. SB/SR ON TELEMETRY. NOTIFIED DR. QUIÑONES @ 0500 ABOUT TOTAL UOP OF 50ML VIA HARLEY, CR 3.17/GFR 14 W/AM LABS. ALSO NOTIFIED OF PT COMPLAINTS OF HEADACHE. NO FURTHER ORDERS AT THIS TIME. WILL CONTINUE TO MONITOR CLOSELY AND PASS ON TO DAY RN
--- NOTE | 2022-01-10 18:17 | NUR ---
SHIFT SUMMARY: NO ACUTE CHANGES T/OUT SHIFT. PT W/PERIODS OF ALERTNESS BUT MOSTLY LETHARGIC, ORIENTED x3. PT COOPERATIVE W/CARE, ANSWERS QUESTIONS BUT OFTEN W/A DELAYED RESPONSE. PT AFEBRILE T/OUT SHIFT. CURRENTLY MAINTAINING O2 SATS >92% ON BASELINE O2 OF 3 L/MIN. SR ON MONITOR. BP STABLE W/MAP MAINTAINED >70. PT PARTICIPATES WITH REASSESSMENT BY SPEECH THERAPY, DIET ADVANCED TO [facility] SOFT BUT W/MEDS CRUSHED IN APPLESAUCE. CERTAIN MEDS HELD D/TO NOT BEING CRUSHABLE, VERIFIED W/PHARMACY AND MD MADE AWARE. MINIMAL U.O. VIA HARLEY CONTINUES. IV FLUID INFUSION COMPLETE AT THIS TIME W/NO CURRENT ORDERS FOR MORE. PT FOUND TO [place]/ATTEMPT TO REPOSITION OFTEN W/ C/O R HIP PAIN. EMAR MEDICATIONS ALREADY IN PLACE, HEAT THERAPY ADDED THIS AFTERNOON AND APPEARS TO BE HELPING. AT THIS TIME PT RESTING QUIETLY IN BED, CALL LIGHT WITHIN REACH. WILL CONTINUE TO MONITOR AND TREAT ACCORDINGLY UNTIL CHANGE OF SHIFT.
[2022-01-11 05:01] LABS: BASOPHILS ABSOLUTE AUTO 0.01 K/mm3 (0.00-0.23); BASOPHILS PERCENT AUTO 0 % (0-2); EOSINOPHILS ABSOLUTE AUTO 0.03 K/mm3 (0.00-0.68); EOSINOPHILS PERCENT AUTO 1 % (0-6); Hematocrit 27.1 % (33.0-51.0); Hemoglobin 8.6 g/dL (11.5-16.0); IMMATURE GRAN ABSOLUTE AUTO 0.08 K/mm3 (0.00-0.10); IMMATURE GRAN PERCENT AUTO 2 % (0-1); LYMPHOCYTES ABSOLUTE AUTO 0.38 K/mm3 (0.84-5.20); LYMPHOCYTES PERCENT AUTO 8 % (21-46); MONOCYTES ABSOLUTE AUTO 0.34 K/mm3 (0.16-1.47); MONOCYTES PERCENT AUTO 7 % (4-13); Mean Corpuscular HGB 29.2 pg (26.0-34.0); Mean Corpuscular HGB Conc 31.7 g/dL (31.5-36.5); Mean Corpuscular Volume 92 fL (80-100); Mean Platelet Volume 12.5 fL (9.1-12.4); NEUTROPHILS ABSOLUTE AUTO 3.77 K/mm3 (1.96-9.15); NEUTROPHILS PERCENT AUTO 82 % (41-73); Platelet Count 118 K/mm3 (150-400); RDW Coefficient Variation 15.1 % (11.7-14.2); RDW Standard Deviation 50.3 fL (35.1-46.3); Red Blood Cell Count 2.95 M/mm3 (3.80-5.20); White Blood Cell Count 4.61 K/mm3 (4.00-11.30)
[2022-01-11 05:28] LABS: Albumin, Blood 2.4 g/dL (3.4-5.0); Anion Gap 11 mmol/L (6-16); Blood Urea Nitrogen 77 mg/dL (8-24); Bun/Creatinine Ratio 22.5 (12.0-20.0); CO2, Blood 25 mmol/L (21-32); Calcium, Blood 8.8 mg/dL (8.5-10.1); Chloride, Blood 100 mmol/L (98-108); Creatinine, Blood 3.42 mg/dL (0.40-1.00); Glomerular Filtration Rate 13 (60-); Glucose, Blood 168 mg/dL (70-99); Magnesium, Blood 2.6 mg/dL (1.6-2.4); Phosphorus, Blood 6.1 mg/dL (2.5-4.9); Potassium, Blood 3.9 mmol/L (3.5-5.5); Sodium, Blood 136 mmol/L (136-145); Vancomycin, Random 16.7 ug/mL
--- NOTE | 2022-01-11 07:19 | NUR ---
NOC SHIFT SUMMARY PT SLEPT POORLY. ORIENTED X4, DELAYED RESPONSES. ALYSSA. SB/SR ON TELEMETRY. COMPLAINTS OF R HIP PAIN WITH NO RELIEF WITH AVAILABLE PRNS, HEATING PAD, OR REPOSITIONING. DR. NURIA MD NOTIFIED AND PRNS RECEIVED (SEE EMAR FOR DETAILS). 0600 - PT TAKING OFF NC CONSISTENTLY AND NOT BREATHING THROUGH NOSE. DESATS INTO 80S. CPAP PLACED W/10L BLEED THRU - RT CALLED AND TITRATED DOWN TO 5L BLEED THRU TO MAINTAIN SATS. WILL PASS ON TO DAY RN.
[2022-01-11 09:20] LABS: Albumin, Blood 2.3 g/dL (3.4-5.0); Albumin/Globulin Ratio 0.5 (0.8-1.8); Bilirubin, Direct 0.2 mg/dL (0.0-0.3); Bilirubin, Indirect 0.3 mg/dL (0.1-0.7); Bilirubin, Total 0.5 mg/dL (0.1-1.0); Globulin, Blood 4.2 g/dL (2.2-4.0); Total Protein, Blood 6.5 g/dL (6.4-8.2)
--- NOTE | 2022-01-11 10:07 | NUR ---
AM NOTES: PT ALERT AND ORIENTED X3, MOSTLY LETHARGIC CAN CONVERSE BUT DUE TO CAN ONLY ANSWER CLOSE ENDED QUESTIONS. SPOUSE AT THE BEDSIDE SINCE SHIFT CHANGE. VITALS HRR SR 70'S, BP SYSTOLIC 118-160'S, UNABLE TO TOLERATE NASAL CANNULA THIS MORNING DR VALDOVINOS AT BEDSIDE WHEN PT WAS SWITCHED TO NASAL CANNULA FOR MED ADMINISTRATION PT DESATS TO LOW 70'S O2 TURNED UP TO 12L FOR PT TO RECOVER, PO MEDS HELD DUE TO BREATHING ISSUES PROVIDER AWARE. PT THEN REALLY GOT SHORT OF BREATH KEEPS SAYING "OH MY GOSH CAN'T BREATHE" PT THEN PLACED BACK ON CPAP 7L O2 BLEED SATS KEPT ABOVE 90%. DR LABOY SAW PT TODAY BUMEX 4MG AND 125MG IV SOLUMEDROL WAS GIVEN. PT STILL NOT MAKING MUCH OF URINE OUTPUT. PT HAS RIGHT HIP PAIN LIDOCAINE PATCH APPLIED AND HEATING PAD IN PLACE. PT CURRENTLY TAKEN TO IMAGING FOR ABD/CHEST XRAY. WILL CONTINUE TO MONITOR PT
[2022-01-11 11:20] LABS: Base Excess Venous -2.8 mmol/L; Bicarbonate Venous 21.7 mmol/L (24.0-30.0); PCO2 Venous 52.1 mmHg (38-42); pH Blood Venous 7.27 (7.34-7.37)
[2022-01-11 15:41] LABS: Base Excess Venous -3.3 mmol/L; Bicarbonate Venous 21.8 mmol/L (24.0-30.0); PCO2 Venous 43.9 mmHg (38-42); pH Blood Venous 7.32 (7.34-7.37)
--- NOTE | 2022-01-11 17:54 | NUR ---
PT SUMMARY: SEE AM NOTES. PT WAS SWITCHED TO BIPAP M SERIES SETTINGS 20/12 WITH 7L O2 BLEED FROM CPAP. VBG OBTAINED FOR BASELINE PH CRITICAL LOW AT 7.27 WENT UP TO 7.32 AFTER 3-4 HRS OF BEING ON BIPAP, PT WITH LESS EFFORT BREATHING WITH BIPAP THAN CPAP, PT ALSO FINALLY WAS ABLE TO REST, SATS MAINTAINED ABOVE 90%, CAN TOLERATE 8L OF O2 VIA OXYMIZER NOT LONGER THAN 15 MINS DUE TO . VITALS HRR SR 60-70'S, BP SYSTOLIC ELEVATED ALL SHIFT 140-190'S, WAS GIVEN IV BP MEDS LABETALOL AND HYDRALAZINE PRN SEE BP TRENDS. ATTEMPTED TO GIVE CLONIDINE PO CRUSHED IN TEASPOON OF WATER PER DR VALDOVINOS'S RECOMMENDATION AT SECOND SIP OF WATER PT STARTED COUGHING AND ASPIRATE ON FLUIDS, PT KEPT NPO FOR NOW PROVIDER AWARE. PT HAD ONLY 200 MLS URINE OUTPUT FOR THE SHIFT DR LABOY MADE AWARE WAS GIVEN 4MG BUMEX IV THIS AM AND THEN ANOTHER DOSE 5MG BUMEX GIVEN THIS AFTERNOON. FAMILY AT BEDSIDE AWARE OF THE PLAN OF PT'S STATUS. DR BLOUNT WAS ABLE TO DISCUSS WITH THE ABOUT CODE STATUS, PT SWITCHED TO LIMITED CODE INTUBATION ONLY. SCD'S ORDERED PER DVT PROPHYLAXIS DR VALDOVINOS MADE AWARE ABOUT PT'S HX STENOSIS AND STENTS ON LEGS PER PT'S , NOT APPLICABLE TO PT AT THIS TIME. PT HAS BEEN ON THE BIPAP ALL SHIFT LESS RESPONSIVE AND RESTLESS IN BED, REPOSITONED IN BED FOR COMFORT, HEATING PAD IN RIGHT HIP FOR PAIN, NO IV NARCOTICS FOR NOW. NO OTHER ISSUES REPORTED, WILL REPORT TO ONCOMING SHIFT
[2022-01-12 04:59] LABS: BASOPHILS ABSOLUTE AUTO 0.01 K/mm3 (0.00-0.23); BASOPHILS PERCENT AUTO 0 % (0-2); EOSINOPHILS PERCENT AUTO 0 % (0-6); Hemoglobin 9.1 g/dL (11.5-16.0); IMMATURE GRAN ABSOLUTE AUTO 0.08 K/mm3 (0.00-0.10); IMMATURE GRAN PERCENT AUTO 1 % (0-1); LYMPHOCYTES ABSOLUTE AUTO 0.43 K/mm3 (0.84-5.20); LYMPHOCYTES PERCENT AUTO 7 % (21-46); MONOCYTES ABSOLUTE AUTO 0.59 K/mm3 (0.16-1.47); MONOCYTES PERCENT AUTO 10 % (4-13); Mean Corpuscular HGB 29.3 pg (26.0-34.0); Mean Corpuscular HGB Conc 32.5 g/dL (31.5-36.5); Mean Corpuscular Volume 90 fL (80-100); Mean Platelet Volume 11.9 fL (9.1-12.4); NEUTROPHILS PERCENT AUTO 81 % (41-73); Platelet Count 166 K/mm3 (150-400); RDW Coefficient Variation 15.2 % (11.7-14.2); RDW Standard Deviation 50.3 fL (35.1-46.3); Red Blood Cell Count 3.11 M/mm3 (3.80-5.20); White Blood Cell Count 5.91 K/mm3 (4.00-11.30)
[2022-01-12 05:19] LABS: Albumin, Blood 2.4 g/dL (3.4-5.0); Anion Gap 12 mmol/L (6-16); Blood Urea Nitrogen 97 mg/dL (8-24); Bun/Creatinine Ratio 30.6 (12.0-20.0); CO2, Blood 24 mmol/L (21-32); Calcium, Blood 9.1 mg/dL (8.5-10.1); Chloride, Blood 101 mmol/L (98-108); Creatinine, Blood 3.17 mg/dL (0.40-1.00); Glomerular Filtration Rate 14 (60-); Glucose, Blood 131 mg/dL (70-99); Magnesium, Blood 2.5 mg/dL (1.6-2.4); Phosphorus, Blood 6.2 mg/dL (2.5-4.9); Potassium, Blood 3.9 mmol/L (3.5-5.5); Sodium, Blood 137 mmol/L (136-145); Vancomycin, Random 14.8 ug/mL
--- NOTE | 2022-01-12 05:45 | NUR ---
NOC SHIFT SUMMARY ASSUMED CARE OF PT @1900. PT ORIENTED X3-4 OVERNIGHT, AWAKENS TO VOICE. DELAYED RESPONSES AND OCCASIONALLY SLURRED SPEECH. LUNGS DIM/TIGHT IN BASES. ON 4L NC VIA BIPAP CONTINOUSLY. COMPLAINTS OF R FOOT AND LEG PAIN. RESTLESS. PRN TYLENOL GIVEN WITH LITTLE RELIEF. REPOSITIONED AND APPLIED HEAT. HARLEY W/325 ML URINE OUTPUT OVERNIGHT. PT NPO DUE TO ASPIRATION CONCERNS AND BIPAP DEPENDENCY. SYSTOLIC BPS IN 140-180S OVERNIGHT. NOTIFIED MD OF POOR CONTROL OF BP AT START OF SHIFT. ALTERNATING HYDRALIZINE AND LABETALOL FOR SBP LESS THAN 160. WILL CONTINUE TO MONITOR AND REPORT TO DAY RN
--- NOTE | 2022-01-12 11:13 | NUR ---
AM NOTE: PT REMAINED LETHARGIC, RESTLESS IN BED MOANS AT TIMES, CAN STATE NAME SPEECH GARBLED DUE TO BIPAP MASK, DEPENDENT ON BIPAP SETTINGS 20/12 6L O2 BLEED SATS 90-92%, ATTEMPTED DOING ORAL CARE THIS MORNING PT DESATS AND WOULD GASP BREATHING, AT BEDSIDE. BPSYSTOLIC ELEVATED 170-200'S, IV BP MEDS GIVEN HYDRALAZINE TOTAL OF 40MG SINCE THIS AM AND LABETALOL 30MG IV PT WAS ALSO STARTED ON CLONIDINE PATCH PROVIDERS WERE GIVEN UPDATES ON BLOOD PRESSURES, MANUAL BP TAKEN 196/58, DR LABOY ORDERED 5MG IV BUMEX, 125MG IV SOLUMEDROL AND ALBUMIN 12.5MG IV. PT PUT OUT 150MLS URINE SINCE THIS AM. TO START PT ON BLOOD PRESSURE GTT AND EVENTUALLY TRASNFER TO ICU. WILL GIVE UPDATE TO
--- NOTE | 2022-01-12 11:51 | NUR ---
ASSUMPTION OF CARE RECEIVED REPORT FROM BUD RN, PATIENT ARRIVED VIA BED AT 1145. ON BIPAP SETTINGS /, 6L 02 BLEED IN SP02 93%. PATIENT AWAKE, MOANING, NO VERBAL RESPONSE. PURPOSEFULY MOVING EXTREMITIES. HYPERTENSIVE UPON ARRIVAL, WILL REVIEW ORDERS AND TREAT PRESCRIBED.
--- NOTE | 2022-01-12 17:55 | NUR ---
SHIFT SUMMARY PATIENT TRANSFERRED FROM PCU FOR NICARDIPINE DRIP. ON BIPAP 20/12 WITH 6L 02 BLEED IN SATS ABOVE 90%. TEN MINUTE BREAK GIVEN OFF BIPAP, ON 10L OXIMIZER WITH SATS MAINTAINING ABOVE 95%. SIPS OF WATER GIVEN BY SPOON, PATIENT TOLERATED WELL. GEL PAD PLACED TO NOSE WHEN BIPAP PLACED. NICARDIPINE AT 7MG/HR TO KEEP SBP BELOW 160. REPORTED PATIENT'S UO TO DR. LABOY AT 1500 AND ORDERED BUMEX WELL INCREASED CLONIDINE PATCH DOSE. HARLEY CATHETER IN PLACE PATENT AND DRAINING CLEAR, ROLAND URINE. WOUNDS TO BUTTOCKS ASSESSED AND PROTECTIVE DRESSINGS APPLIED. PATIENT REPOSITIONED FREQUENTLY, PATIENT WILL SLIDE SELF DOWN IN BED AND LEANS TOWARDS LEFT SIDE. WHEN REPOSITIONED TOWARDS THE RIGHT SIDE, PATIENT'S REMOVED PILLOWS STATING SHE IS TOO UNCOMFORTABLE TO TURN TO THE RIGHT SIDE. WILL CONTINUE TO MONITOR AND TREAT PRESCRIBED.
[2022-01-13 05:31] LABS: Hematocrit 28.7 % (33.0-51.0); Hemoglobin 9.1 g/dL (11.5-16.0)
[2022-01-13 05:45] LABS: Albumin, Blood 2.5 g/dL (3.4-5.0); Anion Gap 15 mmol/L (6-16); Blood Urea Nitrogen 108 mg/dL (8-24); Bun/Creatinine Ratio 41.1 (12.0-20.0); CO2, Blood 22 mmol/L (21-32); Calcium, Blood 9.2 mg/dL (8.5-10.1); Chloride, Blood 103 mmol/L (98-108); Creatinine, Blood 2.63 mg/dL (0.40-1.00); Glomerular Filtration Rate 18 (60-); Glucose, Blood 175 mg/dL (70-99); Magnesium, Blood 2.5 mg/dL (1.6-2.4); Phosphorus, Blood 6.1 mg/dL (2.5-4.9); Potassium, Blood 3.7 mmol/L (3.5-5.5); Sodium, Blood 140 mmol/L (136-145); Vancomycin, Random 12.3 ug/mL
--- NOTE | 2022-01-13 06:32 | NUR ---
SHIFT SUMMERY PT IS ON BIPAP 02/09 AND HAS REQUIRED AN INCREASE IN OXYGEN OVERNIGHT FROM 6L AT THE BEGINNING OF THE SHIFT TO 15L AT THE CURRENT TIME. PT IS ALERT BUT CONFUSED AT TIMES AND REQUIRES FREQUENT REEDUCATION. HER NEED FOR NICARDIPINE HAS INCREASED THROUGHOUT THE NIGHT WELL. SHE HAS BEEN SR IN THE 90S THROUGHOUT THE NIGHT.
--- NOTE | 2022-01-13 08:00 | NUR ---
PT AWAKE AND ALERT. ORIENTED TO PERSON AND PLACE. PT VERY SLOW TO RESPOND. APPEARS ANXIOUS, YET GENERALLY WEAK. FOLLOWS COMMANDS. ECG SHOWS AFIB WITH RATE 90'S. TITRATING NICARDIPINE DRIP TO SBP<160-TITRATED UP TO 10 MG/HR. LUNGS DIMINISHED AND TIGHT WITH COARSE RHONCHI TO RIGHT UPPER LOBE. PT ON BIPAP 20/12 WITH 10 LITER BLEED IN TO KEEP SATS>90%. PT GIVEN BRIEF BREAK FROM BIPAP FOR ORAL CARE. SATS DROPPED TO 83% IMMEDIATELY. PT HAS BEEN MADE NPO DUE TO RESPIRATORY DISTRESS AND RISK FOR ASPIRATION. PO AM MEDS HAVE BEEN HELD AND HOSPITALIST AWARE. NO NOTED GI DISTRESS. HARLEY TO BSD WITH SMALL AMOUNT OF DARK, YELLOW URINE TO BSD. SKIN IS FRAIL AND EXTREMELY DRY. ABDOMEN WITH SCATTERED BRUISES NOTED. CLONIDINE PATCH MOVED TO RIGHT UPPER ARM. LIDOCAINE PATCH PLACED TO RIGHT HIP. COCCYX/BUTTOCKS WITH SMALL WOUND NOTED. THERE DOES NOT APPEAR TO BE ANY DRAINAGE. SURROUNDING SKIN IS SLIGHTLY PINK, BUT NO SWELLING. CLEANSED WITH SOAP AND WATER AND FOAM DRESSING PLACED. PT REPOSITIONED TO RIGHT SIDE. PT SPOUSE AT BEDSIDE UPDATE GIVEN.
--- NOTE | 2022-01-13 08:38 | NUR ---
SATS TRENDING 85% WITH 15 LITER BLEED IN. NADIYA,RT AWARE. PT BIPAP MACHINE CHANGED OUT. SETTINGS 02/09, RATE 15-FIO2 80% AND SATS>90%
--- NOTE | 2022-01-13 08:55 | NUR ---
SATS TRENDING IN UPPER 90'S-FIO2 TITRATED DOWN TO 70%.
--- NOTE | 2022-01-13 10:00 | NUR ---
SATS>90% ON FIO2 60%. MEPITEL PLACED ON THE BRIDGE OF PT NOSE AND NEW BIPAP MASK PLACED BY NADIYA RT. DRESSING CHANGE COMPLETED TO LEFT UPPER ARM EXTENDED DWELL CATHETER. TOLERATED WELL.
--- NOTE | 2022-01-13 12:00 | NUR ---
PT REQUESTING "SHERBET" AND "TO GET OUT OF BED" PER PT SPOUSE. PT IS ALERT, BUT SHE APPEARS ANXIOUS AND CONFUSED AT TIMES. PT HAS BEEN QUITE RESTLESS. EXPLAINED TO PT AND SPOUSE THAT PT SAFETY IS OUT PRIORITY. AT THIS TIME PT IS BIPAP DEPENDENT AND SHE DESATS WITH MINIMAL EXERTION. THEREFORE, AT THIS TIME IT WOULD NOT BE SAFE TO GIVE FOOD OR FLUIDS BY MOUTH OR TO GET OOB. PT HAS MINIMAL RESERVE AT THIS TIME. ECG CONTINUES AFIB WITH RATE 90'S. SBP TRENDING 160 OR LESS ON NICARDIPINE @ 10 MG/HR. HARLEY OUTPUT DECREASED. URINE APPEARS ROLAND WITH SOME SEDIMENT NOW. PT REPOSITIONED SUPINE -HIGH ANDREW POSITION-EXTREMITIES ELEVATED.
--- NOTE | 2022-01-13 13:46 | NUR ---
Spoke with Primary RN Sabra and discussed case. Pt resting in bed and on BIPAP. Pt's spouse Damian at bedside. Pt remains with her eyes open but does not engage verbally. Offered therapeutic listening as Damian discusses her declining condition. Damian reports having her code status changed to intubation only for Pt to try for a couple of days. Listened as he questions allowing intubation and expresses that he does not think it would help. Continued therapeutic listening and answered questions. Provided "Hard Choices for [place] People" book and encouraged Damian to read. Damian expresses appreciation and reports no other concerns at this time. Palliative Care will remain available.
--- NOTE | 2022-01-13 16:00 | NUR ---
PT LETHARGIC. SHE HAS ATTEMPTED TO NAP, BUT HAS HAD MULTIPLE VISITORS THIS AFTERNOON. PT DENIES PAIN. SHE REMAINS BIPAP DEPENDENT. SATS>90% ON FIO2 45% PT HAS NO RESERVE. SATS DOWN TO 80'S WITH MINIMAL EXERTION. REMAINS NPO. URINE OUTPUT REMAINS DECREASED. DISCUSS PLAN OF CARE WITH PT SPOUSE AT LENGTH. DISCUSSED END OF LIFE ISSUES AND OPTIONS SUCH COMFORT CARE. PT SPOUSE VEBALIZES THAT HE PLANS TO SPEAK WITH HIS ABOUT THESE OPTIONS ONCE ALL THE VISITORS HAVE GONE.
--- NOTE | 2022-01-13 18:24 | NUR ---
PT SATS DOWN TO 80'S WITH POSITION CHANGE. FIO2 INCREASED TO 100% X 5 MINUTES BEFORE SATS>90%. AFTER THE 5 MINUTE RECOVERY, SATS >90% ON FIO2 45%. PT REMAINS QUITE LETHARGIC. SHE IS VERY SLOW TO RESPOND AND ONLY NODS OCCASIONALLY TO ANSWER "YES" OR "NO" QUESTIONS. SBP TRENDING 160'S ON NICARDIPINE @ 10MG/HR. PT SPOUSE REMAINS AT BEDSIDE. HE STATES THAT HE ATTEMPTED TO ADDRESS INTUBATION/COMFORT CARE, BUT PT WAS NOT VERY RESPONSIVE AND DID NOT INTERACT MUCH IN THE CONVERSATION.
--- NOTE | 2022-01-13 19:00 | NUR ---
ASSUMED CARE ASSUMED CARE OF PATIENT. REMAINS ON BIPAP 20/12, BUR 18, FIO2 45%. RESPIRATIONS 20s, UNLABORED. MONITOR SHOWS AFIB, RATE 90s. NICARDIPINE GTT AT 10MG/HR TO MAINTAIN SBP <160. OPENS EYES SPONTANEOUSLY. OCCASIONAL 1 WORD SLOWED RESPONSES TO QUESTIONS. NODS HEAD YES/NO APPROPRIATELY. PT IS ABLE TO ASSIST WITH REPOSITIONING SLIGHLTY. DENIES C/O PAIN OR DISCOMFORT AT THIS TIME. HARLEY PATENT AND DRAINING TO GRAVITY. CAROLEE PG NOTED. SEE SHIFT ASSESSMENT FOR FULL ASSESSMENT.
[2022-01-14 04:33] LABS: Hematocrit 27.2 % (33.0-51.0); Hemoglobin 8.6 g/dL (11.5-16.0)
[2022-01-14 04:49] LABS: Magnesium, Blood 2.6 mg/dL (1.6-2.4)
[2022-01-14 04:50] LABS: Albumin, Blood 2.4 g/dL (3.4-5.0); Anion Gap 8 mmol/L (6-16); Blood Urea Nitrogen 111 mg/dL (8-24); Bun/Creatinine Ratio 51.2 (12.0-20.0); CO2, Blood 27 mmol/L (21-32); Calcium, Blood 8.8 mg/dL (8.5-10.1); Chloride, Blood 108 mmol/L (98-108); Creatinine, Blood 2.17 mg/dL (0.40-1.00); Glomerular Filtration Rate 22 (60-); Glucose, Blood 183 mg/dL (70-99); Phosphorus, Blood 6.2 mg/dL (2.5-4.9); Potassium, Blood 3.9 mmol/L (3.5-5.5); Sodium, Blood 143 mmol/L (136-145)
--- NOTE | 2022-01-14 06:47 | NUR ---
SHIFT SUMMARY NO ACUTE CHANGES DURING NOC. RESTING QUIETLY WHEN UNDISTURBED. ROUSES EASILY TO VERBAL STIMULI. OCCASIONAL 1 WORD SLOW VERBAL RESPONSE. NODS HEAD YES/NO APPROPRIATELY. DENIES C/O PAIN OR DISCOMFORT. 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 MOVES ALL EXTREMITIES WEAKLY. FOLLOWS SIMPLE COMMANDS. REMAINED ON BIPAP 20/12, BUR 18, FIO2 NOW AT 50%. REMAINS NPO. HARLEY PATENT AND DRAINING TO GRAVITY. NICARDIPINE GTT AT 10MG/HR TO MAINTAIN SBP <160. MONITOR SHOWS NSR, RATE 90s THIS AM. AFEBRILE. WILL REPORT TO ONCOMING RN WHEN AVAILABLE.
--- NOTE | 2022-01-14 08:00 | NUR ---
PT QUITE SOMULENT. SHE OPENS HER EYES TO VOICE AND FOLLOWS SOME COMMANDS, BUT APPEARS MUCH WEAKER THAN YESTERDAY. PT NODDED "YES" TO PAIN AND WITH HER SPOUSES HELP, WAS ABLE TO COMMUNICATE THAT IT IS HER RIGHT HIP THAT IS HURTING. LIDOCAINE PATCH PLACED. ECG SHOWS SR WITH RATE IN 90'S. BP TRENDING 160'S WITH NICARDIPINE DRIP @ 10 MG/HR. GENERALIZED EDEMA NOTED. LUNGS VERY TIGHT AND DIMINISHED. NO NOTED COUGH. ORAL MUCOSA IS VERY DRY. NOTED SOME ORANGE SECRETIONS AND DEBRI IN PT MOUTH WHEN ORAL CARE DONE. IT APPEARS THAT SHE MAY HAVE VOMITED A SMALL AMOUNT. NO DEBRIT NOTED IN THE BIPAP MASK. BIPAP CONTINUES 02/09, RATE 18, FIO2 50%. SATS DROPPED TO 79% WHEN PT REPOSITONED. PT HAS ABSULOTELY NO RESERVE. FIO2 UP TO 100% X 10 MINUTES BEFORE SATS RETURNED TO >90%. FIO2 THEN TITRATED DOWN TO 55%. PT REMAINS NPO. NO NOTED ABDOMINAL TENDERNESS WITH PALPATION. HARLEY TO BSD WITH SMALL AMOUNT OF DARK, ROLAND URINE TO BSD. ABDOMINAL BRUISING BEGINNING TO FADE. DRESSING TO COCCYX AND BUTTOCKS CDC. AM CARE DONE, TORRES PAD CHANGED, PT BOOSTED IN BED. HIPS AND HEELS FLOATED. PT SPOUSE UPDATED. PT SPOUSE STATES THAT HE DID READ OVER THE COMFORT CARE BOOKLET. PT SPOUSE VERBALIZING THAT HE IS LEANING TOWARD COMFORT CARE, BUT HE WOULD LIKE TO DISCUSS WITH HOSPITALIST FIRST.
--- NOTE | 2022-01-14 08:45 | NUR ---
AFTER DISCUSSION WITH DR. WHELAN, , AND DYLLAN BHATIA FROM PALLIATIVE CARE-PT MADE DNR AND THE PLAN IS TO TRASITION TO COMFORT CARE THIS AFTER NOON.
--- NOTE | 2022-01-14 10:35 | NUR ---
Received call from Primary RN Sabra reporting Dr Diana has arrived to speak with spouse. Pt resting in bed and on BIPAP. Pt appears weak and tired. Pt's spouse Damian at bedside. Dr Diana provides update and discusses prognosis. Damian reports that Pt should not be intubated and is requesting full DNR status. Damian inquires about comfort care. Gentle education on comfort care philosophy. Therapeutic listening and questions answered. Damian reports plan to place Pt on comfort care later this afternoon to allow additional family members to see Pt. Damian expresses appreciation and reports no other concerns at this time. Palliative Care will remain available.
--- NOTE | 2022-01-14 10:36 | NUR ---
Spiritual Care Visit. Responding to a Spiritual Care request. Pt. is mostly not responsive. Spouse and granddaughter are present. Inquire whether families ([employer]) spiritual leaders are aware of her condition. Spouse verbalized that they have been contacted. Facilitated a life review, and developed rapport with the spouse. Spouse displayed evidence of trust and engagement. Spouse verbalized that a few local family members are en route, and that aftdr they arrive he will let the nursing staff know that comfort care measures can begin. With permission, this non-church night worker prayed for the pt. and family. Spouse verbalized gratitude for the spiritual care visit. This night worker reported to attending and charge nurse, and will remain available as needed.
--- NOTE | 2022-01-14 12:00 | NUR ---
PT BECOMING MORE OBTUNDED. STILL OPENS EYES TO VOICE, BUT FALLS ASLEEP VERY QUICKLY. NOT NODDING OR FOLLOWING COMMANDS AT THIS TIME. PT SURROUNDED BY MULTIPLE FAMILY MEMBERS. DNR BAND PLACED TO RIGHT WRIST. PLAN TO TRANSITION TO COMFORT CARE LATER THIS AFTERNOON.
--- NOTE | 2022-01-14 14:15 | NUR ---
DR. WHELAN IN TO SEE PT AND SPEAK WITH PT SPOUSE. AWAITING THE ARRIVAL OF PT SON AND GRANDDAUGHTER, THEN WILL TRANSITION TO COMFORT CARE. DYLLAN BHATIA FROM PALLIATIVE CARE TO PLACE COMFORT CARE ORDERS.
--- NOTE | 2022-01-14 14:38 | NUR ---
Case Conference Note Spoke with Primary RN Sabra, Dr Diana, and discussed case. Placed comfort care order, comfort care order set, added Ativan 1-2mg IV Q 1 hour PRN for anxiety per V/O from Dr Diana. Plan is to implement comfort care after family member arrives this afternoon. Palliative Care will remain available.
[2022-01-14 15:09] LABS: METANEPHRINE, UR 169 ug/L (Undefined)
--- NOTE | 2022-01-14 15:39 | NUR ---
Supportive visit this afternoon. Pt resting in bed on BIPAP. Pt does not interact during visit. Offered therapeutic listening as spouse Damian discusses plan to place Pt on comfort care as soon as son arrives. Continued therapeutic listening and validated concerns. Damian expresses appreciation of visit. Palliative Care will F/U with supportive visits.
--- NOTE | 2022-01-14 16:00 | NUR ---
PT SPOUSE AND FAMILY MEMBERS REMAIN AT BEDSIDE. PT REQUEST THAT PT BE MADE COMFORT CARE AT 1630. AT THAT TIME, HE REQUESTS THAT ADL'S AND POSITION CHANGES BE DONE.
--- NOTE | 2022-01-14 17:00 | NUR ---
PT MADE COMFORT CARE PER KAITLYNN/SPOUSE REQUESTS. MED WITH MORPHINE 5 MG IVP X1 AND ATIVAN 2 MG IVP X1-THEN BIPAP MASK REMOVED AND 3 ATROPINE DROPS GIVEN. NO AIR HUNGER NOTED. PT BOOSTED IN BED AND HIPS SHIFTED-HEELS FLOATED. MULTIPLE FAMILY MEMBERS THEN ALLOWED IN THE ROOM.
--- NOTE | 2022-01-14 17:10 | NUR ---
PT -SURROUNDED BY FAMILY. FINAL DISCHARGE COMPLETED BY TA PURVIS. BELONGINGS SENT HOME WITH BENITO CALDERÓN SPOUSE.
--- NOTE | 2022-01-14 17:21 | NUR ---
Spiritual Care - EOL Follow up. Pt. had Bi-pap removed and faded quickly. Spouse and families jain spiritual support was present at [facility] [place], as was Virgilio from Palliative Care and Nurse Montaño. Condolences were given to the spouse. The family has chosen [facility] as their home of choice for pre-planned services. Communicated home detail to ICU desk.
--- NOTE | 2022-01-14 17:22 | NUR ---
Pt's family has arrived, spouse is ready to withdraw care. Primary RN provides comfort medication and BIPAP D/C. Pt passes away peacefully and comfortable. Offered condolences to family. Family appears to be grieving appropriately. Palliative Care will remain available.
== END 2022-01-14 17:50 | DRG 291 ==
LOC: ER 18:55 → MEDS 21:40 → PCU 01-08 17:00 → ICUW 01-12 11:45
PROVIDERS: Family Medicine; Hospitalist; Internal Medicine Nephrology; Pharmacist; Physician Assistant; Student in an Organized Health Care Education/Training Program; ADMIT Internal Medicine
PROC: 5A09457 Assistance with Respiratory Ventilation, 24-96 Consecutive Hours, Continuous Positive Airway Pressure (ICD-10-PCS; principal; 2022-01-11)
PROC: 3E03329 Introduction of Other Anti-infective into Peripheral Vein, Percutaneous Approach (ICD-10-PCS; 2022-01-11)
DX: I13.0 Hypertensive heart and chronic kidney disease with heart failure and stage 1 through stage 4 chronic kidney disease, or unspecified chronic kidney disease (principal); I60.9 Nontraumatic subarachnoid hemorrhage, unspecified; A41.01 Sepsis due to Methicillin susceptible Staphylococcus aureus; J96.01 Acute respiratory failure with hypoxia; G92.8 Other toxic encephalopathy; I50.33 Acute on chronic diastolic (congestive) heart failure; R65.20 Severe sepsis without septic shock; I16.1 Hypertensive emergency; N39.0 Urinary tract infection, site not specified; N25.81 Secondary hyperparathyroidism of renal origin; N17.9 Acute kidney failure, unspecified; Z51.5 Encounter for palliative care; R10.9 Unspecified abdominal pain; E11.22 Type 2 diabetes mellitus with diabetic chronic kidney disease; N18.30 Chronic kidney disease, stage 3 unspecified; J44.9 Chronic obstructive pulmonary disease, unspecified; F32.A Depression, unspecified; K21.9 Gastro-esophageal reflux disease without esophagitis; B96.89 Other specified bacterial agents as the cause of diseases classified elsewhere; E83.42 Hypomagnesemia; I25.10 Atherosclerotic heart disease of native coronary artery without angina pectoris; E78.5 Hyperlipidemia, unspecified; D63.1 Anemia in chronic kidney disease; E11.40 Type 2 diabetes mellitus with diabetic neuropathy, unspecified; I16.0 Hypertensive urgency; J98.01 Acute bronchospasm; E83.39 Other disorders of phosphorus metabolism; Z20.822 Contact with and (suspected) exposure to COVID-19; E83.41 Hypermagnesemia; E87.6 Hypokalemia; E88.09 Other disorders of plasma-protein metabolism, not elsewhere classified; T17.990A Other foreign object in respiratory tract, part unspecified in causing asphyxiation, initial encounter; Z90.49 Acquired absence of other specified parts of digestive tract; Z79.899 Other long term (current) drug therapy; Z95.1 Presence of aortocoronary bypass graft; Z88.8 Allergy status to other drugs, medicaments and biological substances; I25.2 Old myocardial infarction; Z88.2 Allergy status to sulfonamides; Z79.82 Long term (current) use of aspirin; Z79.02 Long term (current) use of antithrombotics/antiplatelets; Z99.81 Dependence on supplemental oxygen
CPT/HCPCS: 0241U; 36415; 70450; 70496; 71045; 74022; 74176; 80048; 80053; 80069; 80076; 80202; 81001; 81050; 82088; 82140; 82150; 82530; 82550; 82803; 82947; 83605; 83690; 83735; 83835; 83880; 84100; 84443; 84484; 85014; 85018; 85025; 87040; 87077; 87086; 87147; 87186; 92526; 92610; 93005; 93010; 93306; 94640; 94660; 94664; 94760; 94762; 96374; 97162; 97165; 97530; 97535; 99285-25; A9270; C1751; C9113; J0360; J0690; J0881; J1650; J1940; J2060; J2185; J2270; J2405; J2930; J3010; J3370; J3475; J7040; J7050; J7060; J7120; P9041; Q9967

== ENCOUNTER → 2022-01-03 | Outpatient (CLI) | payer MEDICARE, OTHER ==
[~2022-01-03] MED LIST changes: +ACET325 PO; +ALDACTONE25 MG PO; +AMLO5 PO; +CARBAMAZEPINE200 M1 PO; +CARDURA2 M2 PO; +CARV6.25 PO; +CATAPRES0.3 MG PO; +ESTROGEN PO; +ESTROVEN CMPLT M4 MG PO; +FLONASE ALLERG9.9 ML; +HYDRA50 PO; +IRON18 MG PO; +ISOSORBIDE MONO60 MG PO; +LOSA25 PO; +METO25ER PO; +OMEP20ER PO; +PRED1 PO; +SERTRALINE HCL50 MG PO; +SOAANZ40 MG PO; +Voltaren100 GM TOP
[2022-01-03 22:20] LABS: Creatinine Urine 59.5 mg/dL (27.00-270.00); Protein, Urine Quantitative 53.7 mg/dL (0.0-11.9)
== END | disposition home or self-care (01) ==
LOC: LAB SHORT 08:30 → LAB FUT 01-01 14:10
PROVIDERS: Internal Medicine Nephrology
DX: N18.30 Chronic kidney disease, stage 3 unspecified (principal); D63.1 Anemia in chronic kidney disease; N25.81 Secondary hyperparathyroidism of renal origin; E78.00 Pure hypercholesterolemia, unspecified; E55.9 Vitamin D deficiency, unspecified; R76.9 Abnormal immunological finding in serum, unspecified; R94.5 Abnormal results of liver function studies; R94.6 Abnormal results of thyroid function studies
CPT/HCPCS: 81050; 82043; 82570; 84156